=== PATIENT | female | born 1960 | race Caucasian/White ===

== ENCOUNTER 2024-09-11 13:42 | Inpatient (IN) | payer MEDICARE, OTHER, SELFPAY ==
[2024-09-11 07:20] VITALS: BP 121/87
--- NOTE | 2024-09-11 08:34 | ED.GENMED ---
History of Present Illness
General
Chief Complaint: Abdominal Symptoms
Time Seen by Provider: 09/11/24 08:09
History of Present Illness
History of Present Illness:
63-year-old female with history of breast cancer in remission (treatment in 2010) presents to the emergency department for evaluation of abdominal distention, weight loss, intolerance, and night sweats for the past 2 months. Saw her primary care
physician last week and was ordered for an outpatient oral and IV contrast CT scan however she is unable to tolerate significant amounts of oral hydration at this point. She reports abdominal discomfort but no overt pain. Denies dyspnea or chest
pain. No prior history of tobacco use. Denies any vaginal discharge or bleeding
Past History
Past History
ED Past Medical History: Cancer and Hyperthyroidism
ED Past Surgical History: Gynecological and Other
Patient has exhibited threatening behavior?: No
Social History
Tobacco: Non-smoker
Alcohol: None
Drug: None
Living: with family
Review of Systems
Review of Systems
Allergies reviewed?: Yes
All Other Systems: ROS reviewed and negative except as documented in HPI and ROS
Phy Exam
Physical Exam
Physical Exam:
GEN: Thin and cachectic, no immediate distress, generally pale
HEENT: Oral mucosa moist, no scleral icterus
Cardiac: Tachycardic, regular
Lung: No respiratory distress, no tachypnea, lungs CTAB
Abdomen: Severe distention/ascites, nontender
MSK: No gross deformity or injuries
Skin: Generally pale, no jaundice, no petechial lesions
Neuro: AO x3, moves all extremities freely
Psych: Calm, cooperative
Course
Orders/Labs/Results
Orders:
Orders
09/11/24 08:31
CT Abd/Pel (IV only)-DH only Urgent
Comment:
Reason For Exam: abd distention/bloating
09/11/24 08:33
Lactated Ringers [Lr] 500 ml IV BOLUS
09/11/24 08:36
Electrocardiogram (*1) Urgent
Reason for Study: Tachycardia
EKG- Treatment ONCE
09/11/24 09:08
Type+Screen Urgent
CA 125 Routine
Comment: ADD ON
CEA Routine
Comment: ADD ON
Complete Blood Count/With Diff Urgent
Comprehensive Metabolic Panel Urgent
Magnesium Urgent
09/11/24 12:48
Admit/Transfer Patient As Directed
Co-Sign Provider:
Level of Care: Inpatient admission
Assign to:: Telemetry
Physician / Group: pasricha/medicine
Diagnosis: decrease po intake, adnexal mass
Reason for Telemetry: Arrhythmia
Date to Stop Telemetry: 09/14/24
Time to Stop Telemetry: 11:00
Reason for Hospitalization: decrease po intake, adnexal mass
Expected length of stay greater than two midnights?: Yes
ELOS- Estimated Length of Stay in days: 3
I certify the patient meets the requirements for IP care: Yes
PRN Pain Medication Management As Directed
May give lesser potent ordered pain med per pt: Yes
preference::
Protocol:: Medication orders for pain may be administered in a
manner that supports deferring to patient preference
when the pt is:
- Requesting an ordered lesser potent pain medication.
Least to most potent pain medications are defined
as: acetaminophen < NSAID < tramadol < opioids
(morphine, oxycodone, hydromorphone).
- Requesting a lesser dose of the same medication IF
ORDERED.
- Requesting a less intrusive route of administration
if both routes are prescribed by the provider (PO <
IV).
09/11/24 12:51
Code Status As Directed
Resuscitation Status: Full Code
09/14/24 11:00
DC Protocol for Telemetry ONCE
Abnormal Lab Results
09/11/24
09:08
MCH 26.4 L pg
(27.0-31.0)
MCHC 31.7 L g/dL
(33.0-37.0)
RDW 17.4 H %
(11.5-14.5)
Plt Count 467 H 10^3/uL
(130-400)
Abs Immat Gran (auto) 0.1 H 10^3/uL
(0-0.05)
Absolute Neuts (auto) 8.7 H 10^3/uL
(1.4-6.5)
Absolute Lymphs (auto) 0.8 L 10^3/uL
(1.2-3.4)
Immature Gran % 0.6 H %
(0-0.5)
Neutrophils % 85.1 H %
(42.2-75.2)
Lymphocytes % 7.9 L %
(20.5-51.1)
Potassium 5.3 H mmol/L
(3.5-5.1)
Glucose 119 H mg/dl
(70-99)
AST 56 H U/L
(14-36)
Alkaline Phosphatase 181 H U/L
(38-126)
09/11/24 09:08
09/11/24 09:08
Vital Signs
Initial and Last Documented VS:
Initial Vital Signs
Temp Pulse BP Pulse Ox
97.7 F 136 121/87 98
09/11/24 07:20 09/11/24 07:20 09/11/24 07:20 09/11/24 07:20
Last Documented Vital Signs
Temp Pulse Resp BP Pulse Ox
97.7 F 114 20 110/79 97
09/11/24 07:20 09/11/24 12:00 09/11/24 12:00 09/11/24 12:00 09/11/24 12:00
MDM/Problems Addressed
MDM/Problems Addressed:
Patient with newly diagnosed ovarian masses significant peritoneal carcinomatosis as well as ascites, will require admission due to inability to tolerate p.o. fluids, [employer] On[facility] consulted for inpatient evaluation
*Pulse Oximetry
SaO2: 98
Patient hypoxic: no
*Critical Care Note
Total Time (30-74mins, 75-104mins- exclusive of procedures): Not Applicable
ED Attending Note
-
Portions of this chart may have been created with voice recognition software.� Occasional wrong word or��sound alike� substitutions may have occurred due to the inherent limitations of voice recognition software.
Discharge Plan
Departure
Patient Disposition: Admit
Date of Disposition: 09/11/24
Time of Disposition: 11:31
Admit to: Med/Surg
Presentation/result/management discussed w/ accepting MD/DO: Hospitalist
Discharge Problem:
Mass of ovary, Peritoneal carcinomatosis, Abdominal ascites
Interventions
Interventions:
*Risk Screen - Suicide Last Done: 09/11/24 07:23
*General Assessment Last Done: 09/11/24 14:00
*Neglect/Abuse Screening Last Done: 09/11/24 14:00
*ED- Fall Risk Assessment Last Done: 09/11/24 14:00
UU-Bzpbjf-Pmbirdldjj Assessment Last Done: 09/11/24 14:00
[2024-09-11] MEDS: LR 500 IV (09:12)
[2024-09-11 09:30] LABS: Hematocrit 41.3 % (37.0-47.0); Hemoglobin 13.1 g/dL (12.0-16.0); Mean Corp Hgb Conc. 31.7 g/dL (33.0-37.0); Mean Corpuscular Volume 83.1 fL (81.0-99.0); Nucleated Red Blood Cells % 0 %; Platelet Count 467 10^3/uL (130-400); Red Cell Dist. Width 17.4 % (11.5-14.5)
[2024-09-11 09:48] LABS: ALT (SGPT) 12 U/L (0-35); AST (SGOT) 56 U/L (14-36); Albumin 3.6 g/dl (3.5-5.0); Alkaline Phosphatase 181 U/L (38-126); Blood Urea Nitrogen 16 mg/dl (7-17); Calcium 8.9 mg/dl (8.4-10.2); Carbon Dioxide 23 mmol/L (22-30); Chloride 104 mmol/L (98-107); Glucose 119 mg/dl (70-99); Magnesium 2.1 mg/dl (1.6-2.3); Potassium 5.3 mmol/L (3.5-5.1); Sodium 138 mmol/L (135-145); Total Protein 6.7 g/dl (6.3-8.2); eGFR > 60.00
[2024-09-11 12:00] VITALS: BP 110/79
--- NOTE | 2024-09-11 12:25 | PHANOTE ---
09/11/2024, was prescribed Atorvastatin 20 mg to be taken daily for 90-day supply on 09/07/2024, but has not started taking it yet per pt.
--- NOTE | 2024-09-11 12:57 | HPS.HSE ---
Family Physician
-
Family Physician: JULEE John
Chief Complaint
-
Abdominal distention, weight loss, intolerance of night sweats for the past 2 months
History of Present Illness
Patient is a 63-year-old female with past medical history of breast cancer in remission with treatment in 2010 now presenting for apprimately 2 months of abdominal distention, weight loss, PO intolerance and night sweats. Patient was seen by
primary care physician due to the symptoms last week and had ordered CT imaging although unable to tolerate p.o. intake. Denies fever, chills, nausea, vomiting although does have abdominal discomfort due to distention. No chest pain. No vaginal
bleeding or discharge. Cannot tolerate PO even with appetite due to distension. Vitals remarkable for heart rate of 136, temperature is afebrile, with blood pressure 121/87, saturating 98% on room air. Imaging notable for large heterogeneous,
mixed cystic and solid lesions within the adnexa which extends to the mid abdomen. Also noted to have omental caking, likely representing metastatic disease, moderate ascites and moderate right pleural effusions. Also noted hypodensities within
the right hepatic lobe concerning for metastasis. Further has heterogeneous appearance of the lumbar spine and pelvis, may be secondary to osteopenia although osseous metastasis is now excluded. Mild bilateral hydronephrosis, likely secondary
large pelvic lesions. Labs notable for potassium of 5.3, AST 56, alk phos 181.
Medical History
Past Medical History
Past Medical History: Reports Hyperthyroidism and Other (Breast cancer in remission, treatment 2010)
Past Surgical History: Reports Gynocological
Social History
Tobacco: Non-smoker
Alcohol: None
Drug: None
Living: With Family
Family History
Family History: Not pertinent
Allergies / Home Medications
Allergies reflects when Allergies were last updated in [facility].
Home Medications with original date entered in [facility]
Allergy/Medication List:
Allergies
Allergy/AdvReac Type Severity Reaction Status Date / Time
Cephalosporins Allergy Unknown Verified 07/09/21 13:10
penicillin G Allergy Unknown Verified 07/09/21 13:10
Penicillins Allergy Unknown Verified 07/09/21 13:10
Home Medications
No Meds [No Current Medications] 09/11/24
Review of Systems
-
History Source: Patient
A 12 point ROS was completed and negative except as noted: Yes
Physical Exam
Vital Signs
Vital Signs
Temp Pulse BP Pulse Ox
97.7 F 136 121/87 98
09/11/24 07:20 09/11/24 07:20 09/11/24 07:20 09/11/24 08:35
Physical Exam
General: Cachectic and Other (Thin, no immediate distress)
HEENT: NormoCephalic and Anicteric
Respiratory: Clear
Cardiac: Tachycardia
GI: Non Tender and Distended
Musculoskeletal: No Clubbing
Skin: Warm
Neuro: Awake, Alert, Oriented and AO x 3
Hematologic/Lymphatic: No Lymphadenopathy
Laboratory Results
-
09/11/24 09:08
09/11/24 09:08
Laboratory Results
Total Bilirubin 0.7 mg/dl (0.2-1.3) 09/11/24 09:08
AST 56 U/L (14-36) H 09/11/24 09:08
ALT 12 U/L (0-35) 09/11/24 09:08
Alkaline Phosphatase 181 U/L (38-126) H 09/11/24 09:08
Data Reviewed
-
CT Scan: Report Reviewed by me
Lab Data: Labs Reviewed by me
Impression/Plan
-
IMPRESSION:
63-year-old female with past medical history of breast cancer in remission with treatment in 2010 now presenting for 2 months of abdominal distention, weight loss, intolerance and night sweats. Imaging concerning for adnexal mass with metastatic
disease
PLAN:
#Abdominal distention
� Moderate ascites on imaging
� Paracentesis ordered
� Follow-up cytology
� Supportive care, pain control, antiemetics with Tigan as QTc elevated
#Decreased p.o. intake
� Most likely secondary to abdominal distention as well as metastatic disease
� Attempt liquid diet if has any appetite
� Hopeful diet will improve after paracentesis
#Heterogeneous large mixed cystic and solid lesions within the adnexa extending into the mid abdomen
#Omental caking, peritoneal thickening, suspicious of metastatic disease
#Moderate ascites and moderate right pleural effusion
#Hypodensities in the right hepatic lobe
#Heterogeneous appearance of the lumbar spine
� See plan above
� Oncology consulted
� Otm Consultant/Onc consulted
#Transaminitis
� Secondary to above
� See plan above
#Mild bilateral hydronephrosis
� No SHIVANI
� Likely secondary to large pelvic lesions
� Monitor
#Small/moderate hiatal hernia containing ascites
#DVT prophylaxis
� HSQ
--- NOTE | 2024-09-11 14:23 | CON.ONC ---
Consultation
-
Date Consultation Requested: 09/11/24
Date Consultation Performed: 09/11/24
Requesting Provider: Dr Efrain Bryson
Performing Provider: Dr Lacy Ellington
Reason for Consultation: ovarian cancer
Impression
Impression
likely ovarian cancer, with carcinomatosis
h/o breast cancer, 2011, treated w/ chemo, anti-estrogen therapy
Plan
Plan
IR paracentesis for palliation and cytology
Will also ask them to obtain a tissue biopsy at the same time
CA-125, CEA, CA27-29 pending
po diet as tolerated, antiemetics if needed
Briefly discussed the likelihood that she'll need chemo first, then debulking surgery
Will need genetic testing
Dr. العراقي to see patient tomorrow
Patient History
History of Present Illness
This is a 63 yo F who noted increasing abdominal distention and discomfort over the past couple months. She recently csought evaluation with her PMD, whom she hadn't seen regularly, and CT was ordered, but she was unable to wait for outpatient w/u
due to increased symptoms (nausea, vomiting/regurgitation, distention), so she presented to the ER.
CT showed:
There are large heterogeneous, mixed cystic and solid lesions within the adnexa which extend into the mid abdomen and are highly concerning for ovarian malignancy. The larger lesion on the right measures up to 18.7 cm. There is associated omental
caking, peritoneal thickening and enhancement which likely represent metastatic disease. There are numerous small nodules within the mesentery suspicious for mesenteric implants. There is associated moderate ascites and a moderate right pleural
effusion.
Hypodensities within the right hepatic lobe measuring up to 5 mm, concerning for metastasis in the setting of malignancy.
There is heterogeneous appearance of the lumbar spine and pelvis may be secondary to osteopenia although underlying osseous metastasis cannot be excluded.
There is mild bilateral hydronephrosis, more pronounced on the left, likely secondary to the large pelvic lesions.
Medical hx is noted for breast cancer around 2011, treated with surgery, chemo (ddAC-T?), radiation, and anti-estrogen therapy (Dr. Velazquez and Dr. Reyna Rios at [facility]). She has not had genetic testing. Her father from stomach cancer. She's
overdue for mammogram. Her PMD had done her [employer] exams, but none recently.
Past-Medical/Surgical History
PMH/PSH - as above
Social History
Tobacco: Non-smoker
Alcohol: None
Drug: None
Living: With Family
Family History
Family History: Not pertinent
Patient Medication
�Medication �Instructions �Recorded �Confirmed �Last Taken �Type
No Meds [No Current Medications] 09/11/24 09/11/24 Unknown History
Physical Exam
-
General: Appears Chronically Ill; Negative Well Developed
HEENT: Negative Jaundice
Cardiology: Normal Sinus Rhythm
Pulmonary: Other (decreased BS in right lower hemithorax)
GI: Distended and Other (mass palpated in far RLQ)
Neurology: Non Focal, No Lateralizing Symptoms and No Word Finding Difficulty
Skin: Warm and Dry
Psych: Calm and Intact Judgement/Insight
Labs
Lab Results
WBC 10.3 10^3/uL (4.8-10.8) 09/11/24 09:08
RBC 4.97 10^6/uL (4.20-5.40) 09/11/24 09:08
Hgb 13.1 g/dL (12.0-16.0) 09/11/24 09:08
Hct 41.3 % (37.0-47.0) 09/11/24 09:08
MCV 83.1 fL (81.0-99.0) 09/11/24 09:08
MCH 26.4 pg (27.0-31.0) L 09/11/24 09:08
MCHC 31.7 g/dL (33.0-37.0) L 09/11/24 09:08
RDW 17.4 % (11.5-14.5) H 09/11/24 09:08
Plt Count 467 10^3/uL (130-400) H 09/11/24 09:08
MPV 9.1 fL (7.4-10.4) 09/11/24 09:08
Abs Immat Gran (auto) 0.1 10^3/uL (0-0.05) H 09/11/24 09:08
Absolute Neuts (auto) 8.7 10^3/uL (1.4-6.5) H 09/11/24 09:08
Absolute Lymphs (auto) 0.8 10^3/uL (1.2-3.4) L 09/11/24 09:08
Absolute Monos (auto) 0.6 10^3/uL (0.1-0.6) 09/11/24 09:08
Absolute Eos (auto) 0.0 10^3/uL (0-0.7) 09/11/24 09:08
Absolute Basos (auto) 0.1 10^3/uL (0-0.2) 09/11/24 09:08
Immature Gran % 0.6 % (0-0.5) H 09/11/24 09:08
Neutrophils % 85.1 % (42.2-75.2) H 09/11/24 09:08
Lymphocytes % 7.9 % (20.5-51.1) L 09/11/24 09:08
Monocytes % 5.9 % (1.7-9.3) 09/11/24 09:08
Eosinophils % 0.0 % (0-6) 09/11/24 09:08
Basophils % 0.5 % (0-2) 09/11/24 09:08
Creatinine 0.8 mg/dL (0.6-1.0) 09/11/24 09:08
Vital Signs
Vital Signs
Temp Pulse Resp BP Pulse Ox
97.7 F 114 20 110/79 97
09/11/24 07:20 09/11/24 12:00 09/11/24 12:00 09/11/24 12:00 09/11/24 12:00
[2024-09-11 14:51] LABS: CEA 45.6 ng/ml
[2024-09-11 15:00] VITALS: BP 127/83
[2024-09-11] MEDS: MORPHINE SULFATE 2 MG IV ×2 (15:22→19:57)
[2024-09-11] MEDS: D5/0.45%NACL 1000 IV (15:22)
[2024-09-11 15:57] VITALS: BMI 21.5
[2024-09-11] MEDS: TORADOL 10 MG IV (17:49)
[2024-09-11 19:42] VITALS: BP 121/80
[2024-09-11] MEDS: DILAUDID 0.25 MG IV (21:54)
[2024-09-11 23:56] VITALS: BP 126/85
[2024-09-12] VITALS (8 sets, daily range): BP systolic 104–149; BP diastolic 69–101; BMI 21.5
[2024-09-12] MEDS: MORPHINE SULFATE 2 MG IV ×2 (00:48→20:48)
[2024-09-12] MEDS: D5/0.45%NACL 1000 IV ×2 (04:21→21:31)
[2024-09-12] MEDS: DILAUDID 0.25 MG IV (04:21)
[2024-09-12 07:30] LABS: Hematocrit 34.1 % (37.0-47.0); Hemoglobin 10.9 g/dL (12.0-16.0); Mean Corp Hgb Conc. 32.0 g/dL (33.0-37.0); Mean Corpuscular Volume 82.8 fL (81.0-99.0); Platelet Count 424 10^3/uL (130-400); Red Cell Dist. Width 17.2 % (11.5-14.5)
[2024-09-12 07:48] LABS: ALT (SGPT) < 10 U/L (0-35); AST (SGOT) 45 U/L (14-36); Albumin 3.1 g/dl (3.5-5.0); Alkaline Phosphatase 148 U/L (38-126); Blood Urea Nitrogen 21 mg/dl (7-17); Calcium 8.6 mg/dl (8.4-10.2); Carbon Dioxide 26 mmol/L (22-30); Chloride 107 mmol/L (98-107); Estimated Creatinine Clearance 57 ml/min; Glucose 135 mg/dl (70-99); Magnesium 2.1 mg/dl (1.6-2.3); Potassium 4.5 mmol/L (3.5-5.1); Sodium 136 mmol/L (135-145); Total Protein 6.0 g/dl (6.3-8.2); eGFR > 60.00
--- NOTE | 2024-09-12 08:33 | W.CON.GYNONC ---
Consultation
-
Date/Time Consultation Requested: 09/12/2024
Date/Time Consultation Performed: 09/12/2024
Performing Provider: Mickey العراقي
Reason for Consultation: Pelvic mass, Ascites
Chief Complaint
-
abdominal fullness
History of Present Illness
63 yo menopausal white female who noted increasing abdominal distention and discomfort over the past couple months. She recently sought evaluation from PCP at [place], and CT was ordered. Due to increased symptoms (nausea,
vomiting/regurgitation, distention), so she presented to the ER. Patient has had abnormal weight loss of about 15 pounds over the last 6 months. Patient describes sensation of shortness of breath with activity, has no ability to eat. Gets full
very fast, describes discomfort due to abdominal distention
CT showed:
There are large heterogeneous, mixed cystic and solid lesions within the adnexa which extend into the mid abdomen and are highly concerning for ovarian malignancy. The larger lesion on the right measures up to 18.7 cm. There is associated omental
caking, peritoneal thickening and enhancement which likely represent metastatic disease. There are numerous small nodules within the mesentery suspicious for mesenteric implants. There is associated moderate ascites and a moderate right pleural
effusion. Hypodensities within the right hepatic lobe measuring up to 5 mm, concerning for metastasis in the setting of malignancy. There is heterogeneous appearance of the lumbar spine and pelvis may be secondary to osteopenia although underlying
osseous metastasis cannot be excluded.There is mild bilateral hydronephrosis, more pronounced on the left, likely secondary to the large pelvic lesions.
PMH:
Hypercholestrolemia
Breast cancer around 2011, treated with surgery, chemo (ddAC-T), radiation, and anti-estrogen therapy (Dr. Velazquez and Dr. Reyna Rios at [facility]). Patient has been getting MRI of the breast, has not had one for couple years
PSH:
Right kidney surgery for kidney stone at age 20
Left kidney surgery for abnormal ureter, ureteral reconstruction
C section
Past gynecologic history: term , 36 yrs ago, delivered by c section
Menopause at age 49
Denies previous Pap smears. Exams were done by PCP but has not had one for a few years
Family history: Father with stomach cancer
Patient has not undergone germline genetic testing
Social history: Patient is an artist graphic design, denies tobacco drug or marijuana use, has had occasional seldom alcohol
She is but has a ongoing relationship with ex-
Screening tests: Colonoscopy in 2016, EGD and colonoscopy in 2021
Mammogram none
Medical History
Allergies
Allergies reflect when allergies were last updated in [facility].
Cephalosporins Allergy (Verified 07/09/21 13:10)
Unknown
penicillin G Allergy (Verified 07/09/21 13:10)
Unknown
Penicillins Allergy (Verified 07/09/21 13:10)
Unknown
Physical Exam
Vital Signs / I&O
Vitals
Temp Pulse Resp BP Pulse Ox
98.0 F 109 17 112/76 98
09/12/24 07:00 09/12/24 07:00 09/12/24 07:00 09/12/24 07:00 09/12/24 07:00
I&O
09/10/24 09/11/24 09/12/24 09/13/24
06:59 06:59 06:59 06:59
Intake Total 900 / 900
Balance 900 / 900
Physical Exam
General: Other (Resting in bed, she appears to be chronically ill with temporal wasting and has apparent abnormal weight loss)
HEENT: Normocephalic
Respiratory: Non Labored Respirations and Other (There is no breath sounds in the lower half of right lung, at rest she does not have any labored respirations)
Cardiac: Tachycardia
GI: Distended and Other (There is firmness in the right lower abdomen, fluid wave present)
Musculoskeletal: No Clubbing, No Cyanosis and No Edema
Skin: Warm and Dry
Neuro: Awake, Alert and Oriented
Hematologic/Lymphatic: No Lymphadenopathy
Psych: Calm and Anxious
Results
-
09/12/24 06:03
09/12/24 06:03
Diagnostic Imaging Report
SignedOrder #:[id number]
Exams: CT Abd/Pel (IV only)-DH only
PROCEDURES: CT Abd/Pel (IV only)-DH only
CLINICAL INDICATION: abd distention/bloating
TECHNIQUE: Multiphasic CT of the abdomen and pelvis was performed from the lung bases to the pubic symphysis following the uneventful intravenous administration of 100 mL of Omnipaque 350. Scanning was performed during both the portal venous and
delayed phases of enhancement. Axial reconstructions and sagittal and coronal reformats provided. Automated dose reduction technique was utilized for this exam
COMPARISON: CT abdomen pelvis 05/24/2021.
FINDINGS:
Lower Chest: There is a moderate pleural effusion with associated right basilar atelectasis. Small/moderate hiatal hernia containing ascites.
Abdomen:
Liver: There are small hypodensities within the right hepatic lobe measuring up to 5 mm laterally (series 201 image 15).
Bile Ducts: Within normal limits.
Gallbladder: Nondistended.
Pancreas: There is a 3 mm hypodense focus within the tail (series 201 image 25).
Spleen: Within normal limits.
Adrenals: No discrete nodule.
Kidneys/Ureters: Mild hydronephrosis, more pronounced on the left.
Bowel: No obstruction or wall thickening. There is mass effect on the bowel secondary to the large lesions described below.
Peritoneum: There is moderate ascites with extensive peritoneal thickening and enhancement most pronounced in the right upper quadrant as well as omental soft tissue nodules measuring up to 3.5 x 2.2 cm in the left mid/lower abdomen (series 201
image 47). There are numerous small nodules within the mesentery suspicious for mesenteric implants.
Reproductive Organs: There are large, heterogeneous mixed cystic and solid lesions within the pelvis extending into the right abdomen which measures approximately 18.5 x 11.0 x 18.7 cm on the right (series 201 image 52 and series 203 image 38).
There appears to be a likely separate left adnexal lesion which measures approximately 7.6 x 4.9 x 6.1 cm (series 201 image 70 and series 203 image 49).
Bladder: Nondistended.
Vessels: There is no abdominal aortic aneurysm.
Retroaortic left renal vein.
Retroperitoneum: There is no definite lymphadenopathy. Abdominal Wall: Within normal limits.
Bones: No evidence acute fracture. There is heterogeneous appearance of the pelvis and spine which may be secondary to osteopenia although in the setting of malignancy osseous metastasis cannot be excluded.
IMPRESSION:
There are large heterogeneous, mixed cystic and solid lesions within the adnexa which extend into the mid abdomen and are highly concerning for ovarian malignancy. The larger lesion on the right measures up to 18.7 cm. There is associated omental
caking, peritoneal thickening and enhancement which likely represent metastatic disease. There are numerous small nodules within the mesentery suspicious for mesenteric implants. There is associated moderate ascites and a moderate right pleural
effusion.
Hypodensities within the right hepatic lobe measuring up to 5 mm, concerning for metastasis in the setting of malignancy.
There is heterogeneous appearance of the lumbar spine and pelvis may be secondary to osteopenia although underlying osseous metastasis cannot be excluded.
There is mild bilateral hydronephrosis, more pronounced on the left, likely secondary to the large pelvic lesions.
Small/moderate hiatal hernia containing ascites.
Recommend gynecologic oncology referral.
Electronically signed by Brant Schmitt MD, 09/11/2024 10:52 AM
[employer] Dose Report: Up-to-date CT equipment and radiation dose reduction techniques were employed. CTDIvol: 6.6 mGy. DLP: 682 mGy-cm.
Dictated By: Brant Schmitt MD
Dictated Date & Time: 09/11/24 1034
Impression / Plan
-
63-year-old woman presenting with pelvic mass abdominal ascites carcinomatosis and right pleural effusion. She has evidence of tachycardia, abnormal weight loss, and her labs are significant for anemia, thrombocytosis. Because of prior history of
breast cancer we need to consider this in the differential diagnosis. Her CEA is quite elevated at 46 which is unusual for gynecologic cancers, consider possibility of a primary GI cancer, it may be reasonable to ask GI for colonoscopy and
endoscopy although we will be difficult given current state. This patient is not a candidate for upfront surgery even if gynecologic cancer is confirmed on histology, I do recommend the following approach, with the understanding that most likely
the patient will need to undergo neoadjuvant chemotherapy followed by consideration of interval debulking surgery.
1. Pelvic mass: While this presentation is typical for gynecologic cancers further workup is required.
- Recommend pelvic ultrasound, as well as pelvic MRI
-IR to perform paracentesis
- CA125 pending
- IR biopsy of the omentum is recommended
2. Pleural effusion
- IR to perform right thoracentesis, therapeutic and diagnostic, sent for cytology
3. Tachycardia
- Patient is at high risk for pulmonary embolism. CT chest with PE protocol,
-Dopplers of the lower extremity
- Patient needs a baseline echocardiogram given prior history of Adriamycin chemotherapy for breast cancer
4. Anemia
- Will send labs for ferritin B12 folic acid but it may be due to anemia of chronic disease
5. History of complex urologic surgery
When surgical plan is made for this patient we need to involve urology and consider stent placement because of reconstruction as well as mobilization of ureter previously. Consider outpatient CT urogram
Mickey العراقي MD
Gynecologic Oncology
[facility]
--- NOTE | 2024-09-12 09:20 | W.PN.HOSP.TC ---
Today's Communication/Plan
-
see plan
Assessment / Plan
Assessment / Plan
63 F with past medical history of breast CA in remission with tx in 2010 now presenting for 2 months of abdominal distention, weight loss, intolerance and night sweats. Imaging concerning for adnexal mass with metastatic disease.
Gen: NAD, AAOx3, appears chronically ill.
Eyes: EOMI, PERRLA, no scleral icterus.
Neck: supple.
CV: RRR, +S1/S2, no m/r/g.
Resp: CTAB, no rales, wheezes, or rhonchi.
Abd: +BS, soft, NT, mild distention with ascites, palpable lower abdominal mass
Skin: No rashes.
Neuro: CN 2-12 intact, non-focal.
Psych: Normal mood and affect.
CT A/P: There are large heterogeneous, mixed cystic and solid lesions within the adnexa which extend into the mid abdomen and are highly concerning for ovarian malignancy. The larger lesion on the right measures up to 18.7 cm. There is associated
omental caking, peritoneal thickening and enhancement which likely represent metastatic disease. There are numerous small nodules within the mesentery suspicious for mesenteric implants. There is associated moderate ascites and a moderate right
pleural effusion. Hypodensities within the right hepatic lobe measuring up to 5 mm, concerning for metastasis in the setting of malignancy. There is heterogeneous appearance of the lumbar spine and pelvis may be secondary to osteopenia although
underlying osseous metastasis cannot be excluded. There is mild bilateral hydronephrosis, more pronounced on the left, likely secondary to the large pelvic lesions. Small/moderate hiatal hernia containing ascites.
Abdominal distention:
-CT A/P above with findings concerning for solid lesion (possibly ovarian malignancy) with evidence of likely metastatic disease (omental caking, peritoneal thickening, numerous small nodules in the mesentery)
-s/p Dx/Tx paracentesis for 1L, follow cytology
-ONC and [facility]scape [facility]-ONC following (discussed with consultants)
-pain control, antiemetics
-decreased PO intake likely due to abdominal pathology, liquid diet for now pending paracentesis (although pt states vomiting this AM and inability to 'keep anything down')
-cont IVFs
-transaminitis likely due to abdominal process
-mild bilateral hydronephrosis (without SHIVANI) likely due to large pelvic lesion
-CEA 45.6
-check CA-125, CA27-29
Anemia:
-likely anemia of chronic disease
-drop in Hb likely dilutional
Small/moderate hiatal hernia containing ascites
FULL/heparin
Total time spent on today's encounter was 50 minutes which included time spent in counseling the patient/family regarding diagnosis and treatment plan as listed above, goals of care, and symptom management. Case was discussed with nursing staff,
specialists, and care coordinators/case management. All labs and imaging personally reviewed by me. Remainder the time spent in detailed review of previous records, lab data, imaging, and other medical provider documentation.
Anticipated Discharge: 24 - 48 hours
Subjective/Interval History
-
Date of Service: September 12, 2024
No new complaints.
Objective Data
-
Labs:
Laboratory Results
09/12/24
06:03
WBC 10.1
Hgb 10.9 L
Hct 34.1 L
Plt Count 424 H
Sodium 136
Potassium 4.5
Chloride 107
Carbon Dioxide 26
BUN 21 H
Creatinine 0.8
Glucose 135 H
Calcium 8.6
Total Bilirubin 0.5
AST 45 H
ALT < 10
Alkaline Phosphatase 148 H
Vital Signs:
Vital Signs
Temp Pulse Resp BP Pulse Ox
98.0 F 109 17 112/76 98
09/12/24 07:00 09/12/24 07:00 09/12/24 07:00 09/12/24 07:00 09/12/24 07:00
I&O
09/11/24 09/12/24 09/13/24
06:59 06:59 06:59
Intake Total 900 / 900
Balance 900 / 900
[2024-09-12 09:33] LABS: Iron 25 ug/dl (37-170)
--- NOTE | 2024-09-12 11:49 | W.PN.UPDATE ---
Update Note
Progress Note Update
- Paracentesis performed this morning - 1L removed.
- Pt feeling better after para, non-toxic and non-labored breathing. She also has a moderate right effusion which we can re-evaluate tomorrow
- Request from oncology for omental biopsy. Will tentatively schedule for tomorrow; will need CT guidance and also pathology on hand.
- NPO past midnight please.
[2024-09-12 11:53] LABS: Ferritin 367.0 ng/ml (11.1-264.0)
[2024-09-12 12:24] LABS: Folate 2.1 ng/ml (2.76-20); Vitamin B12 273 pg/ml (239-931)
[2024-09-12 12:40] LABS: Body Fluid Second Tech EF
[2024-09-12] MEDS: DILAUDID 0.5 MG IV (22:34)
[2024-09-13] VITALS (16 sets, daily range): BP systolic 99–123; BP diastolic 59–84
--- NOTE | 2024-09-13 03:28 | PTCARENOTE ---
Oral care was not performed on patient because she stated that it was her preference to brush her teeth in the morning.
--- NOTE | 2024-09-13 07:21 | PTCARENOTE ---
The 480 ml consumed was in the form of ice chips.
--- NOTE | 2024-09-13 08:37 | W.PN.GYNONC ---
Today's Communication
-
IR for omental biopsy and thoracenthesis
Cardiac clearance
port placement tomorrow
Impression / Plan
-
63-year-old woman presenting with pelvic mass abdominal ascites carcinomatosis and right pleural effusion. She has evidence of tachycardia, abnormal weight loss, and her labs are significant for anemia, thrombocytosis. I spoke at length with
patient and her ex- yesterday evening about ongoing investigations as well as potential plans for Neoadjuvant chemo if diagnosis of ovarian or mullerian tract malignancy is confirmed. She is not a good candidate for upfront surgery due to low
albumin 3.1, large pleural effusion and significant weight loss.
1. Pelvic mass:
- US confirms complex masses in both adnexa, uterus is normal, ascites seen
- 1L malignant ascites removed, cytology pending
- CA125 pending
- IR biopsy of the omentum is scheduled (today)
- Consider port placement prior to discharge
2. Pleural effusion
- IR to perform right thoracentesis, therapeutic and diagnostic, send for cytology, discussed with atttending stitcher tape controlled machine (today)
3. Tachycardia
-CT chest shows large pleural effusion, no PE, US LE shows no DVT
- Patient needs a baseline echocardiogram given prior history of Adriamycin chemotherapy for breast cancer
-consider getting a cardiac clearance for potential surgery (interval debulking)
4. Anemia
- Both Folate and B12 are low, recommend supplementation, ferritin is ok, elevated probably reactive
5. History of complex urologic surgery
When Interval debulking surgical plan is made for this patient we need to involve urology and consider stent placement because of reconstruction as well as mobilization of ureter previously. Consider outpatient CT urogram
Mickey العراقي MD
Gynecologic Oncology
[facility]

Subjective / Interval History
-
HD3
Patient feels better, was able to eat yesterday evening
Objective Data
-
Lab Results:
09/12/24 06:03
09/12/24 06:03
iagnostic Imaging Report
SignedOrder #:[id number]
Exams: CT Chest PE Study
EXAMINATION: CT angiography of the chest, pulmonary embolism protocol
CPT: 87332
INDICATION: 63-year-old with tachycardia and pleural effusion
COMPARISON: Chest radiograph of June 23, 2021. CT of the abdomen and pelvis from September 11, 2024.
FINDINGS: Intravenous contrast-enhanced CT angiography of the chest is performed with protocol designed for evaluation for pulmonary embolism. Source axial images are reviewed as well as 3-D volume and multiplanar reconstructions. Automatic
exposure control radiation dose reduction technology was utilized.
Pulmonary arteries are well-opacified, and examination is negative for pulmonary embolism.
Moderate to large right pleural effusion is present. There is slight irregular thickening of the hemidiaphragm, and combined with findings on CT of the abdomen and pelvis raises the possibility of malignant pleural effusion, although still could be
a reactive pleural effusion. Mild dependent atelectasis in the posterior right lung.
There is a trace amount of left pleural fluid with minimal dependent atelectasis in the posterior left lower lung.
Mild peripheral increased interstitial markings in the anterolateral lingula, perhaps from radiation therapy with surgical clips seen within the left breast.
There is a small central hiatal hernia, with abdominal fluid extending superiorly through the hernia.
The thoracic aorta appears normal with no significant atherosclerotic disease and no evidence of aneurysm.
The right lobe of the thyroid is larger than the left, although without evidence of a dominant nodule.
No grossly enlarged mediastinal, hilar, or axillary lymph nodes are identified.
Large amount of ascites in the visualized upper abdomen with findings suggesting peritoneal carcinomatosis. Mild fatty infiltration the liver. Minimal levoconvex scoliosis centered in the lower thoracic spine. Vertebral body heights are maintained.
No CT evidence to suggest bony metastatic disease within the chest.
IMPRESSION: Examination is negative for pulmonary embolus.
Moderate to large right pleural effusion with mild adjacent compressive atelectasis.
Trace amount of left pleural fluid with minimal dependent atelectasis in the posterior left lung.
Small central hiatal hernia, with abdominal ascites extending superiorly through the hernia.
The right lobe of the thyroid is larger than the left. This has been previously evaluated on thyroid ultrasound of January 19, 2020.
Large amount of ascites in the visualized upper abdomen with findings suggesting peritoneal carcinomatosis. Mild fatty infiltration of the liver
Electronically signed by Kenney Ramírez MD, 09/12/2024 12:23 PM
[employer]imetric[employer] Dose Report: Up-to-date CT equipment and radiation dose reduction techniques were employed. CTDIvol: 2.4 - 7.3 mGy. DLP: 245 mGy-cm.
Dictated By: Kenney Ramírez MD.
Dictated Date & Time: 09/12/24 1213
Diagnostic Imaging Report
SignedOrder #:[id number]
Exams: US Periph Venous LOWER Ext [place]
EXAMINATION: Bilateral lower extremity duplex venous ultrasound
CPT: 89872
INDICATION: Lower extremity edema. 63-year-old with adnexal mass. Concern for DVT.
COMPARISON: No previous lower extremity venous ultrasound is available.
FINDINGS: Duplex venous ultrasound of both lower extremities is performed.
There is no evidence for deep venous thrombosis bilaterally. There is normal compressibility, color flow, and spectral Doppler flow of the deep venous system bilaterally from the common femoral vein through the posterior tibial vein. The proximal
greater saphenous veins are also patent bilaterally.
On the right, there is a Knight's cyst which measures 2.6 x 0.7 x 1.3 cm.
On the left, there is a Knight's cyst which measures 2.3 x 1.1 x 1.6 cm.
IMPRESSION: No evidence of deep venous thrombosis bilaterally.
Electronically signed by Kenney Ramírez MD, 09/12/2024 12:01 PM
Diagnostic Imaging Report
SignedOrder #:[id number]
Exams: US Pelvis Only (non-obstetric)
EXAMINATION: Ultrasound pelvis only
INDICATION: 63-year-old with pelvic mass. Suspicion for malignancy. Evaluation of uterus.
COMPARISON: CT of the abdomen and pelvis of September 11, 2024.
FINDINGS: Ultrasound of the pelvis is performed using transabdominal technique through a distended urinary bladder.
There are 2 large mixed solid and cystic masses identified within the pelvis by ultrasound, corresponding to large masses seen on recent CT scan. It is difficult to determine if these are separate masses or lobulations of a single large mass when
correlating with the CT scan.
By ultrasound, mass in the right mid to lower abdomen measures 19 cm x 11 cm x 18.7 cm. A mass in the left mid to lower abdomen measures 9.0 x 4.8 x 5.5 cm. These masses are highly suspicious for malignancy. There is also ascites seen within the
visualized abdomen and pelvis.
The uterus is visualized, and the masses do not appear to originate from the uterus. The uterus measures 5.4 x 2.4 x 3.5 cm. No gross abnormality of the endometrium.
IMPRESSION: Ultrasound, there appear to be 2 large mixed cystic and solid masses, corresponding to mass or masses seen on recent CT. These very likely represent ovarian/adnexal malignancy.
Normal appearance of the uterus. No abnormality of the endometrium.
Ovaries are not visualized separately.
Electronically signed by Kenney Ramírez MD, 09/12/2024 2:15 PM
Dictated By: Kenney Ramírez MD.
Dictated Date & Time: 09/12/24 1411
Physical Exam
Vital Signs / I&O
Vitals
Temp Pulse Resp BP Pulse Ox
98.4 F 102 14 110/77 95
09/13/24 07:41 09/13/24 07:41 09/13/24 07:41 09/13/24 07:41 09/13/24 07:41
I&O
09/11/24 09/12/24 09/13/24 09/14/24
06:59 06:59 06:59 06:59
Intake Total 900 / 900 1440 / 1440 480 / 480
Balance 900 / 900 1440 / 1440 480 / 480
Physical Exam
General: No Apparent Distress
Respiratory: Non Labored Respirations and Other (decreased BS right lower lung, )
Cardiac: S1/S2 and Tachycardia
GI: Distended and Other (palpable firmness RLQ)
Skin: Warm
Neuro: Awake, Alert and Oriented
Hematologic/Lymphatic: No Lymphadenopathy
Psych: Calm
Data Reviewed
-
Diagnostic Radiology: Image personally visualized and interpreted
CT Scan: Image personally visualized and interpreted
Ultrasound: Image personally visualized and interpreted
--- NOTE | 2024-09-13 09:59 | W.PN.HOSP.TC ---
Addendum entered and electronically signed by Octaviano Palacio MD 09/13/24 10:36:
Moderate protein calorie malnutrition
Original Note:
Today's Communication/Plan
-
See plan
Assessment / Plan
Assessment / Plan
63 F with past medical history of breast CA in remission with tx in 2010 now presenting for 2 months of abdominal distention, weight loss, intolerance and night sweats. Imaging concerning for adnexal mass with metastatic disease.
Gen: remians NAD, AAOx3, appears chronically ill.
Eyes: EOMI, PERRLA, no scleral icterus.
Neck: supple.
CV: RRR, +S1/S2, no m/r/g.
Resp: CTAB anteriorly, no rales, wheezes, or rhonchi.
Abd: +BS, soft, NT, moderate distention with ascites, palpable lower abdominal mass
Skin: No rashes.
Neuro: CN 2-12 intact, non-focal.
Psych: Normal mood and affect.
CT A/P: There are large heterogeneous, mixed cystic and solid lesions within the adnexa which extend into the mid abdomen and are highly concerning for ovarian malignancy. The larger lesion on the right measures up to 18.7 cm. There is associated
omental caking, peritoneal thickening and enhancement which likely represent metastatic disease. There are numerous small nodules within the mesentery suspicious for mesenteric implants. There is associated moderate ascites and a moderate right
pleural effusion. Hypodensities within the right hepatic lobe measuring up to 5 mm, concerning for metastasis in the setting of malignancy. There is heterogeneous appearance of the lumbar spine and pelvis may be secondary to osteopenia although
underlying osseous metastasis cannot be excluded. There is mild bilateral hydronephrosis, more pronounced on the left, likely secondary to the large pelvic lesions. Small/moderate hiatal hernia containing ascites.
Abdominal distention:
-CT A/P above with findings concerning for solid lesion (possibly ovarian malignancy) with evidence of likely metastatic disease (omental caking, peritoneal thickening, numerous small nodules in the mesentery)
-s/p Dx/Tx paracentesis for 1L 09/12/24, follow cytology
-ONC and [facility]ne[facility]-ONC following (discussed with Dr. العراقي over the phone)
-pain control, antiemetics
-regular diet as tolerated
-cont IVFs
-transaminitis likely due to abdominal process
-mild bilateral hydronephrosis (without SHIVANI) likely due to large pelvic lesions
-CEA 45.6
-check CA-125, CA27-29
-IR to Bx omentum today
R pleural effusion:
-for Dx/Tx thoracentesis today
Anemia:
-multifactorial and due to anemia of chronic disease and Fe deficiency anemia
-drop in Hb likely dilutional
-IV Fe
Other problems:
Small/moderate hiatal hernia containing ascites
Hyperkalemia, resolved
Folate deficiency: PO folate
FULL/heparin
Total time spent on today's encounter was 53 minutes which included time spent in counseling the patient/family regarding diagnosis and treatment plan as listed above, goals of care, and symptom management. Case was discussed with nursing staff,
specialists, and care coordinators/case management. All labs and imaging personally reviewed by me. Remainder the time spent in detailed review of previous records, lab data, imaging, and other medical provider documentation.
Anticipated Discharge: Within 24 hours
Subjective/Interval History
-
Date of Service: September 13, 2024
Patient complains of abdominal distention. No other new complaints.
Objective Data
-
Vital Signs:
Vital Signs
Temp Pulse Resp BP Pulse Ox
98.4 F 102 14 110/77 95
09/13/24 07:41 09/13/24 07:41 09/13/24 07:41 09/13/24 07:41 09/13/24 07:41
I&O
09/12/24 09/13/24 09/14/24
06:59 06:59 06:59
Intake Total 900 / 900 1440 / 1440 480 / 480
Balance 900 / 900 1440 / 1440 480 / 480
--- NOTE | 2024-09-13 10:08 | CON.CAR ---
Addendum entered and electronically signed by Jet Alanis MD 09/13/24 20:38:
I saw and examined the patient.
The SUPPLY COORDINATOR's note was reviewed and I agree with the note.
Comment:
63-year-old female with history of breast cancer (s/p chemo/XRT) and hyperlipidemia who presented to ER with abdominal distention found to have CT suspicious for ovarian malignancy. Cardiology is consulted for preoperative risk stratification prior
to surgical debulking (planned in at least 9 weeks after chemotherapy). She is currently very limited in terms of exertion due to her abdominal distention. Even eating causes dyspnea. She is unable to complete 4 METS of activity. She is a never
smoker and has no family history of early coronary artery disease.
Physical exam notable for cachexia, abdominal distention, regular rate and rhythm with no murmurs, rubs, gallops, clear lungs bilaterally, and no lower extremity edema
TTE 09/13/2024: LVEF 55-60%, no VHD
ECG 09/11/2024: Sinus tachycardia, HR 109 bpm, RBBB, nonspecific ST�T wave changes
Due to her limited exertional tolerance, I would recommend that patient have stress testing prior to her intra-abdominal surgery. PET stress test is the most appropriate given that she is unable to exercise and cannot lie prone for SPECT imaging.
This can be done outpatient. We will follow-up with her in the office after her stress test is complete for final preoperative risk assessment. We will sign off at this time. Please call with any additional questions or concerns.
Original Note:
Consultation
Consultation Request
Date/Time Consultation Requested: 09/13/2024 08:50
Date/Time Consultation Performed: 09/13/2024 10:00
Requesting Provider: Dr. العراقي
Performing Provider: JULEE Mayberry for Dr. Alanis
Reason for Consultation: Pre-op risk assessment
Medical History
-
Chief Complaint: Abdominal distention
History of Present Illness:
Antoinette Infante is a 63-year-old female with prior left-sided breast cancer with lymph node involvement (status post chemo/XRT with tamoxifen for 5 years), hypothyroidism, HLD, and prior brachial plexus injury presented to the emergency department with
a chief complaint of abdominal distention. She initially presented to her PCP with complaints of abdominal distention, weight loss, early satiety, and night sweats. An outpatient CAT scan was ordered but she was unable to tolerate oral contrast.
CT showed moderate ascites and large heterogeneous mixed cystic and solid lesions suspicious for ovarian malignancy. Yesterday, she had 1 L removed via paracentesis by IR. The plan is for a thoracentesis today along with a CT-guided omental
biopsy. Cardiology was consulted for risk assessment. She will be receiving chemotherapy and surgical debulking. She denies chest pain.
Past Medical History
Past Medical History: Cancer (Breast [left]), Hypercholesterolemia, Hypothyroidism, Psychiatric (Anxiety) and Other (Brachial plexus injury [2012])
Past Surgical History: and Orthopedic
Social History
Tobacco: Non-Smoker
Alcohol: None
Drug: None
Personal:
Living: Alone
Family History
Family History: Reviewed & Not Pertinent
Allergies / Home Medications
Allergy/AdvReac Type Severity Reaction Status Date / Time
Cephalosporins Allergy Unknown Verified 07/09/21 13:10
penicillin G Allergy Unknown Verified 07/09/21 13:10
Penicillins Allergy Unknown Verified 07/09/21 13:10
�Medication �Instructions �Recorded �Confirmed �Type
No Meds [No Current Medications] 09/11/24 09/11/24 History
Review of Systems
-
History Source: Patient
All other systems: Negative unless noted
Constitutional: Weight Loss, Fatigue and Night Sweats
EENT: No Symptoms
Respiratory: No Symptoms
Cardiac: No Symptoms
Abdomen/GI: Anorexia and Other (fullness)
: No Symptoms
Musculoskeletal: No Symptoms
Skin: No Symptoms
Neurological: No Symptoms
Endocrine: No Symptoms
Hematologic/Lymphatic: No Symptoms
Physical Exam
Vital Signs
Temp Pulse Resp BP Pulse Ox
98.4 F 102 14 110/77 95
09/13/24 07:41 09/13/24 07:41 09/13/24 07:41 09/13/24 07:41 09/13/24 07:41
Physical Exam
General: No Apparent Distress and Poor Appetite
HEENT: Normocephalic, Anicteric and Moist Mucous Membranes
Respiratory: Clear and Non Labored Respirations
Cardiac: S1/S2 and Regular Rhythm
Breast: Deferred by me
GI: Distended and Other (firm)
Rectal: Deferred by Provider
Genito-urinary: No Costovertebral Tender
Musculoskeletal: No Clubbing, No Cyanosis and No Edema
Skin: Warm and Dry
Neuro: AO x 3
Hematologic/Lymphatic: No Lymphadenopathy
Psych: Calm
Impression / Plan
-
I/P: 63F with prior left-sided breast cancer with lymph node involvement (status post chemo/XRT with tamoxifen for 5 years), hypothyroidism, and prior brachial plexus injury presented to the emergency department with a chief complaint of abdominal
distention. CT showed moderate ascites and large heterogeneous mixed cystic and solid lesions suspicious for ovarian malignancy.
Outpatient member certification manager: None, will be Dr. Alanis
Cardiac risk
- Denies anginal complaints
- HgbA1c 5.3% as an outpatient
- Echo with strain today
- No FH of CAD
Ascites
- S/p paracentesis 09/12/2024 for 1 L
- Abdomen is firm and distended
Pleural effusion, right
- Thoracentesis today by IR
Tachycardia
- No PE, large pleural effusion to be drained today
- Anemia of chronic disease, no acute blood loss
Pelvic mass, complex masses in both adnexa
- Gynecologic oncology ordered IR biopsy of omentum
- The plan is for port placement and chemotherapy prior to debulking
- Bilateral hydronephrosis without SHIVANI due to large pelvic lesions
Hypercholesterolemia
- LDL as an outpatient greater than 200, update fasting lipid panel in a.m.
- ASCVD risk score to be calculated tomorrow morning with cholesterol panel
Normal thyroid panel
- TSH 6.68 as an outpatient, reflex to T4 in a.m.
RBBB, chronicity unknown, dates back to 2021 EKG
Data Reviewed
-
EKG: Report Reviewed by me (Sinus tachycardia, RBBB, anterior ST abnormality, prolonged QT)
Radiology: Report Reviewed by me
CT Scan: Report Reviewed by me
Medical Tests (Nuc Med, Echo etc): Report Reviewed by me
Labs: Labs Reviewed by me
Old Records: Reviewed
[2024-09-13 10:40] LABS: Hematocrit 31.9 % (37.0-47.0); Hemoglobin 10.2 g/dL (12.0-16.0); Mean Corp Hgb Conc. 32.0 g/dL (33.0-37.0); Mean Corpuscular Volume 82.6 fL (81.0-99.0); Platelet Count 334 10^3/uL (130-400); Red Cell Dist. Width 17.1 % (11.5-14.5)
[2024-09-13] MEDS: VITAMIN B-12 1000 MCG PO (10:45)
[2024-09-13] MEDS: FOLVITE 1 MG PO (10:45)
[2024-09-13 10:57] LABS: ALT (SGPT) < 30 U/L (0-35); AST (SGOT) 37 U/L (14-36); Albumin 2.9 g/dl (3.5-5.0); Alkaline Phosphatase 118 U/L (38-126); Blood Urea Nitrogen 14 mg/dl (7-17); Calcium 8.3 mg/dl (8.4-10.2); Carbon Dioxide 26 mmol/L (22-30); Chloride 105 mmol/L (98-107); Estimated Creatinine Clearance 65 ml/min; Glucose 111 mg/dl (70-99); LDH 219 U/L (120-246); Potassium 3.7 mmol/L (3.5-5.1); Sodium 134 mmol/L (135-145); Total Iron Binding Capacity 169 ug/dl (265-497); Total Protein 5.6 g/dl (6.3-8.2); eGFR > 60.00
[2024-09-13] MEDS: D5/0.45%NACL IV (11:06)
--- NOTE | 2024-09-13 13:53 | W.PN.ONC2 ---
Today's Communication / Plan
-
omental bx
paracentesis
follow tumor markers
OP follow up will be arranged upon discharge
Impression
Impression
2 large mixed cystic and solid masses - likely ovarian cancer, with carcinomatosis. CEA 45.6
ascites s/p paracentesis 09/12 with 1050ml removed and repeated today
pleural effusion
weight loss, poor po intake
h/o breast cancer, 2011, treated w/ chemo, XRT, anti-estrogen therapy
folate deficiency, low normal B12
Plan
Plan
follow for cytology of ascites
plan for omental biopsy today
plan for thora today
CA-125, CA27-29 pending
agree with b12 and folate supplement today
pain management
bowel regimen
Pt ex-/friend at bedside provided updates and questions answered per pt request
Subjective/Objective
Subjective
abdominal discomfort from distention
unable to eat due to early fullness and nausea
Vital Signs:
Vital Signs
Temp Pulse Resp BP Pulse Ox
98.3 F 106 22 123/75 96
09/13/24 13:05 09/13/24 13:05 09/13/24 13:05 09/13/24 13:05 09/13/24 13:05
Lab Results:
Laboratory Data
WBC 5.3 10^3/uL (4.8-10.8) 09/13/24 10:10
Hgb 10.2 g/dL (12.0-16.0) L 09/13/24 10:10
Plt Count 334 10^3/uL (130-400) D 09/13/24 10:10
eGFR > 60.00 09/13/24 10:10
Physical Exam
HEENT: Moist Mucous Membranes; No Jaundice
Pulmonary: Clear
GI: Distended
Extremities: Pulses Present; No Edema
Neuro: Non Focal
[2024-09-13 15:09] LABS: Body Fluid Second Tech CMB
[2024-09-13 15:10] LABS: Body Fluid Second Tech CMB
--- NOTE | 2024-09-13 16:07 | CM ---
Alert awake oriented patient who lives alone in a 2 story home with 2 steps to enter and bed/bathroom can be set up at home. 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
given to dgt and SO.
No VN/SNF hx
Pharmacy [facility]
PCP Dr Lyudmila Greenfield
PLAN Home with VN
[2024-09-13] MEDS: D5/0.45%NACL 1000 IV (16:51)
[2024-09-13 20:37] LABS: CA 125 8830 U/mL (0-35)
[2024-09-13] MEDS: MORPHINE SULFATE 2 MG IV (22:25)
[2024-09-13 22:30] LABS: CA 27-29 1322.2 U/mL (<=39.0)
[2024-09-14] VITALS (7 sets, daily range): BP systolic 97–126; BP diastolic 64–81; BMI 20.4
[2024-09-14 05:50] LABS: Hematocrit 29.6 % (37.0-47.0); Hemoglobin 9.4 g/dL (12.0-16.0); Mean Corp Hgb Conc. 31.8 g/dL (33.0-37.0); Mean Corpuscular Volume 82.7 fL (81.0-99.0); Platelet Count 279 10^3/uL (130-400); Red Cell Dist. Width 16.8 % (11.5-14.5)
[2024-09-14 06:11] LABS: Blood Urea Nitrogen 11 mg/dl (7-17); Calcium 7.7 mg/dl (8.4-10.2); Carbon Dioxide 21 mmol/L (22-30); Chloride 106 mmol/L (98-107); Estimated Creatinine Clearance 76 ml/min; Glucose 91 mg/dl (70-99); HDL Cholesterol 31 mg/dl; LDL Cholesterol, Calculated 117 mg/dl; Potassium 4.1 mmol/L (3.5-5.1); Sodium 132 mmol/L (135-145); Very Low Density Lipoprotein 24 mg/dl (0-30); eGFR > 60.00
[2024-09-14] MEDS: D5/0.45%NACL 1000 IV (06:15)
[2024-09-14] MEDS: DILAUDID 0.5 MG IV (06:21)
[2024-09-14] MEDS: VITAMIN B-12 PO (07:53)
[2024-09-14] MEDS: FOLVITE PO (07:53)
--- NOTE | 2024-09-14 08:03 | CON.GI ---
Addendum entered and electronically signed by Allyson Albarado DO 09/14/24 11:02:
The patient was seen and examined by me independently in collaboration with the nurse practitioner.
Past medical history/social history/medications/allergies/family history reviewed.
Lab data and imaging data reviewed.
Antoinette Infante is a 63 y.o. female w/ pmhx breast cancer s/p surgery, chemo, radiation, anti-estrogen therapy admitted with complaints of worsening abdominal distension, weight loss and night sweats. 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
carcinomatosis. GI consulted for regurgitation of fluids, eructation and change of bowels. Patient admits to early satiety, immediately regurgitates liquids, denies globus or odynophagia. She does feel there is a correlation to timing of when she
noticed her abdominal distension and the regurgitation and eructation started.
A/P:
-suspect GI symptoms 2/2 mass effect of abdominal distension and diaphragmatic irritation
-barium esophagram today if she can tolerate liquid, if not, will proceed with EGD, which she is agreeable to
-trial of liquid carafate
-PPI
-ascitic fluid + SBP, abx held as likely 2/2 malignancy
-ultimately, if unable to get nutrition orally, not many options because she is not a PEG candidate
Original Note:
Consultation
-
Date/Time Consultation Requested: 09/13/24 1650
Date/Time Consultation Performed: 09/14/24 0830
Requesting Provider: Octaviano aPlacio DO
Performing Provider: JULEE Judge, Yeimi Albarado DO
Reason for Consultation: decreased PO intakes
Medical History
Chief Complaint / HPI
Chief Complaint: belching, fullness
History of Present Illness:
Pt is a 63yo with hx breast CA 2010 with prior surgery, chemo, radiation and anti estrogen with onset of abdominal distention, thyroid disease, wt loss, night sweats. Since admission she is noted with drop in hbg to 9.4, Na 132. She has completed
multiple diagnostic imaging since admission with concern for metastatic process with adnexal lesions, hepatic lesions, possible osseous lesions, mild b/l hydro omental caking, with nodules and mesenteric implants, with ascites and pleural effusion
and small to moderate HH. She has completed 2 para 09/13 with increased WBC's and 1 thora with omental bx completed. She has been seen by AUTO REPAIR TECHNICIAN oncology and asked to see for nutrition. In review with patient she admits to increased fullness,
belching with eating and decreased intakes. She did take slight more intake after pleural effusion tapped 09/13 but feels like fluid is just coming back today. She also admits to feeling of fullness with eating with regurgitation of mucous with
intakes. she admits to both diarrhea and constipation She denies dysphagia, or rectal bleeding.
Past Medical History
Past Medical History: Cancer (breast CA 2010 with prior surgery, chemo, radiation and anti estrogen), Hypothyroidism and Other (brachial plexus injury, compression/nerve surgery, wt loss)
Social History
Tobacco: Non-Smoker
Alcohol: Other (social in past )
Drug: Other (distant hx marijuana use )
Personal:
Living: Other (lives on Ex property )
Employment: Retired
Family History
Family History: Reviewed & Not Pertinent
Allergies / Home Medications
Allergy/AdvReac Type Severity Reaction Status Date / Time
Cephalosporins Allergy Unknown Verified 07/09/21 13:10
penicillin G Allergy Unknown Verified 07/09/21 13:10
Penicillins Allergy Unknown Verified 07/09/21 13:10
�Medication �Instructions �Recorded
No Meds [No Current Medications] 09/11/24
Review of Systems
-
History Source: Patient
Constitutional: Reports Other (loss of muscle mass but wt gain with fluid )
EENT: Reports No Symptoms
Respiratory: Reports Trouble Breathing
Cardiac: Reports No Symptoms
Abdomen/GI: Reports Abdominal Pain (with distention), Nausea, Diarrhea, Constipated and Anorexia
: Reports No Symptoms
Musculoskeletal: Reports No Symptoms
Skin: Reports No Symptoms
Neurological: Reports Other (anxiety with current issues )
Endocrine: Reports No Symptoms
Hematologic/Lymphatic: Reports No Symptoms
Vital Signs
Temp Pulse Resp BP Pulse Ox
97.9 F 98 17 103/68 96
09/14/24 07:20 09/14/24 07:20 09/14/24 07:20 09/14/24 07:20 09/14/24 07:20
Physical Exam
Exam
General: Other (thin appearing and plan with abd distention)
HEENT: Normocephalic and Anicteric
Respiratory: Clear
Cardiac: Regular Rhythm
GI: Soft, Tender (minimal ) and Distended
Musculoskeletal: No Clubbing and No Cyanosis
Skin: Warm and Dry
Neuro: Awake, Alert and AO x 3
Psych: Calm
Results
WBC 4.8 10^3/uL (4.8-10.8) 09/14/24 05:15
Hgb 9.4 g/dL (12.0-16.0) L 09/14/24 05:15
Hct 29.6 % (37.0-47.0) L 09/14/24 05:15
MCV 82.7 fL (81.0-99.0) 09/14/24 05:15
Plt Count 279 10^3/uL (130-400) 09/14/24 05:15
Absolute Neuts (auto) 8.7 10^3/uL (1.4-6.5) H 09/11/24 09:08
Sodium 132 mmol/L (135-145) L 09/14/24 05:15
Potassium 4.1 mmol/L (3.5-5.1) 09/14/24 05:15
Chloride 106 mmol/L (98-107) 09/14/24 05:15
Carbon Dioxide 21 mmol/L (22-30) L 09/14/24 05:15
BUN 11 mg/dl (7-17) 09/14/24 05:15
Creatinine 0.6 mg/dL (0.6-1.0) 09/14/24 05:15
Calcium 7.7 mg/dl (8.4-10.2) L 09/14/24 05:15
Total Bilirubin 0.3 mg/dl (0.2-1.3) 09/13/24 10:10
AST 37 U/L (14-36) H 09/13/24 10:10
ALT < 30 U/L (0-35) 09/13/24 10:10
Alkaline Phosphatase 118 U/L (38-126) 09/13/24 10:10
Diagnostic Image Results:
09/11/24 CT Abd/Pel (IV only)-[facility] only
There are large heterogeneous, mixed cystic and solid lesions within the adnexa which extend into the mid abdomen and are highly concerning for ovarian malignancy. The larger lesion on the right measures up to 18.7 cm. There is associated omental
caking, peritoneal thickening and enhancement which likely represent metastatic disease. There are numerous small nodules within the mesentery suspicious for mesenteric implants. There is associated moderate ascites and a moderate right pleural
effusion.
Hypodensities within the right hepatic lobe measuring up to 5 mm, concerning for metastasis in the setting of malignancy.
There is heterogeneous appearance of the lumbar spine and pelvis may be secondary to osteopenia although underlying osseous metastasis cannot be excluded.
There is mild bilateral hydronephrosis, more pronounced on the left, likely secondary to the large pelvic lesions.
Small/moderate hiatal hernia containing ascites.
Recommend gynecologic oncology referral.
para 09/12 1050ml , 09/13 900ml
thora 09/13 Successful ultrasound-guided thoracentesis, yielding 700 cc of clear yellow pleural fluid.
09/13 omental bx pending
09/12/24 US pelvis --
IMPRESSION: Ultrasound, there appear to be 2 large mixed cystic and solid masses, corresponding to mass or masses seen on recent CT. These very likely represent ovarian/adnexal malignancy.
Normal appearance of the uterus. No abnormality of the endometrium.
Ovaries are not visualized separately.
Prior GI Procedures:
EGD: [facility] 06/2021 - Esophageal mucosal changes suspicious for
eosinophilic esophagitis. Biopsied.
- Z-line irregular, at the gastroesophageal junction.
Biopsied.
- Erosive gastropathy with no bleeding and no stigmata
of recent bleeding. Biopsied.
- Normal examined duodenum. Biopsied.
bx neg
Colonoscopy: 06/2021 [facility]- - Diverticulosis in the sigmoid colon.
- The examined portion of the ileum was normal.
Biopsied.
- Biopsies were taken with a cold forceps from the
entire colon for evaluation of microscopic colitis.
bx neg IBD
Assessment / Plan
-
Pt is a 63yo with hx breast CA 2010 with prior surgery, chemo, radiation and anti estrogen with onset of abdominal distention, thyroid disease, wt loss, night sweats. Since admission she is noted with drop in hbg to 9.4, Na 132. She has completed
multiple diagnostic imaging since admission with concern for metastatic process with adnexal lesions, hepatic lesions, possible osseous lesions, mild b/l hydro omental caking, with nodules and mesenteric implants, with ascites and pleural effusion
and small to moderate HH. She has completed 2 para 09/13 with increased WBC's and 1 thora with omental bx completed. She has been seen by AUTO REPAIR TECHNICIAN oncology and asked to see for nutrition. In review with patient she admits to increased fullness,
belching with eating and decreased intakes. She did take slight more intake after pleural effusion tapped 09/13 but feels like fluid is just coming back today. She also admits to feeling of fullness with eating with regurgitation of mucous with
intakes. she admits to both diarrhea and constipation She denies dysphagia, or rectal bleeding.
-decreased oral intakes with bloating, belching
-2 large mixed cystic and solid masses - likely ovarian cancer, with carcinomatosis
-ascites s/p paracentesis 09/12 and 09/13 with increased WBC's
-pleural effusion s/p tap
weight loss, poor po intake
h/o breast cancer with prior treated chemo, XRT, anti-estrogen therapy
anemia
folate deficiency
hyponatremia
PLAN:etiology of decreased appetite with bloating and belching related to maligant process
slight improved symptoms after thoracentesis 09/13 but still symptoms today as feeling like fluid just returning
for attempt at esophagram today if pt able to tolerate
if unable to do consider EGD
awaiting biopsy
reviewed with patient best nutrition is oral-- she is not a candidate for peg with ascites
encourage to take ensure as may tolerate better than solid foods
reviewed with Dr. Ellington with increased WBC's in ascites fluid likely secondary to malignant process abx held for now
replete folate, trend hbg with anemia
add TSH with hx hypothyroidism in past
support given
-
-
Thank you for consultation and allowing me to participate in the patient's care. Please call the manager infusion GI physician during the after hours with any questions or concerns.
--- NOTE | 2024-09-14 10:11 | W.PN.GYNONC ---
Today's Communication
-
GI imaging and progress GI consultation requested
Cytology pending from ascites as well as pleural effusion
Impression / Plan
-
63-year-old woman presenting with pelvic mass abdominal ascites carcinomatosis and right pleural effusion. She has evidence of tachycardia, abnormal weight loss, and her labs are significant for anemia, thrombocytosis. I spoke at length with
patient and her ex- yesterday evening about ongoing investigations as well as potential plans for Neoadjuvant chemo if diagnosis of ovarian or mullerian tract malignancy is confirmed. She is not a good candidate for upfront surgery due to low
albumin 3.1, large pleural effusion and significant weight loss.
1. Pelvic mass:
- US confirms complex masses in both adnexa, uterus is normal, ascites seen
- 1L malignant ascites removed, cytology pending, pathology is contacted hoping to have results today
- CA125 pending
- IR biopsy of the omentum was completed yesterday
- Port placement is deferred to outpatient tentatively scheduled for this week
2. Pleural effusion
- IR was able to perform right sided thoracentesis, 700 cc was drained. Patient does feel much improved with less sensation of dyspnea
3. Tachycardia
-CT chest shows large pleural effusion, no PE, US LE shows no DVT
- Echocardiogram is completed, ejection fraction is preserved and there is no significant wall motion abnormalities
- Due to presence of an abnormal ECG cardiology consultation was obtained for new right bundle branch block, they recommend outpatient PET imaging as the best way to substitute for a stress test.
4. Anemia
- Both Folate and B12 are low, supplementation have been added
5. History of complex urologic surgery
When Interval debulking surgical plan is made for this patient we need to involve urology and consider stent placement because of reconstruction as well as mobilization of ureter previously. Consider outpatient CT urogram
6. While hospitalized it is pretty obvious that the patient's oral intake is rather limited and minimal. She reports that she gets full very fast. It is unclear as to whether she has any partial bowel obstruction or swallowing difficulties. I
discussed this with the hospitalist and decision has been made to perform a small bowel follow-through. Formal GI consultation is also placed. My suspicion is that she has significant GI involvement with malignancy contributing to poor peristalsis.
Mickey العراقي MD
Gynecologic Oncology
[facility]

Subjective / Interval History
-
Patient reports poor sleep overnight, she was able to tolerate some solid food for dinner including mac & cheese, she is n.p.o. this morning for a GI study. She did not have a bowel movement but does report flatus. She continues to feel discomfort
in the abdomen secondary to mass and malignancy.
Objective Data
-
Lab Results:
09/14/24 05:15
09/14/24 05:15
Physical Exam
Vital Signs / I&O
Vitals
Temp Pulse Resp BP Pulse Ox
97.9 F 98 17 103/68 96
09/14/24 07:20 09/14/24 07:20 09/14/24 07:20 09/14/24 07:20 09/14/24 09:31
I&O
09/12/24 09/13/24 09/14/24 09/15/24
06:59 06:59 06:59 06:59
Intake Total 900 / 900 1440 / 1440 480 / 480
Balance 900 / 900 1440 / 1440 480 / 480
Physical Exam
General: No Apparent Distress
HEENT: Other (Cachectic appearance)
Respiratory: Non Labored Respirations
Cardiac: Regular Rhythm and Tachycardia
GI: Distended and Other (Palpable solid mass right lower quadrant, some fluid wave is present)
Musculoskeletal: Edema (Right lower extremity with generalized edema more than left lower extremity, there is no calf pain)
Skin: Warm
Neuro: Awake, Alert and Oriented
Psych: Anxious
--- NOTE | 2024-09-14 11:33 | W.PN.HOSP.TC ---
Today's Communication/Plan
-
see plan
Assessment / Plan
Assessment / Plan
63 F with past medical history of breast CA in remission with tx in 2010 now presenting for 2 months of abdominal distention, weight loss, intolerance and night sweats. Imaging concerning for adnexal mass with metastatic disease.
Gen: continues to remain NAD, AAOx3, appears chronically ill.
Eyes: EOMI, PERRLA, no scleral icterus.
Neck: supple.
CV: RRR, +S1/S2, no m/r/g.
Resp: CTAB anteriorly, no rales, wheezes, or rhonchi.
Abd: +BS, soft, NT, moderate distention with ascites, palpable lower abdominal mass, R>L abdominal TTP
Skin: No rashes. 2+ RLE edema
Neuro: CN 2-12 intact, non-focal.
Psych: Normal mood and affect.
CT A/P: There are large heterogeneous, mixed cystic and solid lesions within the adnexa which extend into the mid abdomen and are highly concerning for ovarian malignancy. The larger lesion on the right measures up to 18.7 cm. There is associated
omental caking, peritoneal thickening and enhancement which likely represent metastatic disease. There are numerous small nodules within the mesentery suspicious for mesenteric implants. There is associated moderate ascites and a moderate right
pleural effusion. Hypodensities within the right hepatic lobe measuring up to 5 mm, concerning for metastasis in the setting of malignancy. There is heterogeneous appearance of the lumbar spine and pelvis may be secondary to osteopenia although
underlying osseous metastasis cannot be excluded. There is mild bilateral hydronephrosis, more pronounced on the left, likely secondary to the large pelvic lesions. Small/moderate hiatal hernia containing ascites.
Abdominal distention:
-CT A/P above with findings concerning for solid lesion (possibly ovarian malignancy) with evidence of likely metastatic disease (omental caking, peritoneal thickening, numerous small nodules in the mesentery)
-s/p Dx/Tx paracentesis for 1L 09/12/24, follow cytology
-ONC and [facility] following (discussed with Dr. العراقي over the phone)
-pain control, antiemetics
-regular diet as tolerated
-cont IVFs (decrease rate to 50cc/hr)
-transaminitis likely due to abdominal process
-mild bilateral hydronephrosis (without SHIVANI) likely due to large pelvic lesions
-CEA 45.6
-check CA-125, CA27-29
-s/p Bx of omentum mass 09/13/24, follow path
-with difficulty eating (due to nausea) esophagram is pending. I suspect her nausea and anorexia is related to her (likely) underlying malignancy, specifically mass effects.
-if pt cannot tolerate esophagram then will proceed to EGD
-note, pt is not a PEG candidate
-regarding pain control, patient reports that IV narcotics are not helping with her pain. After lengthy discussion the patient will try oral analgesics. Will order OxyContin 10 mg twice daily.
R pleural effusion:
-s/p R thoracentesis 09/13/24 for 700c clear yellow fluid
-follow cytology
RLE edema:
-check RLE U/S
Anemia:
-multifactorial and due to anemia of chronic disease and Fe deficiency anemia
-drop in Hb likely dilutional
-ferritin adequate, no IV Fe as per Heme
Other problems:
Small/moderate hiatal hernia containing ascites
Hyperkalemia, resolved
Folate deficiency: PO folate
Hyponatremia, mild, likely SIADH due to malignancy
FULL/heparin
Interdisciplinary discussion initiated with GI, Onc, and [facility] via [employer] as follows:
Team:
Situation is 'challenging.' I just saw the pt. She has some food yesterday. Clearly there is no esophageal or gastric mechanical obstruction. Agree that her anorexia and nausea is related to her abd masses/malignancy.
Pain control: After a long discussion pt will try oral narcs. She was very indecisive but I sort of made the decision for her....
RLE swollen, checking U/S for DVT.
Look, I'm very direct. Shouldn't we be having conversations about goals of care all things considered? He clinical status is poor, she has a SEVERE burden of pathology, and, frankly, is indecisive about even the smallest decisions. I don't ever see
her eating enough to have an albumin that will allow debulking. I'm just wondering if we are doing what is best for this particular patient.
Total time spent on today's encounter was 60 minutes which included time spent in counseling the patient/family regarding diagnosis and treatment plan as listed above, goals of care, and symptom management. Case was discussed with nursing staff,
specialists, and care coordinators/case management. All labs and imaging personally reviewed by me. Remainder the time spent in detailed review of previous records, lab data, imaging, and other medical provider documentation.
Anticipated Discharge: 24 - 48 hours
Subjective/Interval History
-
Date of Service: September 14, 2024
Patient complains of severe right-sided abdominal pain.
Objective Data
-
Labs:
Laboratory Results
09/14/24
05:15
WBC 4.8
Hgb 9.4 L
Hct 29.6 L
Plt Count 279
Sodium 132 L
Potassium 4.1
Chloride 106
Carbon Dioxide 21 L
BUN 11
Creatinine 0.6
Glucose 91
Calcium 7.7 L
Vital Signs:
Vital Signs
Temp Pulse Resp BP Pulse Ox
97.6 F 112 16 115/79 95
09/14/24 11:13 09/14/24 11:13 09/14/24 11:13 09/14/24 11:13 09/14/24 11:13
I&O
09/13/24 09/14/24 09/15/24
06:59 06:59 06:59
Intake Total 1440 / 1440 480 / 480
Balance 1440 / 1440 480 / 480
--- NOTE | 2024-09-14 12:27 | VNURNOTE ---
Home Health Liaison met with patient at bedside to discuss [facility] nurse/therapy, visits, schedule and homebound status. Patient is agreeable and understands that visits at home will be 2-3 x per week to assess and teach medical management.
Patient is aware that [facility] will contact them for start of care in 1-2 days after discharge from .
[facility] referral completed in [facility].
[2024-09-14] MEDS: OXYCONTIN (CONTROLLED RELEASE) 10 MG PO ×2 (12:51→20:04)
[2024-09-14] MEDS: LOVENOX 50 MG SC (15:13)
--- NOTE | 2024-09-14 15:54 | W.PN.UPDATE ---
Update Note
Progress Note Update
Reviewed UGI-- evidence of severe reflux and likely esophagitis. After discussing with apparel pattern maker onc, onc and hospitalist, due to complexity of her case and focus of her treatment, will hold off on additional GI workup or EGD at this time.
Recommend giving PPI PO BID and liquids carafate QID w/ meals.
Needs bowel regimen.
GI will sign off, please call with quesitons.
[2024-09-14] MEDS: CARAFATE SUSPENSION 1 GM PO ×2 (16:31→21:14)
[2024-09-14] MEDS: PROTONIX 40 MG PO (20:04)
[2024-09-14] MEDS: SENOKOT-S 1 TABLET PO (20:05)
[2024-09-15] VITALS (7 sets, daily range): BP systolic 94–119; BP diastolic 52–79; PULSE 107–114; O2SAT 96–97; BMI 20.7
[2024-09-15] MEDS: LOVENOX 50 MG SC (01:26)
[2024-09-15] MEDS: D5/0.45%NACL 1000 IV (01:26)
[2024-09-15] MEDS: ATIVAN 0.5 MG PO (01:57)
[2024-09-15 05:43] LABS: Hematocrit 31.5 % (37.0-47.0); Hemoglobin 10.3 g/dL (12.0-16.0); Mean Corp Hgb Conc. 32.7 g/dL (33.0-37.0); Mean Corpuscular Volume 81.6 fL (81.0-99.0); Platelet Count 298 10^3/uL (130-400); Red Cell Dist. Width 16.7 % (11.5-14.5)
[2024-09-15 06:09] LABS: Blood Urea Nitrogen 15 mg/dl (7-17); Calcium 8.2 mg/dl (8.4-10.2); Carbon Dioxide 21 mmol/L (22-30); Chloride 106 mmol/L (98-107); Estimated Creatinine Clearance 65 ml/min; Glucose 104 mg/dl (70-99); Potassium 4.2 mmol/L (3.5-5.1); Sodium 131 mmol/L (135-145); eGFR > 60.00
[2024-09-15] MEDS: OXYCONTIN (CONTROLLED RELEASE) 10 MG PO (08:00)
[2024-09-15] MEDS: CARAFATE SUSPENSION 1 GM PO ×2 (08:01→11:36)
[2024-09-15] MEDS: VITAMIN B-12 1000 MCG PO (08:01)
[2024-09-15] MEDS: FOLVITE 1 MG PO (08:01)
[2024-09-15] MEDS: SENOKOT-S 1 TABLET PO (08:01)
[2024-09-15] MEDS: MIRALAX 17 GRAMS PO (08:01)
[2024-09-15] MEDS: PROTONIX 40 MG PO (08:01)
--- NOTE | 2024-09-15 08:22 | W.PN.HOSP.TC ---
Addendum entered and electronically signed by Octaviano Palacio MD 09/15/24 10:41:
Plan is for d/c home on [facility] with PORT placement tomorrow. I have confirmed with interventional radiology the patient can be on therapeutic anticoagulation for port placement.
Total time spent on d/c = 60 min. This included today's physical exam, progress note, review of laboratory and diagnostic data, preparation of discharge documents and prescriptions, and discussions about the pt's hospital course and discharge plan
with the patient and other medical logistics specialist involved in the patient's care.
Original Note:
Today's Communication/Plan
-
see plan
Assessment / Plan
Assessment / Plan
63 F with past medical history of breast CA in remission with tx in 2010 now presenting for 2 months of abdominal distention, weight loss, intolerance and night sweats. Imaging concerning for adnexal mass with metastatic disease.
Gen: NAD, AAOx3, appears chronically ill.
Eyes: EOMI, PERRLA, no scleral icterus.
Neck: supple.
CV: remains RRR, +S1/S2, no m/r/g.
Resp: remains CTAB anteriorly, no rales, wheezes, or rhonchi.
Abd: remains +BS, soft, NT, moderate distention with ascites, palpable lower abdominal mass, R>L abdominal TTP
Skin: No rashes. 2+ RLE edema
Neuro: CN 2-12 intact, non-focal.
Psych: Normal mood and affect.
CT A/P: There are large heterogeneous, mixed cystic and solid lesions within the adnexa which extend into the mid abdomen and are highly concerning for ovarian malignancy. The larger lesion on the right measures up to 18.7 cm. There is associated
omental caking, peritoneal thickening and enhancement which likely represent metastatic disease. There are numerous small nodules within the mesentery suspicious for mesenteric implants. There is associated moderate ascites and a moderate right
pleural effusion. Hypodensities within the right hepatic lobe measuring up to 5 mm, concerning for metastasis in the setting of malignancy. There is heterogeneous appearance of the lumbar spine and pelvis may be secondary to osteopenia although
underlying osseous metastasis cannot be excluded. There is mild bilateral hydronephrosis, more pronounced on the left, likely secondary to the large pelvic lesions. Small/moderate hiatal hernia containing ascites.
Esophagram 09/14/24: Limited/modified examination, as described. Small to moderate hiatal hernia. Severe gastroesophageal reflux without stricture or obstruction. Findings suggest possibility of mild esophagitis at the gastroesophageal junction.
Metastatic high-grade serous carcinoma:
-presented with abdominal distention:
-CT A/P above with findings concerning for solid lesion (possibly ovarian malignancy) with evidence of likely metastatic disease (omental caking, peritoneal thickening, numerous small nodules in the mesentery)
-s/p Dx/Tx paracentesis for 1L 09/12/24, follow cytology
-[facility] and [employer] following (discussed with Dr. العراقي over the phone)
-pain control, antiemetics
-regular diet as tolerated
-cont IVFs (decrease rate to 50cc/hr)
-transaminitis likely due to abdominal process
-mild bilateral hydronephrosis (without SHIVANI) likely due to large pelvic lesions
-CEA 45.6
-CA-125, CA27-29 pending
-s/p Bx of omentum mass 09/13/24 with path metastatic high-grade serous carcinoma
-with difficulty eating (due to nausea) esophagram completed and without obstruction. I suspect her nausea and anorexia is related to her (likely) underlying malignancy, specifically mass effects, as well as GERD and esophagitis.
-cont PPI
-note, pt is not a PEG candidate as per GI
-regarding pain control, patient reported that IV narcotics were not helping with her pain. After lengthy discussion the patient OxyContin 10 mg twice daily was started .
-cont ativan PNR for anxiety
R pleural effusion:
-s/p R thoracentesis 09/13/24 for 700c clear yellow fluid
-follow cytology
RLE DVT:
-currently on Lovenox
Anemia:
-multifactorial and due to anemia of chronic disease and Fe deficiency anemia
-drop in Hb likely dilutional
-ferritin adequate, no IV Fe as per Heme
Other problems:
Small/moderate hiatal hernia containing ascites
Hyperkalemia, resolved
Folate deficiency: PO folate
Hyponatremia, mild, likely SIADH due to malignancy
FULL/Lovenox
Total time spent on today's encounter was 50 minutes which included time spent in counseling the patient/family regarding diagnosis and treatment plan as listed above, goals of care, and symptom management. Case was discussed with nursing staff,
specialists, and care coordinators/case management. All labs and imaging personally reviewed by me. Remainder the time spent in detailed review of previous records, lab data, imaging, and other medical provider documentation.
Anticipated Discharge: Within 24 hours
Subjective/Interval History
-
Date of Service: September 15, 2024
Pt is tolerating food this AM. States abdominal pain has improved with Oxycontin. States anxiety overnight for which Ativan helped.
Objective Data
-
Labs:
Laboratory Results
09/15/24
05:08
WBC 7.3
Hgb 10.3 L
Hct 31.5 L
Plt Count 298
Sodium 131 L
Potassium 4.2
Chloride 106
Carbon Dioxide 21 L
BUN 15
Creatinine 0.7
Glucose 104 H
Calcium 8.2 L
Vital Signs:
Vital Signs
Temp Pulse Resp BP Pulse Ox
98.3 F 115 18 113/75 95
09/15/24 07:32 09/15/24 07:32 09/15/24 07:32 09/15/24 07:32 09/15/24 07:32
I&O
09/14/24 09/15/24 09/16/24
06:59 06:59 06:59
Intake Total 480 / 480 190 / 190
Balance 480 / 480 190 / 190
--- NOTE | 2024-09-15 12:23 | CM ---
MD entered order for discharge.
[facility] called they did not have started pack for Eliquis . [facility] requested MD write for Eliquis and they would filled appropriate quality.
Eliquis coupon to be given
Spoke with ex [employer] he will drive her home.
VN is set up by liaison .
IMM reviewed signed on chart.
PLAN Home with VN
--- NOTE | 2024-09-15 14:34 | W.DCSUMMARY ---
Discharge Summary
Discharge Data
Date of Admission: 09/11/24
Date of Discharge: 09/15/24
-
Pending Results: Yes
Additional Pending Results:
Right pleural fluid cytology
Hospital Course
Primary diagnoses:
Metastatic high-grade serous carcinoma
Esophagitis
Gastroesophageal reflux disease
Malignant ascites
Right pleural effusion (presumed malignant)
Right lower extremity deep vein thrombosis
Secondary diagnoses:
Anemia of chronic disease
Transaminitis likely due to
Small/moderate hiatal hernia containing ascites
Hyperkalemia
Folate deficiency
Hyponatremia, mild, likely SIADH due to malignancy
Consultants:
Gynecology�oncology
Interventional radiology
Cardiology
Gastroenterology
Imaging:
CT A/P: There are large heterogeneous, mixed cystic and solid lesions within the adnexa which extend into the mid abdomen and are highly concerning for ovarian malignancy. The larger lesion on the right measures up to 18.7 cm. There is associated
omental caking, peritoneal thickening and enhancement which likely represent metastatic disease. There are numerous small nodules within the mesentery suspicious for mesenteric implants. There is associated moderate ascites and a moderate right
pleural effusion. Hypodensities within the right hepatic lobe measuring up to 5 mm, concerning for metastasis in the setting of malignancy. There is heterogeneous appearance of the lumbar spine and pelvis may be secondary to osteopenia although
underlying osseous metastasis cannot be excluded. There is mild bilateral hydronephrosis, more pronounced on the left, likely secondary to the large pelvic lesions. Small/moderate hiatal hernia containing ascites.
RLE U/S: Extensive deep venous thrombosis of the right lower extremity.
Esophagram 09/14/24: Limited/modified examination, as described. Small to moderate hiatal hernia. Severe gastroesophageal reflux without stricture or obstruction. Findings suggest possibility of mild esophagitis at the gastroesophageal junction.
63-year-old female presented with chief complaints of abdominal distention, weight loss, and night sweats over the last 2 months as outlined in the H&P done on admission. Hospital course by problem list:
Metastatic high-grade serous carcinoma: CT A/P above with findings concerning for solid lesion (possibly ovarian malignancy) with evidence of likely metastatic disease (omental caking, peritoneal thickening, numerous small nodules in the mesentery).
The patient underwent Dx/Tx paracentesis for 1L 09/12/24 followed by Bx of omentum mass 09/13/24 with path metastatic high-grade serous carcinoma. CEA 45.6, CA-125 8830, CA27-29 1322. The patient's transaminitis and mild bilateral hydronephrosis were
likely due to metastatic high-grade serous carcinoma. Patient was supported with IV fluids as she was having nausea and difficulty eating. She had an esophagram completed which was without obstruction but did show GERD and esophagitis. I suspect
her nausea and anorexia were related to her underlying malignancy, specifically mass effects, as well as GERD and esophagitis. She was placed on PPI twice daily. Of note, as per GI, the patient was not a PEG candidate. Patient was placed on
OxyContin for pain control at the time of discharge was given a short supply of OxyContin and breakthrough oxycodone. She was also given a short supply of Ativan for anxiety.
R pleural effusion: s/p R thoracentesis 09/13/24 for 700c clear yellow fluid. Cytology was pending at the time of discharge.
RLE DVT: The patient was discharged on Eliquis.
Discharge Plan
-
Patient Disposition: Home with Home Care
Discharge Diagnosis/Procedures: Metastatic high-grade serous carcinoma, esophagitis, gastroesophageal reflux disease, malignant ascites, right pleural effusion (presumed malignant), right lower extremity deep vein thrombosis
Condition: Fair
Diet: Regular
Activity: As tolerated
Driving Restrictions: Not until seen by your Dr
Blood Work: CMP and CBC in 1 week, prescription from PCP
Referrals:
Lyudmila Greenfield CRNP [Family Provider, Internal Medicine] - in less than 1 week
Tavares Brown MD [Active, Cardiology] - 10/15/24 1:00 pm
Referral Note: [facility]
Prescriptions:
New
sucralfate 100 mg/mL Suspension
1 g PO ACHS Qty: 1000 0RF
lorazepam 0.5 mg Tablet
0.5 mg PO Q4HPRN PRN (Reason: anxiety) Qty: 7 0RF
polyethylene glycol 3350 17 gram Powder In Packet
17 g PO DAILY Qty: 0 0RF
folic acid 1 mg Tablet
1 mg PO DAILY Qty: 0 0RF
oxycodone [OxyContin] 10 mg Tablet,Oral Only,Ext.Rel.12 Hr
10 mg PO Q12 Qty: 8 0RF
sennosides-docusate sodium 8.6-50 mg Tablet
1 tab PO BID Qty: 0 0RF
cyanocobalamin (vitamin B-12) [Vitamin B-12] 1,000 mcg Tablet
1,000 mcg PO DAILY Qty: 0 0RF
pantoprazole 40 mg Tablet,Delayed Release (Dr/Ec)
40 mg PO BID Qty: 60 0RF
ondansetron HCl 4 mg tablet
4 mg PO Q6H PRN (Reason: nausea and vomiting) Qty: 30 0RF
oxycodone 5 mg capsule
5 mg PO Q6H PRN (Reason: Pain) Qty: 7 0RF
Eliquis 5 mg tablet
5 mg PO BID Qty: 74 0RF
Rx Instructions:
10mg BID x 7 days then 5mg BID thereafter
Discharge Orders:
Discharge Patient (As Directed); Ordered 09/15/24
Ordered By: Octaviano Palacio
Discharge Date and Time
Discharge Date/Time: 09/15/24 14:17
Print Language: [place]ESE
== END 2024-09-15 14:17 | disposition home health service (06) | DRG 755 ==
LOC: 3 WEST ACU 13:42
PROVIDERS: Nurse Practitioner Gerontology; Physician Assistant; Radiology Diagnostic Radiology; Radiology Vascular & Interventional Radiology; ADMITTING PHYSICIAN Internal Medicine; ATTENDING PHYSICIAN Internal Medicine; CONSULT PHYSICIAN Internal Medicine; CONSULT PHYSICIAN Internal Medicine Hematology & Oncology; CONSULT PHYSICIAN Obstetrics & Gynecology Gynecologic Oncology; CONSULT PHYSICIAN Student in an Organized Health Care Education/Training Program; EMERGENCY PHYSICIAN Student in an Organized Health Care Education/Training Program; FAMILY PHYSICIAN Nurse Practitioner Family
PROC: 0W9G3ZZ Drainage of Peritoneal Cavity, Percutaneous Approach (ICD-10-PCS; 2024-09-12)
PROC: 0DBU3ZX Excision of Omentum, Percutaneous Approach, Diagnostic (ICD-10-PCS; 2024-09-13)
PROC: 0W9G3ZX Drainage of Peritoneal Cavity, Percutaneous Approach, Diagnostic (ICD-10-PCS; 2024-09-13)
PROC: 0W9930Z Drainage of Right Pleural Cavity with Drainage Device, Percutaneous Approach (ICD-10-PCS; 2024-09-13)
DX: C56.9 Malignant neoplasm of unspecified ovary (principal); C78.6 Secondary malignant neoplasm of retroperitoneum and peritoneum; R18.0 Malignant ascites; J91.0 Malignant pleural effusion; N13.30 Unspecified hydronephrosis; J98.11 Atelectasis; E44.0 Moderate protein-calorie malnutrition; E22.2 Syndrome of inappropriate secretion of antidiuretic hormone; I82.411 Acute embolism and thrombosis of right femoral vein; I82.431 Acute embolism and thrombosis of right popliteal vein; I82.451 Acute embolism and thrombosis of right peroneal vein; I82.441 Acute embolism and thrombosis of right tibial vein; I82.491 Acute embolism and thrombosis of other specified deep vein of right lower extremity; D63.8 Anemia in other chronic diseases classified elsewhere; E78.00 Pure hypercholesterolemia, unspecified; I45.10 Unspecified right bundle-branch block; D75.839 Thrombocytosis, unspecified; K76.0 Fatty (change of) liver, not elsewhere classified; R63.4 Abnormal weight loss; E03.9 Hypothyroidism, unspecified; M71.22 Synovial cyst of popliteal space [Baker], left knee; M71.21 Synovial cyst of popliteal space [Baker], right knee; E87.5 Hyperkalemia; E53.8 Deficiency of other specified B group vitamins; K21.00 Gastro-esophageal reflux disease with esophagitis, without bleeding; K44.9 Diaphragmatic hernia without obstruction or gangrene; F41.9 Anxiety disorder, unspecified; Z60.2 Problems related to living alone; Z85.3 Personal history of malignant neoplasm of breast; Z88.0 Allergy status to penicillin; Z88.1 Allergy status to other antibiotic agents; Z92.21 Personal history of antineoplastic chemotherapy; Z79.890 Hormone replacement therapy; Z80.0 Family history of malignant neoplasm of digestive organs; Z92.3 Personal history of irradiation; Z87.442 Personal history of urinary calculi; Z68.20 Body mass index [BMI] 20.0-20.9, adult
CPT/HCPCS: 32555; 49083; 49180; 71045; 71275; 74177; 74221; 76856; 76942; 80048; 80053; 80061; 82042; 82150; 82378; 82607; 82728; 82746; 82945; 83540; 83550; 83615; 83735; 83986; 84157; 84439; 84443; 85025; 85027; 86300; 86304; 86850; 86900; 86901; 87015; 87070; 87102; 87116; 87205; 87206; 88112; 88305; 88333; 88341; 88342; 88360; 89051; 93005; 93306; 93970; 93971; 96360; 97162; 97166; 99152; 99153; 99285; J2916; Q9967

== ENCOUNTER → 2024-09-16 08:13 | Outpatient (REF) | payer MEDICARE, OTHER, SELFPAY ==
[2024-09-16 09:05] VITALS: BP 104/80; BP_SYST 110
[2024-09-16] MEDS: VANCOCIN 200 IV (09:26)
[2024-09-16 10:25] VITALS: BP 99/64; BP_SYST 103
[2024-09-16 10:30] VITALS: BP 99/64
[2024-09-16 11:02] VITALS: BP 103/67
== END ==
LOC: RADI 08:13
PROVIDERS: ATTENDING PHYSICIAN Obstetrics & Gynecology Gynecologic Oncology; FAMILY PHYSICIAN Nurse Practitioner Family
DX: C56.9 Malignant neoplasm of unspecified ovary (principal)
CPT/HCPCS: 36561; 76937; 77001; 99152; 99153; C1788

== ENCOUNTER → 2024-09-17 08:08 | Outpatient (REF) | payer MEDICARE, OTHER, SELFPAY ==
[2024-09-17 08:20] VITALS: BP 101/56; BP_SYST 106
[2024-09-17 09:00] VITALS: BP 90/57; BP_SYST 102
[2024-09-17 09:35] VITALS: BP 94/60; BP_SYST 104
[2024-09-17 09:47] VITALS: BP 94/60
[2024-09-17 11:14] LABS: Body Fluid Second Tech EM
--- NOTE | 2024-09-17 13:15 | PTCARENOTE ---
Patient on arrival requested site check of Port site. Placed yesterday, dressing dry and intact. Sts it is 'sore'. Dressing removed. Port site dry with minimal bruising, no s/s of infection. Patient reassured and new dressing applied to site.
== END ==
LOC: RADI 08:08
PROVIDERS: ATTENDING PHYSICIAN Internal Medicine Hematology & Oncology; FAMILY PHYSICIAN Nurse Practitioner Family
DX: C56.9 Malignant neoplasm of unspecified ovary (principal); R18.0 Malignant ascites
CPT/HCPCS: 49083; 89051

== ENCOUNTER 2024-09-20 10:22 | Outpatient (RCR) | payer MEDICARE, OTHER, SELFPAY ==
[2024-09-20 10:45] LABS: Hematocrit 33.7 % (37.0-47.0); Hemoglobin 10.6 g/dL (12.0-16.0); Mean Corp Hgb Conc. 31.5 g/dL (33.0-37.0); Mean Corpuscular Volume 83.6 fL (81.0-99.0); Platelet Count 460 10^3/uL (130-400); Red Cell Dist. Width 16.9 % (11.5-14.5)
[2024-09-20 12:01] LABS: ALT (SGPT) 11 U/L (0-35); AST (SGOT) 41 U/L (14-36); Albumin 2.7 g/dl (3.5-5.0); Alkaline Phosphatase 163 U/L (38-126); Blood Urea Nitrogen 19 mg/dl (7-17); Calcium 7.8 mg/dl (8.4-10.2); Carbon Dioxide 24 mmol/L (22-30); Chloride 106 mmol/L (98-107); Glucose 109 mg/dl (70-99); Potassium 4.4 mmol/L (3.5-5.1); Sodium 134 mmol/L (135-145); Total Protein 5.5 g/dl (6.3-8.2); eGFR > 60.00
[2024-09-21 14:38] LABS: CA 125 6600 U/mL (0-35)
== END 2024-10-07 23:59 | disposition home or self-care (01) ==
LOC: OID 10:22
PROVIDERS: ATTENDING PHYSICIAN Obstetrics & Gynecology Gynecologic Oncology
DX: C80.0 Disseminated malignant neoplasm, unspecified (principal); C56.9 Malignant neoplasm of unspecified ovary; C56.1 Malignant neoplasm of right ovary
CPT/HCPCS: 80053; 82570; 84156; 85025; 86304

== ENCOUNTER → 2024-09-22 13:37 | Outpatient (REF) | payer MEDICARE, OTHER, SELFPAY ==
[2024-09-22 14:10] VITALS: BP 105/76; BP_SYST 121
[2024-09-22 14:50] VITALS: BP 96/60; BP_SYST 112
[2024-09-22 15:04] LABS: Body Fluid Second Tech EF
== END ==
LOC: RADI 13:37
PROVIDERS: ATTENDING PHYSICIAN Internal Medicine Hematology & Oncology; FAMILY PHYSICIAN Nurse Practitioner Family
DX: C80.1 Malignant (primary) neoplasm, unspecified (principal); R18.0 Malignant ascites
CPT/HCPCS: 49083; 89051

== ENCOUNTER 2024-09-23 10:30 | Emergency (ER) | payer MEDICARE, OTHER, SELFPAY ==
[2024-09-23] VITALS (9 sets, daily range): BP systolic 106–124; BP diastolic 65–83; BMI 23.4
[2024-09-23 11:30] LABS: ALT (SGPT) 12 U/L (0-35); AST (SGOT) 54 U/L (14-36); Albumin 2.6 g/dl (3.5-5.0); Alkaline Phosphatase 175 U/L (38-126); Blood Urea Nitrogen 17 mg/dl (7-17); Calcium 7.6 mg/dl (8.4-10.2); Carbon Dioxide 22 mmol/L (22-30); Chloride 107 mmol/L (98-107); Estimated Creatinine Clearance 76 ml/min; Glucose 141 mg/dl (70-99); Potassium 4.1 mmol/L (3.5-5.1); Sodium 133 mmol/L (135-145); Total Protein 5.4 g/dl (6.3-8.2); eGFR > 60.00
[2024-09-23 11:33] LABS: Hematocrit 32.5 % (37.0-47.0); Hemoglobin 10.4 g/dL (12.0-16.0); Mean Corp Hgb Conc. 32.0 g/dL (33.0-37.0); Mean Corpuscular Volume 83.8 fL (81.0-99.0); Nucleated Red Blood Cells % 0 %; Platelet Count 455 10^3/uL (130-400); Red Cell Dist. Width 17.7 % (11.5-14.5)
[2024-09-23 11:39] LABS: INR 1.26; PT 16.3 Sec (11.4-14.6)
[2024-09-23 11:41] LABS: Urine Character Clear (Clear)
--- NOTE | 2024-09-23 12:09 | ED.GENMED ---
History of Present Illness
General
Chief Complaint: Blood Pressure Problem
Time Seen by Provider: 09/23/24 12:09
History of Present Illness
History of Present Illness:
TIME OF INITIAL EVALUATION
-
REVIEW OF OLD RECORDS
- I reviewed the note from Dr. Baca indicating the patient has a history of ovarian cancer and was to start chemo today but had systolics in the 80s and after fluids her systolic was in the 70s. She has abdominal distention and decreased urine
output and dark urine�there were concern for sepsis.
Note:
CHIEF COMPLAINT(S)
Shortness of breath, pleural effusion, recent diagnosis of blood clot in the leg leading to leg swelling.
HISTORY OF PRESENT ILLNESS
The patient is a 63-year-old female who presented with the primary complaints of shortness of breath and leg swelling. She was recently diagnosed with a pleural effusion and has undergone fluid drainage, with 700 mL being withdrawn from her belly
recently. The effusion was identified a couple of days ago, and her ability to breathe has slightly improved since the procedure, although she still experiences significant shortness of breath. Additionally, the patient reports having been diagnosed
with a blood clot in the leg the day before her discharge, and she is currently on apixaban (Eliquis) for management. Since the diagnosis, her leg has become noticeably swollen, now tripled in size compared to her other leg. The initial swelling had
once decreased slightly but has worsened to a new peak size.
Fluid resuscitation was performed previously, but questions arise regarding the accuracy of blood pressure readings as an initial drop in blood pressure was noted despite fluid administration. This led to considering issues with the cuff fit or
positioning. Diagnostic tests to rule out sepsis, including lactic acid levels and white blood cell count, appear unremarkable, and urine culture results are pending. Blood cultures have been drawn but have not resulted yet.
EXTERNAL RECORDS REVIEWED
The patient showed ultrasound findings confirming pleural effusion, and a previous ER discharge note that documented the diagnosis of a blood clot, for which the patient is now on apixaban.
CHRONIC MEDICAL CONDITIONS SIGNIFICANTLY AFFECTING CARE
Recent pleural effusion, blood clot in the leg.
PHYSICAL EXAM
General: Alert, cooperative, and in no acute distress.
Skin: Warm, dry.
Head: Normocephalic, atraumatic.
Neck: Supple, trachea midline.
Eye, Ears, Nose, and Throat: Oral mucosa moist.
Cardiovascular: Normal peripheral perfusion, and no edema noted outside of the described leg swelling.
Respiratory: Respirations are non-labored, though the patient does report shortness of breath associated with pleural effusion, she has slightly decreased breath sounds equally.
Gastrointestinal: Abdomen nondistended.
Back: Normal range of motion, Normal alignment.
Musculoskeletal: Right lower extremity is approximately 50% larger than the left consistent with known DVT
Neurological: Alert and oriented to person, place, time, and situation. No focal neurological deficit observed.
Psychiatric: Cooperative, appropriate mood & affect.
PROBLEM LIST
Acute
- Resolving low blood pressure; possibly could be related to loose cuff earlier as she has normotensive here
- Shortness of breath associated with pleural effusion
- Blood clot in the leg with significant swelling
PLAN
- Continue monitoring fluid resuscitation and ensure proper fit of blood pressure cuff for accurate readings.
- Follow up on pending urine and blood culture results.
- Consider additional imaging or intervention if leg swelling continues to worsen despite anticoagulation with apixaban.
- Consult with Dr. Montoya regarding current management and ongoing monitoring, particularly concerning recent pleural effusion interventions and anticoagulant therapy.
DIFFERENTIAL DIAGNOSIS
The Differential Diagnosis includes, in no particular order and is not limited to:
1. Deep vein thrombosis
2. Pulmonary embolism
3. Congestive heart failure
4. Sepsis
5. Chronic obstructive pulmonary disease exacerbation
6. Pneumonia
7. Acute respiratory distress syndrome
8. Malignancy-related pleural effusion
9. Liver cirrhosis with ascites
10. Peripheral vascular disease
These considerations will guide further testing and management strategies based on evolving clinical findings and laboratory results.
RADIOLOGY
- Chest x-ray shows tiny pleural effusions, ultrasound also obtained
EKG
- Sinus 109, right bundle branch block with associated ST abnormality
LABS
- White count is 9.7, hemoglobin 10.4, 82% lymphocytes, sodium 133, lactic 1.8, urinalysis shows 3+ leukocyte esterase
UPDATE
-SUMMARY OF ENCOUNTER
The patient, a 63-year-old female, presented to the emergency department with shortness of breath and concerns about low blood pressure, which were not confirmed upon evaluation and may have been due to a cuff issue. The patient also reported not
urinating adequately, leading to concerns of a possible kidney blockage. An ultrasound of the kidneys was scheduled to investigate further. Shortness of breath is associated with a previously diagnosed pleural effusion, which was described as
relatively minor on imaging. The patient has been on anticoagulation medication for a blood clot but is still experiencing significant leg swelling. Per consultation with Dr. Montoya, the patient is to start treatment tomorrow and possibly receive
an ultrasound today to check for kidney blockage. Chemotherapy was also discussed as a treatment to begin today.
ASSESSMENT
The patient has a history of pleural effusion and a blood clot in the leg, leading to significant swelling and current symptoms of inadequate urination, which prompts investigation for potential kidney blockage.
MANAGEMENT OF THE PATIENTS CARE WAS DISCUSSED WITH
Dr. Montoya discussed current management, including the potential for starting treatment the following day. There was also a discussion about the possibility of additional procedures, such as a filter, though no specific decision was reached.
PLAN
- Proceed with an ultrasound to investigate potential kidney blockage.
- Begin chemotherapy treatment as discussed.
- Continue anticoagulation therapy as planned.
- Monitor the patients response to treatment and follow up with Dr. Montoya regarding further management.
ADDITIONAL TESTING AND IMAGING CONSIDERED
Ultrasound of the abdomen and kidneys was considered to assess for potential kidney blockage due to minimal urine output and presumed ascites pressure.
PATIENT EDUCATION AND COUNSELING
The patient was informed about the importance of monitoring urine output and the potential need for further interventions based on ultrasound findings. Continuing the current medication regimen for anticoagulation was emphasized.
FOLLOW-UP INSTRUCTIONS
The patient is to follow up with her primary care provider or specialist regarding the results of the ultrasound and further management, as well as to ensure the chemotherapy and other treatments are commenced as scheduled.
MEDICAL DECISION MAKING
- Number and Complexity of Problems Addressed: Chronic conditions affecting care include pleural effusion and blood clot in the leg. Differential diagnosis considerations include deep vein thrombosis, pulmonary embolism, congestive heart failure,
sepsis, chronic obstructive pulmonary disease exacerbation, pneumonia, acute respiratory distress syndrome, malignancy-related pleural effusion, liver cirrhosis with ascites, and peripheral vascular disease.
- Data:
Category 1
Non-emergency department records reviewed. External record reviewed: Ultrasound findings confirming pleural effusion and previous ER discharge note documenting the diagnosis of a blood clot.
Category 3
Discussion of management with Dr. Montoya regarding ongoing monitoring and potential interventions.
-Risk: Prescription medication was managed with continued anticoagulation therapy and initiation of chemotherapy. Consideration of Admission/Observation: Escalation of care including admission/observation was considered given the complexity and risk
of the patients presenting complaint, exam findings, and/or their underlying comorbidities. However, ultimately, I feel the patient is safe for outpatient management with close follow-up. Reasoning: Work-up reassuring, does not reveal any acute
life/organ-threatening processes, patients symptoms well controlled upon reevaluation, reexamination is reassuring, vitals are stable, patient agreeable with discharge, reliable for follow-up.
DIAGNOSIS
- Ovarian cancer
Hydronephrosis which is mild is noted on ultrasound imaging. Ultrasound of the right lower extremity again shows DVT but according to radiologist looks improved. She is to continue Eliquis. Prior to discharge she had some concerns for dehydration
therefore will give a liter of fluid prior to discharge.
Past History
Past History
ED Past Medical History: Cancer and Hyperthyroidism
ED Past Surgical History: Gynecological and Other
Patient has exhibited threatening behavior?: No
Social History
Tobacco: Non-smoker
Alcohol: None
Drug: None
Living: with family
Phy Exam
Physical Exam
Physical Exam:
See HPI
Sepsis
Sepsis Screening
Sepsis Assessment: Sepsis Ruled Out
Sepsis Screen
Sepsis Screen: Sepsis Ruled Out
Date: 09/23/24
Time: 17:04
Course
Orders/Labs/Results
Orders:
Orders
09/23/24 10:53
Electrocardiogram (*1) Urgent
Reason for Study: Other
Other Reason for Exam: Possible Sepsis
09/23/24 10:54
EKG- Treatment ONCE
09/23/24 10:57
Complete Blood Count/With Diff Urgent
Comprehensive Metabolic Panel Urgent
Lactic Acid Urgent
Prothrombin Time Urgent
Urinalysis Reflex To Culture Urgent
Date Specimen was Collected: 09/23/24
Time Specimen was Collected: 10:54
Urine Microscopic Reflex Cult Urgent
Blood Culture Urgent
[place] Source: Blood/Venous
Specimen Description:
Date Specimen was Collected: 09/23/24
Time Specimen was Collected: 10:54
Urine Culture Urgent
[facility] Source: U
Specimen Description:
Date Specimen was Collected: 09/23/24
Time Specimen was Collected: 10:54
09/23/24 12:32
CR Chest - 2 Views Urgent
Comment:
Reason For Exam: sob prior effusions
09/23/24 12:40
Ondansetron Injectable [Zofran] 4 mg IV NOW STA
09/23/24 13:51
US Abdomen Complete/Upper Urgent
Comment:
Reason For Exam: eval ascites and for hydronephrosis
09/23/24 13:54
US Periph Venous LOWER Ext RT Urgent
Comment:
Reason For Exam: worsening RLE swelling despite Eliquis for DVT
Abnormal Lab Results
09/23/24
10:57
RBC 3.88 L 10^6/uL
(4.20-5.40)
Hgb 10.4 L g/dL
(12.0-16.0)
Hct 32.5 L %
(37.0-47.0)
MCH 26.8 L pg
(27.0-31.0)
MCHC 32.0 L g/dL
(33.0-37.0)
RDW 17.7 H %
(11.5-14.5)
Plt Count 455 H 10^3/uL
(130-400)
Abs Immat Gran (auto) 0.2 H 10^3/uL
(0-0.05)
Absolute Neuts (auto) 8.0 H 10^3/uL
(1.4-6.5)
Absolute Lymphs (auto) 1.1 L 10^3/uL
(1.2-3.4)
Immature Gran % 1.9 H %
(0-0.5)
Neutrophils % 82.2 H %
(42.2-75.2)
Lymphocytes % 11.4 L %
(20.5-51.1)
PT 16.3 H Sec
(11.4-14.6)
Sodium 133 L mmol/L
(135-145)
Glucose 141 H mg/dl
(70-99)
Calcium 7.6 L mg/dl
(8.4-10.2)
AST 54 H U/L
(14-36)
Alkaline Phosphatase 175 H U/L
(38-126)
Total Protein 5.4 L g/dl
(6.3-8.2)
Albumin 2.6 L g/dl
(3.5-5.0)
Ur Occult Blood Reflex 2+ A
(Negative)
Leukocyte Esterase Rfl 3+ A
(Negative)
Urine RBC 3-6 A /HPF
(0-2)
Urine WBC (Reflex) 11-15 A /HPF
(0-5)
Urine Bacteria (Reflex) Moderate A
(Negative)
Urine Albumin (Reflex) 2+ A
(Neg - Trace)
09/23/24 10:57
09/23/24 10:57
Vital Signs
Initial and Last Documented VS:
Initial Vital Signs
Temp Pulse Resp BP Pulse Ox
36.7 C 112 16 106/65 98
09/23/24 10:47 09/23/24 10:47 09/23/24 10:47 09/23/24 10:47 09/23/24 10:47
Last Documented Vital Signs
Temp Pulse Resp BP Pulse Ox
36.7 C 112 20 115/82 97
09/23/24 10:47 09/23/24 13:30 09/23/24 13:30 09/23/24 13:27 09/23/24 13:30
*Pulse Oximetry
SaO2: 100
Oxygen Mode of Delivery: Room air
Patient hypoxic: no
*Critical Care Note
Total Time (30-74mins, 75-104mins- exclusive of procedures): Not Applicable
ED Attending Note
-
Portions of this chart may have been created with voice recognition software.� Occasional wrong word or��sound alike� substitutions may have occurred due to the inherent limitations of voice recognition software.
Discharge Plan
Departure
Patient Disposition: Home (Routine Discharge)
Date of Disposition: 09/23/24
Time of Disposition: 16:56
Patient with high blood pressure during this ER visit?: Yes
Discharge Problem:
Acute dehydration
Prescriptions:
No Action
sucralfate 100 mg/mL Suspension
1 g PO ACHS Qty: 1000 0RF
Patient Comments:
Pharmacy has not filled
lorazepam 0.5 mg Tablet
0.5 mg PO Q4HPRN PRN (Reason: anxiety) Qty: 7 0RF
polyethylene glycol 3350 17 gram Powder In Packet
17 g PO DAILY Qty: 0 0RF
folic acid 1 mg Tablet
1 mg PO DAILY Qty: 0 0RF
oxycodone [OxyContin] 10 mg Tablet,Oral Only,Ext.Rel.12 Hr
10 mg PO Q12 Qty: 8 0RF
sennosides-docusate sodium 8.6-50 mg Tablet
1 tab PO BID Qty: 0 0RF
cyanocobalamin (vitamin B-12) [Vitamin B-12] 1,000 mcg Tablet
1,000 mcg PO DAILY Qty: 0 0RF
pantoprazole 40 mg Tablet,Delayed Release (Dr/Ec)
40 mg PO BID Qty: 60 0RF
ondansetron HCl 4 mg tablet
4 mg PO Q6H PRN (Reason: nausea and vomiting) Qty: 30 0RF
oxycodone 5 mg capsule
5 mg PO Q6H PRN (Reason: Pain) Qty: 7 0RF
Eliquis 5 mg tablet
5 mg PO BID Qty: 74 0RF
Rx Instructions:
10mg BID x 7 days then 5mg BID thereafter
Referrals:
Altagracia Pierre MD [Active, Hematology / Oncology]
Lyudmila Greenfield CRNP [Family Provider, Internal Medicine]
Activity Restrictions/Additional Instructions:
The ultrasound shows mild hydronephrosis. Ascites is again is noted. DVT is noted but looks a little bit better than prior. Continue the Eliquis. We gave you a liter of fluid while in the Emergency Department however your blood pressure has
remained normal here. Follow-up with Dr. Baca.
Interventions
Interventions:
*Risk Screen - Suicide Last Done: 09/23/24 10:47
*General Assessment Last Done: 09/23/24 11:24
*Neglect/Abuse Screening Last Done: 09/23/24 10:47
*ED- Fall Risk Assessment Last Done: 09/23/24 11:24
*ED COVID-19 Vaccine History Last Done: 09/23/24 11:24
ED- Cardiac Assessment Last Done: 09/23/24 11:24
ED- Neurological Assessment Last Done: 09/23/24 11:24
ED- Pulmonary Assessment Last Done: 09/23/24 11:24
Discharge Date and Time
Print Language: GABONESE
[2024-09-23 12:25] LABS: Urine Squamous Cell 16-20 /LPF (Few)
[2024-09-23] MEDS: ZOFRAN 4 MG IV (12:42)
[2024-09-23] MEDS: NSS 1000 IV (17:08)
== END 2024-09-23 19:46 | disposition home or self-care (01) ==
LOC: EMR 10:30
PROVIDERS: Emergency Medicine; EMERGENCY PHYSICIAN Emergency Medicine; FAMILY PHYSICIAN Nurse Practitioner Family
DX: E86.0 Dehydration (principal); J90 Pleural effusion, not elsewhere classified; C56.9 Malignant neoplasm of unspecified ovary; I82.411 Acute embolism and thrombosis of right femoral vein; N13.30 Unspecified hydronephrosis; Z79.01 Long term (current) use of anticoagulants
CPT/HCPCS: 99284; 96374; 96361; 71046; 76700; 80053; 81003; 81015; 83605; 85025; 85610; 87040; 87086; 93005; 93971

== ENCOUNTER → 2024-09-30 12:24 | Outpatient (REF) | payer MEDICARE, OTHER, SELFPAY ==
[2024-09-30 12:43] VITALS: BP 118/81; BP_SYST 133
[2024-09-30 13:59] VITALS: BP 117/78
[2024-09-30 14:33] LABS: Body Fluid Second Tech AMA
== END ==
LOC: RADI 12:24
PROVIDERS: ATTENDING PHYSICIAN Internal Medicine Hematology & Oncology; FAMILY PHYSICIAN Nurse Practitioner Family
DX: R18.8 Other ascites (principal)
CPT/HCPCS: 49083; 89051

== ENCOUNTER → 2024-10-04 13:07 | Outpatient (REF) | payer MEDICARE, OTHER, SELFPAY ==
[2024-10-04 13:19] VITALS: BP 115/71; BP_SYST 120
[2024-10-04 14:09] VITALS: BP 109/76
[2024-10-04 15:24] LABS: Body Fluid Second Tech EM
== END ==
LOC: RADI 13:07
PROVIDERS: ATTENDING PHYSICIAN Internal Medicine Hematology & Oncology
DX: C80.1 Malignant (primary) neoplasm, unspecified (principal); R18.0 Malignant ascites
CPT/HCPCS: 49083; 89051

== ENCOUNTER 2024-10-05 18:30 | Inpatient (IN) | payer MEDICARE, OTHER, SELFPAY ==
[2024-10-05] VITALS (9 sets, daily range): BP systolic 99–126; BP diastolic 53–79; BMI 20.1
[2024-10-05 14:16] LABS: Hematocrit 33.8 % (37.0-47.0); Hemoglobin 10.5 g/dL (12.0-16.0); Mean Corp Hgb Conc. 31.1 g/dL (33.0-37.0); Mean Corpuscular Volume 83.9 fL (81.0-99.0); Platelet Count 107 10^3/uL (130-400); Red Cell Dist. Width 18.9 % (11.5-14.5)
[2024-10-05 14:21] LABS: INR 1.02; PT 13.9 Sec (11.4-14.6)
[2024-10-05 14:38] LABS: Absolute Neutrophils -Man Diff 18.0 10^3/uL (1.4-6.5); Platelets Checked Yes
[2024-10-05 14:39] LABS: ALT (SGPT) 12 U/L (0-35); AST (SGOT) 40 U/L (14-36); Albumin 3.1 g/dl (3.5-5.0); Alkaline Phosphatase 198 U/L (38-126); Anisocytosis 1+; Blood Urea Nitrogen 12 mg/dl (7-17); Calcium 8.2 mg/dl (8.4-10.2); Carbon Dioxide 24 mmol/L (22-30); Chloride 104 mmol/L (98-107); Glucose 77 mg/dl (70-99); Hypochromasia 1+; Normal RBC Morphology No; Polychromasia 1+; Potassium 4.1 mmol/L (3.5-5.1); Sodium 136 mmol/L (135-145); Total Cells Counted 100; Total Protein 5.6 g/dl (6.3-8.2); eGFR > 60.00
[2024-10-05 14:40] LABS: Troponin I < 0.012 ng/ml
--- NOTE | 2024-10-05 14:52 | ED.GENMED ---
History of Present Illness
<Brant Crowley PA-C - Last Filed: 10/05/24 19:14>
General
Chief Complaint: Cardiac Symptoms
Time Seen by Provider: 10/05/24 14:35
History of Present Illness
History of Present Illness:
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 She went for a outpatient stress test and her heart rate
was noted to be in the 130s thus this was discontinued and she was sent to the ED. She underwent a paracentesis yesterday and fluid was negative for infectious etiology. She denies any coughing but does have shortness of breath recently. Has been
intermittently compliant with her Eliquis due to pill intolerance.
Past History
<Brant Crowley PA-C - Last Filed: 10/05/24 19:14>
Past History
ED Past Medical History: Cancer and Hyperthyroidism
ED Past Surgical History: Gynecological and Other
Patient has exhibited threatening behavior?: No
Social History
Tobacco: Non-smoker
Alcohol: None
Drug: None
Living: with family
Review of Systems
<Brant Crowley PA-C - Last Filed: 10/05/24 19:14>
Review of Systems
Allergies reviewed?: Yes
All Other Systems: ROS reviewed and negative except as documented in HPI and ROS
Phy Exam
<Brant Crowley PA-C - Last Filed: 10/05/24 19:14>
Physical Exam
Physical Exam:
GEN: Thin and frail, no immediate distress
HEENT: Oral mucosa moist, no scleral icterus
Cardiac: Tachycardic, regular
Lung: Mildly tachypneic but no respiratory distress, grossly diminished bibasilar breath sounds
Abdomen: Protuberant with palpable mass in the right lower quadrant, nontender
MSK: Significant right lower extremity edema, no left lower extremity edema
Skin: Generally pale, no jaundice
Neuro: AO x3, moves all extremities freely
Psych: Calm, cooperative
Course
<Brant Crowley PA-C - Last Filed: 10/05/24 19:14>
Orders/Labs/Results
Orders:
Orders
10/05/24 13:02
Electrocardiogram (*1) Urgent
Reason for Study: Tachycardia
EKG- Treatment ONCE
10/05/24 14:00
Complete Blood Count/With Diff Urgent
Comprehensive Metabolic Panel Urgent
Manual Differential Urgent
Monotest Urgent
Comment: ADD ON
Prothrombin Time Urgent
Troponin I Urgent
10/05/24 14:50
CT Chest PE Study Urgent
Comment:
Reason For Exam: tachycardia/SOB, RLE edema
10/05/24 15:30
Lactic Acid Urgent
Urinalysis Reflex To Culture Urgent
Date Specimen was Collected: 10/05/24
Time Specimen was Collected: 15:28
Urine Microscopic Reflex Cult Urgent
Blood Culture Q30M
[facility] Source: Blood/Venous
Specimen Description:
Blood Culture Q30M
[facility] Source: Blood/Venous
Specimen Description:
Urine Culture Urgent
[facility] Source: U
Specimen Description:
Date Specimen was Collected: 10/05/24
Time Specimen was Collected: 15:28
10/05/24 16:16
Lactated Ringers [Lr] 1,000 ml IV BOLUS
10/05/24 16:17
Aztreonam [Azactam] 2,000 mg IV NOW STA
10/05/24 16:40
Sterile Water [Sterile Water For Injection] 10 ml .ROUTE .STK-MED ONE
10/05/24 16:46
Cefepime HCl [Maxipime] 2,000 mg IV NOW STA
10/05/24 16:48
Sterile Water [Sterile Water For Injection] 10 ml .ROUTE .STK-MED ONE
10/05/24 17:43
Blood Culture Urgent
[facility] Source: Blood/Venous
Specimen Description:
Comment: Please draw from port
10/05/24 18:13
Admit/Transfer Patient As Directed
Co-Sign Provider:
Level of Care: Inpatient admission
Assign to:: Telemetry
Physician / Group: Gina
Diagnosis: SIRS
Reason for Telemetry: Arrhythmia
Date to Stop Telemetry: 10/08/24
Time to Stop Telemetry: 11:00
Reason for Hospitalization: IVF, IV abx
Expected length of stay greater than two midnights?: Yes
ELOS- Estimated Length of Stay in days: 3
I certify the patient meets the requirements for IP care: Yes
PRN Pain Medication Management As Directed
May give lesser potent ordered pain med per pt: Yes
preference::
Protocol:: Medication orders for pain may be administered in a
manner that supports deferring to patient preference
when the pt is:
- Requesting an ordered lesser potent pain medication.
Least to most potent pain medications are defined
as: acetaminophen < NSAID < tramadol < opioids
(morphine, oxycodone, hydromorphone).
- Requesting a lesser dose of the same medication IF
ORDERED.
- Requesting a less intrusive route of administration
if both routes are prescribed by the provider (PO <
IV).
10/05/24 18:19
Code Status As Directed
Resuscitation Status: Full Code
10/05/24 18:29
Add On- LAB Urgent
Tests Added?: monospot
COVID-19 Antigen Urgent
Source: Nasal Swab
Rapid Strep Group A Urgent
[facility] Source: Throat/Pharynx
Specimen Description:
Throat Culture, Comprehensive Urgent
[facility] Source: Throat/Pharynx
Specimen Description:
10/05/24 19:30
Lactic Acid Q4H
Comment: repeat q4 hours x 4 or until less than 2 mmol/L
10/05/24 23:30
Lactic Acid Q4H
Comment: repeat q4 hours x 4 or until less than 2 mmol/L
10/06/24 03:30
Lactic Acid Q4H
Comment: repeat q4 hours x 4 or until less than 2 mmol/L
10/08/24 11:00
DC Protocol for Telemetry ONCE
Abnormal Lab Results
10/05/24 10/05/24
14:00 15:30
WBC 21.5 H 10^3/uL
(4.8-10.8)
RBC 4.03 L 10^6/uL
(4.20-5.40)
Hgb 10.5 L g/dL
(12.0-16.0)
Hct 33.8 L %
(37.0-47.0)
MCH 26.1 L pg
(27.0-31.0)
MCHC 31.1 L g/dL
(33.0-37.0)
RDW 18.9 H %
(11.5-14.5)
Plt Count 107 L 10^3/uL
(130-400)
Abs Neuts (Manual) 18.0 H 10^3/uL
(1.4-6.5)
Band Neutrophils 29 H %
(0-3)
Lymphocytes (Manual) 6 L %
(20-51)
Lactic Acid 4.6 H* mmol/L
(0.7-2.0)
Calcium 8.2 L mg/dl
(8.4-10.2)
AST 40 H U/L
(14-36)
Alkaline Phosphatase 198 H U/L
(38-126)
Total Protein 5.6 L g/dl
(6.3-8.2)
Albumin 3.1 L g/dl
(3.5-5.0)
Urine Ketones 3+ A
(Negative)
Ur Occult Blood Reflex 1+ A
(Negative)
Leukocyte Esterase Rfl 1+ A
(Negative)
Urine Albumin (Reflex) 2+ A
(Neg - Trace)
10/05/24 14:00
10/05/24 14:00
Vital Signs
Initial and Last Documented VS:
Initial Vital Signs
Temp Pulse Resp BP Pulse Ox
97.8 F 137 18 109/72 97
10/05/24 13:14 10/05/24 13:14 10/05/24 13:14 10/05/24 13:14 10/05/24 13:14
Last Documented Vital Signs
Temp Pulse Resp BP Pulse Ox
97.8 F 123 18 126/78 98
10/05/24 13:14 10/05/24 17:15 10/05/24 17:15 10/05/24 16:43 10/05/24 17:15
<Sabi Giron MD - Last Filed: 10/05/24 16:29>
Orders/Labs/Results
Orders:
Orders
10/05/24 13:02
Electrocardiogram (*1) Urgent
Reason for Study: Tachycardia
EKG- Treatment ONCE
10/05/24 14:00
Complete Blood Count/With Diff Urgent
Comprehensive Metabolic Panel Urgent
Manual Differential Urgent
Monotest Urgent
Comment: ADD ON
Prothrombin Time Urgent
Troponin I Urgent
10/05/24 14:50
CT Chest PE Study Urgent
Comment:
Reason For Exam: tachycardia/SOB, RLE edema
10/05/24 15:30
Lactic Acid Urgent
Urinalysis Reflex To Culture Urgent
Date Specimen was Collected: 10/05/24
Time Specimen was Collected: 15:28
Urine Microscopic Reflex Cult Urgent
Blood Culture Q30M
[facility] Source: Blood/Venous
Specimen Description:
Blood Culture Q30M
[facility] Source: Blood/Venous
Specimen Description:
Urine Culture Urgent
[facility] Source: U
Specimen Description:
Date Specimen was Collected: 10/05/24
Time Specimen was Collected: 15:28
10/05/24 16:16
Lactated Ringers [Lr] 1,000 ml IV BOLUS
10/05/24 16:17
Aztreonam [Azactam] 2,000 mg IV NOW STA
10/05/24 16:40
Sterile Water [Sterile Water For Injection] 10 ml .ROUTE .STK-MED ONE
10/05/24 16:46
Cefepime HCl [Maxipime] 2,000 mg IV NOW STA
10/05/24 16:48
Sterile Water [Sterile Water For Injection] 10 ml .ROUTE .STK-MED ONE
10/05/24 17:43
Blood Culture Urgent
[facility] Source: Blood/Venous
Specimen Description:
Comment: Please draw from port
10/05/24 18:13
Admit/Transfer Patient As Directed
Co-Sign Provider:
Level of Care: Inpatient admission
Assign to:: Telemetry
Physician / Group: Gina
Diagnosis: SIRS
Reason for Telemetry: Arrhythmia
Date to Stop Telemetry: 10/08/24
Time to Stop Telemetry: 11:00
Reason for Hospitalization: IVF, IV abx
Expected length of stay greater than two midnights?: Yes
ELOS- Estimated Length of Stay in days: 3
I certify the patient meets the requirements for IP care: Yes
PRN Pain Medication Management As Directed
May give lesser potent ordered pain med per pt: Yes
preference::
Protocol:: Medication orders for pain may be administered in a
manner that supports deferring to patient preference
when the pt is:
- Requesting an ordered lesser potent pain medication.
Least to most potent pain medications are defined
as: acetaminophen < NSAID < tramadol < opioids
(morphine, oxycodone, hydromorphone).
- Requesting a lesser dose of the same medication IF
ORDERED.
- Requesting a less intrusive route of administration
if both routes are prescribed by the provider (PO <
IV).
10/05/24 18:19
Code Status As Directed
Resuscitation Status: Full Code
10/05/24 18:29
Add On- LAB Urgent
Tests Added?: monospot
COVID-19 Antigen Urgent
Source: Nasal Swab
Rapid Strep Group A Urgent
[facility] Source: Throat/Pharynx
Specimen Description:
Throat Culture, Comprehensive Urgent
[facility] Source: Throat/Pharynx
Specimen Description:
10/05/24 19:30
Lactic Acid Q4H
Comment: repeat q4 hours x 4 or until less than 2 mmol/L
10/05/24 23:30
Lactic Acid Q4H
Comment: repeat q4 hours x 4 or until less than 2 mmol/L
10/06/24 03:30
Lactic Acid Q4H
Comment: repeat q4 hours x 4 or until less than 2 mmol/L
10/08/24 11:00
DC Protocol for Telemetry ONCE
Abnormal Lab Results
10/05/24 10/05/24
14:00 15:30
WBC 21.5 H 10^3/uL
(4.8-10.8)
RBC 4.03 L 10^6/uL
(4.20-5.40)
Hgb 10.5 L g/dL
(12.0-16.0)
Hct 33.8 L %
(37.0-47.0)
MCH 26.1 L pg
(27.0-31.0)
MCHC 31.1 L g/dL
(33.0-37.0)
RDW 18.9 H %
(11.5-14.5)
Plt Count 107 L 10^3/uL
(130-400)
Abs Neuts (Manual) 18.0 H 10^3/uL
(1.4-6.5)
Band Neutrophils 29 H %
(0-3)
Lymphocytes (Manual) 6 L %
(20-51)
Lactic Acid 4.6 H* mmol/L
(0.7-2.0)
Calcium 8.2 L mg/dl
(8.4-10.2)
AST 40 H U/L
(14-36)
Alkaline Phosphatase 198 H U/L
(38-126)
Total Protein 5.6 L g/dl
(6.3-8.2)
Albumin 3.1 L g/dl
(3.5-5.0)
Urine Ketones 3+ A
(Negative)
Ur Occult Blood Reflex 1+ A
(Negative)
Leukocyte Esterase Rfl 1+ A
(Negative)
Urine Albumin (Reflex) 2+ A
(Neg - Trace)
10/05/24 14:00
10/05/24 14:00
Vital Signs
Initial and Last Documented VS:
Initial Vital Signs
Temp Pulse Resp BP Pulse Ox
97.8 F 137 18 109/72 97
10/05/24 13:14 10/05/24 13:14 10/05/24 13:14 10/05/24 13:14 10/05/24 13:14
Last Documented Vital Signs
Temp Pulse Resp BP Pulse Ox
97.8 F 123 18 126/78 98
10/05/24 13:14 10/05/24 17:15 10/05/24 17:15 10/05/24 16:43 10/05/24 17:15
<Brant Crowley PA-C - Last Filed: 10/05/24 19:14>
MDM/Problems Addressed
MDM/Problems Addressed:
Patient's leukocytosis and bandemia may certainly be a product of recent Neulasta however cannot discount the role of her severe tachycardia and lactic acidosis. Will cover with empiric antibiotics and admit to the hospitalist service for further
management, no clear source of infection identified at this time
<Brant Crowley PA-C - Last Filed: 10/05/24 19:14>
*Pulse Oximetry
SaO2: 97
Oxygen Mode of Delivery: Room air
Patient hypoxic: no
*Critical Care Note
Total Time (30-74mins, 75-104mins- exclusive of procedures): Not Applicable
ED Attending Note
<Brant Crowley PA-C - Last Filed: 10/05/24 19:14>
-
Portions of this chart may have been created with voice recognition software.� Occasional wrong word or��sound alike� substitutions may have occurred due to the inherent limitations of voice recognition software.
<Sabi Giron MD - Last Filed: 10/05/24 16:29>
ED Attending Note
Patient seen and examined by attending physician: Yes
I performed the substantive portion of visit, reviewed & personally made and approve the management plan that is documented in note by myself or ROMAINE.: Yes
ED Attending Note:
Patient appears pale and tired. However, patient is nontoxic. She is breathing comfortably. Abdomen is distended
Discharge Plan
Departure
Patient Disposition: Admit
Date of Disposition: 10/05/24
Time of Disposition: 16:58
Admit to: Med/Surg
Presentation/result/management discussed w/ accepting MD/DO: Hospitalist
Discharge Problem:
Tachycardia, Leukocytosis, Bilateral pleural effusion, Primary cancer of ovary with widespread metastatic disease
Interventions
Interventions:
*Risk Screen - Suicide Last Done: 10/05/24 13:16
*General Assessment Last Done: 10/05/24 13:16
*Neglect/Abuse Screening Last Done: 10/05/24 13:16
*ED COVID-19 Vaccine History Last Done: 10/05/24 13:16
ED- Pulmonary Assessment Last Done: 10/05/24 17:26
ED- Cardiac Assessment Last Done: 10/05/24 17:26
[2024-10-05 15:40] LABS: Urine Character Clear (Clear)
[2024-10-05 15:52] LABS: Urine Squamous Cell 0-2 /LPF (Few)
[2024-10-05 15:53] LABS: Urine Red Blood Cell 0-2 /HPF (0-2); Urine Urothelial Cell 0-2 /LPF (FEW)
[2024-10-05] MEDS: LR 1000 IV (16:39)
[2024-10-05] MEDS: MAXIPIME 2000 MG IV (16:51)
--- NOTE | 2024-10-05 17:43 | HPS.HSE ---
Family Physician
-
Family Physician: JULEE John
Chief Complaint
-
Tachycardia
History of Present Illness
Patient is a 63 y/o female past medical history of stage IV metastatic ovarian cancer and RLE DVT who presents with tachycardia. Patient was scheduled for an outpatient stress test today. Upon arrival for the test her rate was in the 130s and she
was sent to the emergency department. Patient reports very poor intake due to difficult swallowing. She reports she has to swallow several times to get solids down. She reports some associated sore throat. She reports shortness of breath which is
unchanged. She denies cough. She reports some diarrhea about on episode per day which she attributes to poor oral intake. She denies abdominal pain. She denies dysuria or urinary frequency. She has noted increased pain in her sacral area and
notes she has been mostly in bed or chair due to her weakness. Last chemotherapy was 2 weeks ago after which she did receive Neulasta. Last paracentesis was yesterday and not consistent with infection
Medical History
Past Medical History
Past Medical History: Reports Other
Additional Past Medical History:
Stage IV Metastatic Ovarian Cancer
Peritoneal Carcinomatosis
RLE DVT - September 2024
Left Breast Cancer s/p Lumpectomy, Chemo and Radiation
Past Surgical History: Reports Other
Additional Past Surgical History:
Left Lumpectomy
Social History
Tobacco: Non-smoker
Alcohol: None
Drug: None
Living: With Family
Family History
Family History: Not pertinent
Allergies / Home Medications
Allergies reflects when Allergies were last updated in [facility].
Home Medications with original date entered in [facility]
Allergy/Medication List:
Allergies
Allergy/AdvReac Type Severity Reaction Status Date / Time
penicillin G Allergy Unknown Verified 10/05/24 16:47
from
childhood
Home Medications
sucralfate 100 mg/mL oral suspension 1 g (10 mL) PO ACHS #1,000 mL 09/15/24
apixaban 5 mg tablet (Eliquis) 5 mg PO DAILY 10/05/24
atorvastatin 20 mg tablet (Lipitor) 20 mg PO DAILY 10/05/24
lorazepam 1 mg tablet 1 mg PO BIDPRN PRN anixety 10/05/24
ondansetron HCl 4 mg tablet 4 mg PO Q6HPRN PRN nausea and vomiting 10/05/24
polyethylene glycol 3350 17 gram oral powder packet 17 g PO DAILYPRN PRN constipation 10/05/24
tramadol 50 mg tablet 50 mg PO TIDPRN PRN moderartes pains 10/05/24
Review of Systems
-
A 12 point ROS was completed and negative except as noted: Yes
Constitutional: Denies Fever
Physical Exam
Vital Signs
Vital Signs
Temp Pulse Resp BP Pulse Ox
97.8 F 123 18 126/78 98
10/05/24 13:14 10/05/24 17:15 10/05/24 17:15 10/05/24 16:43 10/05/24 17:15
Physical Exam
General: Comfortable, Conversant and Other (Appears thin)
HEENT: NormoCephalic and Atraumatic
Respiratory: Clear, Non Labored Respirations and Decreased Breath Sounds (Bilateral bases)
Cardiac: S1/S2, Regular Rhythm and Tachycardia
GI: Soft, Non Tender and Distended (Slight fluid wave)
Genito-urinary: Clear Urine
Musculoskeletal: No Clubbing, No Cyanosis and Edema, Right Lower Extremity
Skin: Warm and Dry; No Decubitus Ulcers
Neuro: Awake, Alert, Oriented and Nonfocal/grossly intact
Psych: Calm
Laboratory Results
-
10/05/24 14:00
10/05/24 14:00
Laboratory Results
PT 13.9 Sec (11.4-14.6) 10/05/24 14:00
INR 1.02 10/05/24 14:00
Lactic Acid 4.6 mmol/L (0.7-2.0) H* 10/05/24 15:30
Total Bilirubin 0.5 mg/dl (0.2-1.3) 10/05/24 14:00
AST 40 U/L (14-36) H 10/05/24 14:00
ALT 12 U/L (0-35) 10/05/24 14:00
Alkaline Phosphatase 198 U/L (38-126) H 10/05/24 14:00
Troponin I < 0.012 ng/ml 10/05/24 14:[address] PE Study:
Examination is negative for pulmonary embolism.
Bilateral pleural effusions, right greater than left.
Ascites within the visualized upper abdomen, with findings suggestive of peritoneal carcinomatosis.
Data Reviewed
-
CT Scan: Report Reviewed by me
Lab Data: Labs Reviewed by me
Impression/Plan
-
Systemic Inflammatory Response Syndrome, appears septic with elevated lactic acid however source remains unclear
-Await blood cultures and check third culture from port
-Check monospot, strep and throat culture
-Check COVID
-Consult IR for thoracentesis for evaluate for possible empyema
-Continue vancomycin, cefepime and Flagyl pending culture data
-Trend lactic acid level
Sinus Tachycardia
-Review of records indicate heart rate around 100-110s during prior admission
-Monitor on Telemetry
Stage IV Metastatic Ovarian Cancer
Peritoneal Carcinomatosis
Malignant Ascites / Pleural Effusion
-Last Chemo 2 weeks ago
Right Lower Extremity DVT - September 2024
-Continue Eliquis
Code Status: Full Code
--- NOTE | 2024-10-05 19:28 | W.PN.UPDATE ---
Update Note
Progress Note Update
This is an addendum to the H&P written by Naty Montero on 10/05/2024. �Patient seen and examined independently with PA.
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
deficiency, hyponatremia, chronic dysphagia, presenting with severe tachycardia and generalized weakness. �She had scheduled outpatient stress test today and a heart rate was in the 130s and was sent to the emergency room.
Has been having sore throat for few days with difficulty swallowing, neck swelling. �Shortness of breath at baseline.
Underwent paracentesis yesterday with negative fluid culture.
Vital signs show tachycardia of 130s.
Lab for leukocytosis. �Chronic anemia 10.5. �Thrombocytopenia 107. �Lactic acid 4.6. �EKG shows sinus tachycardia, incomplete right bundle branch block. �Urinalysis unremarkable.
Concern for sepsis unclear source. �Check COVID, throat culture, Monospot, strep throat. �Check port culture, blood cultures. �IR for thoracentesis for culture studies for consideration of empyema. �IV fluids. �Vancomycin/cefepime and Flagyl
empirically.
Pancytopenia secondary to chemotherapy.
[2024-10-05 20:30] LABS: COVID-19 Antigen Negative (Negative)
--- NOTE | 2024-10-05 21:15 | PTCARENOTE ---
Received patient from ED via stretcher. Patient ambulated from stretcher to bed x1 assist. Oriented patient to room and placed call bradshaw within reach.
--- NOTE | 2024-10-05 21:23 | PHA.VAN.IN ---
Assessment
- Assessment
Renal Function: Appears similar to baseline (09/20/24 BASELINE SCR: 0.8)
Concomitant Antimicrobials: CEFEPIME
- Previous Dosing Experience
Previous Regimen: SINGLE DOSE ONLY
AUC Dosing Plan
- Dosing Variables
Dosing Weight (kg): 49.8
Dosing CrCl (ml/min): 75
Vd coefficient (L/kg): 0.7
- Empiric Dosing
Initial / Loading Dose: 1GM
Maintenance Regimen: 500MG IV Q12H
Estimated AUC (mcg*h/mL): 445
Estimated Peak (mcg*h/mL): 26.1
Estimated Trough (mcg/ml): 12.5
Estimated Half Life (H): 10.4
Pharmacokinetics Vancomycin I
- -
Patient Age: 63
Patient Sex: Female
Vancomycin Day #: 1
Indication: Other (SEPSIS)
Requesting Provider: ANTHONY
Height / Weight:
Height 5 ft 2 in
Actual Weight 49.555 kg
Pertinent Past Medical History: STAGE IV OVARIAN CA; PANCYTOPENIA
- Vital Signs / Lab Results
Temp Pulse Resp BP Pulse Ox
97.7 F 113 18 102/62 96
10/05/24 21:11 10/05/24 21:11 10/05/24 21:11 10/05/24 21:11 10/05/24 21:11
Lab Results - Hematology
10/05/24
14:00
WBC 21.5 H
Band Neutrophils 29 H
Lab Results - Chemistry
10/05/24
14:00
BUN 12
Creatinine 0.6
Albumin 3.1 L
10/05/24 10/05/24 10/05/24
15:30 19:07 20:02
Lactic Acid 4.6 H* Cancelled 1.4
Lab Results - Urine
07/29/25
15:30
Urine Nitrite (Reflex) Negative
Leukocyte Esterase Rfl 1+ A
Urine WBC (Reflex) 6-10
Ur Squamous Epith Cells 0-2
[2024-10-05] MEDS: TYLENOL 650 MG PO (22:43)
[2024-10-05] MEDS: ELIQUIS 5 MG PO (22:43)
[2024-10-05] MEDS: ATIVAN 1 MG PO (22:44)
[2024-10-05] MEDS: STERILE WATER FOR INJECTION 10 ML IV (22:44)
[2024-10-05] MEDS: MAXIPIME 1000 MG IV (22:44)
[2024-10-05] MEDS: VANCOCIN 200 IV (23:15)
[2024-10-06] VITALS (16 sets, daily range): BP systolic 78–106; BP diastolic 49–66; PULSE 110–121; O2SAT 96
[2024-10-06] MEDS: FLAGYL 500 MG 100 IV ×4 (00:15→23:29)
[2024-10-06] MEDS: NSS 1000 IV ×2 (01:16→20:27)
[2024-10-06] MEDS: MAXIPIME 1000 MG IV ×4 (05:07→23:21)
[2024-10-06] MEDS: STERILE WATER FOR INJECTION 10 ML IV ×4 (05:07→23:21)
[2024-10-06 05:20] LABS: Hematocrit 25.1 % (37.0-47.0); Hemoglobin 8.0 g/dL (12.0-16.0); Mean Corp Hgb Conc. 31.9 g/dL (33.0-37.0); Mean Corpuscular Volume 82.6 fL (81.0-99.0); Platelet Count 83 10^3/uL (130-400); Red Cell Dist. Width 18.7 % (11.5-14.5)
[2024-10-06] MEDS: VANCOCIN HCL 500 MG 100 IV ×2 (05:27→20:27)
[2024-10-06 05:28] LABS: Blood Urea Nitrogen 10 mg/dl (7-17); Calcium 7.2 mg/dl (8.4-10.2); Carbon Dioxide 22 mmol/L (22-30); Chloride 107 mmol/L (98-107); Estimated Creatinine Clearance 75 ml/min; Glucose 69 mg/dl (70-99); LDH 410 U/L (120-246); Potassium 3.5 mmol/L (3.5-5.1); Sodium 135 mmol/L (135-145); Total Protein 4.2 g/dl (6.3-8.2); eGFR > 60.00
[2024-10-06 06:20] LABS: Glucose - Point of Care 93 mg/dl (70-99)
--- NOTE | 2024-10-06 08:11 | PHA.VAN.FU ---
Vancomycin Assessment / Plan
- Assessment
Renal Function: Stable
WBC's are: Stable
In the past 24 hrs, patient has been: Afebrile
Concomitant Antimicrobials: cefepime, metronidazole
- Dosing Plan
Continue: Vanc 500mg Q12H
- Monitoring Plan
No level(s) ordered at this time: consider levels in next few days
- Follow Up
Pharmacy will continue to follow.
Vancomycin Follow UP
- -
Patient Age: 63
Patient Sex: Female
Vancomycin Day #: 2
Indication: Other
Requesting Provider: Monica Dunaway
Pertinent Antimicrobial Allergies:
penicillin - unknown from childhood
Height / Weight:
Height 5 ft 2 in
Actual Weight 49.555 kg
Pertinent Past Medical History: Stage IV Ovarian Cancer, Port
- Vital Signs / Lab Results
Temp Pulse Resp BP Pulse Ox
97.6 F 107 16 96/56 95
10/06/24 07:25 10/06/24 07:25 10/06/24 07:25 10/06/24 07:25 10/06/24 07:25
Lab Results - Hematology
10/05/24 10/06/24
14:00 04:35
WBC 21.5 H 20.2 H
Band Neutrophils 29 H
Lab Results - Chemistry
10/05/24 10/06/24
14:00 04:35
BUN 12 10
Creatinine 0.6 0.5 L
Estimated Creat Clear 75
Albumin 3.1 L
10/05/24 10/05/24 10/05/24
15:30 19:07 20:02
Lactic Acid 4.6 H* Cancelled 1.4
Lab Results - Urine
10/05/24
15:30
Urine Nitrite (Reflex) Negative
Leukocyte Esterase Rfl 1+ A
Ur Squamous Epith Cells 0-2
Microbiology Results
10/05/24 23:33 Streptococcus Rapid Screen - Final
Throat/Pharynx Rapid Strep Screen (Group A) Negative
--- NOTE | 2024-10-06 08:28 | VNURNOTE ---
Chart reviewed. Patient is current with [facility]. Will continue to follow hospital course and DC plans.
[2024-10-06 10:03] LABS: Glucose - Point of Care 76 mg/dl (70-99)
--- NOTE | 2024-10-06 10:05 | PTOTSP ---
Speech Language Pathology
Pt seen for clinical bedside swallow evaluation. P.O. trials of puree, regular solids, and thin liquids provided. Adequate mastication, bolus formation, and A-P transit noted with no oral residue. No overt signs of aspiration. Pt endorsed
needing to swallow 'harder' with food, liquid, and even saliva. thinks at least partially related to irritation from frequent vomiting. Do not suspect a true oropharyngeal dysphagia.
Recommend:
(1) Regular solids/thin liquids
(2) General aspiration precautions
(3) Meds as tolerated
(4) [employer] to follow, likely briefly
[2024-10-06 10:27] LABS: Body Fluid Second Tech CMB
[2024-10-06] MEDS: ELIQUIS PO (10:55)
[2024-10-06] MEDS: NSS IV (10:56)
[2024-10-06] MEDS: NSS 500 IV ×2 (13:44→20:02)
[2024-10-06] MEDS: TYLENOL 650 MG PO ×2 (14:38→20:27)
[2024-10-06 14:45] LABS: Hematocrit 24.1 % (37.0-47.0); Hemoglobin 7.8 g/dL (12.0-16.0); Mean Corp Hgb Conc. 32.4 g/dL (33.0-37.0); Mean Corpuscular Volume 83.1 fL (81.0-99.0); Platelet Count 82 10^3/uL (130-400); Red Cell Dist. Width 18.9 % (11.5-14.5)
--- NOTE | 2024-10-06 14:58 | W.PN.HOSP.TC ---
Today's Communication/Plan
-
See plan above.
Assessment / Plan
Assessment / Plan
Systemic Inflammatory Response Syndrome-with elevated lactic acid rule out sepsis.
-Await blood cultures and check third culture from port
- Negative monospot, strep ; throat culture pending
- Negative COVID
- Status post thoracentesis-pleural fluid was suggestive of transudative etiology. Culture pending.
-Continue vancomycin, cefepime and Flagyl pending culture data
- Normalized lactic acid level
Sinus Tachycardia
-Review of records indicate heart rate around 100-110s during prior admission
-Monitor on Telemetry
- TSH recently was 5.7. CT chest negative for PE. Echo with normal EF.
--Suspect possible sepsis more than sepsis
Stage IV Metastatic Ovarian Cancer
Peritoneal Carcinomatosis
Recurrent malignant Ascites / Pleural Effusion
-Last Chemo 2 weeks ago
- Rapid reaccumulation of ascitic fluid. Patient had 2 days ago. Check Doppler ultrasound of the abdomen.
- Will arrange for a tap tomorrow if still progressive and uncomfortable.
Looks like she is at a stage where she might need scheduled paracentesis
Right Lower Extremity DVT - September 2024
-Continue Eliquis-hold today with a drop in H&H
Anemia-normocytic
- Drop in H&H noted with a suspect may be dilutional. She is also on chemo causing anemia and possible thrombocytopenia. Follow H&H for now.
Code Status: Full Code
Anticipated Discharge: Within 24 hours
Subjective/Interval History
-
Date of Service: October 06, 2024
Feels abdomen is bloated and probably more fluid reaccumulation since her last tap on 10/04. No abdominal pain. No nausea vomiting.
Denies shortness of breath. No palpitations.
Denies dizziness.
Objective Data
-
Labs:
Laboratory Results
10/06/24 10/06/24
04:35 14:32
WBC 20.2 H 24.4 H
Hgb 8.0 L D 7.8 L
Hct 25.1 L 24.1 L
Plt Count 83 L D 82 L
Sodium 135
Potassium 3.5
Chloride 107
Carbon Dioxide 22
BUN 10
Creatinine 0.5 L
Glucose 69 L
Calcium 7.2 L
Vital Signs:
Vital Signs
Temp Pulse Resp BP Pulse Ox
97.6 F 102 18 94/56 100
10/06/24 11:15 10/06/24 14:29 10/06/24 11:15 10/06/24 14:29 10/06/24 11:15
Physical Exam
-
General: Comfortable
Respiratory: Clear to Auscultation and Non Labored Respirations; Negative Accessory Resp Muscle Use
Cardiac: Regular Rhythm, S1/S2 and Tachycardic
GI: Soft, Nontender, Normal Bowel Sounds and Distended
Musculoskeletal: No Edema
Neuro: AO x 3
Data Reviewed
-
Labs: Labs Reviewed by me
[2024-10-07] VITALS (37 sets, daily range): BP systolic 86–113; BP diastolic 53–69; BMI 21.2
--- NOTE | 2024-10-07 00:06 | W.PN.UPDATE ---
Update Note
Progress Note Update
Asked to see patient for hypotension. Patient blood pressure remains low after multiple boluses and initiation of midodrine. BP 88/52, HR 97, Resp 16, pulsox 97% on room air, temp 97.5. Patient unable to tolerate any more fluids due to ascites.
Transfer to IMU and initiate Levophed gtt.
--- NOTE | 2024-10-07 01:12 | PTCARENOTE ---
Patient's blood pressure at 1920 84/49, HR 106. 500 cc NSS bolus given over 1 hour per MD order. Patient complaining of dizziness, shortness of breath, and 'feeling off'. Oxygen 97% on RA. Reports 'feeling like my abdomen might burst' while getting
IVF. BP after bolus 91/53, HR 99. Blood pressure recheck at 2300 88/52. WEAVER TIRE CORD made aware, orders to transfer patient to IMU. Report given to RASHAD Hanks and patient transferred to [facility] with all belongings.
--- NOTE | 2024-10-07 01:19 | PTCARENOTE ---
Pt arrived from , IMU level of care in 3359. Pt upgraded for hypotension. On arrival, pts BP 91/60. Levophed ordered to maintain SBP > 90.
Pt Ox3, generalized weakness. SR, HR 90s. Trace LE edema. RA, pulse ox 96%. Breath sounds diminished t/o. Abdomen round, firm, tender to palpation. Hypoactive bowel sounds. R SQ port accessed, dressing intact. Safe environment maintained, call bradshaw
within reach, pt assisted with repositioning.
--- NOTE | 2024-10-07 02:20 | VATNOTE ---
R SUBQ PRT DRSG NON-OCCLUSIVE. RD PER PROTOCOL. SITE APPEARS WNL.
--- NOTE | 2024-10-07 03:23 | PTCARENOTE ---
SBP remains in low 90s. Levophed remains off at this time. Safe environment maintained, call bradshaw within reach.
[2024-10-07 04:28] LABS: Hematocrit 26.8 % (37.0-47.0); Hemoglobin 8.5 g/dL (12.0-16.0); Mean Corp Hgb Conc. 31.7 g/dL (33.0-37.0); Mean Corpuscular Volume 83.0 fL (81.0-99.0); Platelet Count 111 10^3/uL (130-400); Red Cell Dist. Width 18.9 % (11.5-14.5)
[2024-10-07] MEDS: MAXIPIME 1000 MG IV ×2 (04:50→11:04)
[2024-10-07] MEDS: STERILE WATER FOR INJECTION 10 ML IV ×2 (04:50→11:04)
[2024-10-07 05:00] LABS: Blood Urea Nitrogen 9 mg/dl (7-17); Calcium 6.9 mg/dl (8.4-10.2); Carbon Dioxide 24 mmol/L (22-30); Chloride 108 mmol/L (98-107); Estimated Creatinine Clearance 76 ml/min; Glucose 81 mg/dl (70-99); Potassium 3.0 mmol/L (3.5-5.1); Sodium 135 mmol/L (135-145); eGFR > 60.00
[2024-10-07] MEDS: VANCOCIN HCL 500 MG 100 IV (05:31)
[2024-10-07] MEDS: CALCIUM GLUCONATE 100 IV (06:20)
--- NOTE | 2024-10-07 09:01 | W.PN.HOSP.TC ---
Today's Communication/Plan
-
Planning for paracentesis both diagnostic and therapeutic
Consult ID.
Continue with current antibiotics
Increase doses of midodrine
Check serum cortisol
Assessment / Plan
Assessment / Plan
Systemic Inflammatory Response Syndrome-with elevated lactic acid suspect sepsis.
- Blood culture data is negative so far
- Negative monospot, strep ; throat culture pending
- Negative COVID
- Status post thoracentesis-pleural fluid was suggestive of transudative etiology. Culture pending.
-Continue vancomycin, cefepime and Flagyl pending culture data
- Normalized lactic acid level
- With persistent hypotension repeat lactic acid
- Obtain diagnostic paracentesis today with no obvious source
Hypotension requiring vasopressors suggestive of shock suspect septic shock.
Echocardiogram this month showed normal EF with no significant valvular abnormalities.
Continue with antibiotic treatment and vasopressors
Check random cortisol
Will consider repeat echocardiogram if no source of infection and persistent hypotension. She has ascites and pleural effusions so would like to rule out pericardial effusion
Sinus Tachycardia
-Review of records indicate heart rate around 100-110s during prior admission
-Monitor on Telemetry
- TSH recently was 5.7. CT chest negative for PE. Echo with normal EF.
--Suspect possible sepsis versus primary malignancy related
Stage IV Metastatic Ovarian Cancer
Peritoneal Carcinomatosis
Recurrent malignant Ascites / Pleural Effusion
-Last Chemo 2 weeks ago
- Rapid reaccumulation of ascitic fluid. Patient had 2 days ago. Check Doppler ultrasound of the abdomen.
- Will arrange for a tap today.
Looks like she is at a stage where she might need scheduled paracentesis
Right Lower Extremity DVT - September 2024
-Continue Eliquis-
Anemia-normocytic
- Drop in H&H noted with a suspect may be dilutional. She is also on chemo causing anemia and possible thrombocytopenia. Follow H&H for now.
Code Status: Full Code
Discussed with on the phone and went over clinicals including change in status yesterday, today's plan, and current treatments.
Total time spent on today's encounter was 52 minutes which included time spent in counseling the patient/family regarding diagnosis and treatment plan as listed above, goals of care, and symptom management. Case was discussed with nursing staff,
specialists, and care coordinators/case management. All labs and imaging personally reviewed by me. Remainder the time spent in detailed review of previous records, lab data, imaging, and other medical provider documentation.
Anticipated Discharge: > 48 hours
Subjective/Interval History
-
Date of Service: October 07, 2024
Transferred to U level of care last night because of persistent hypotension. Currently requiring low-dose Levophed.
She just feels weak and tired. She also not having much appetite because of her ascites accumulation. She also has some discomfort in her abdomen.
No fever or chills.
No shortness of breath or chest pain.
Denies dizziness
Objective Data
-
Labs:
Laboratory Results
10/07/24
04:04
WBC 27.1 H
Hgb 8.5 L
Hct 26.8 L
Plt Count 111 L D
Sodium 135
Potassium 3.0 L
Chloride 108 H
Carbon Dioxide 24
BUN 9
Creatinine 0.6
Glucose 81
Calcium 6.9 L*
Vital Signs:
Vital Signs
Temp Pulse Resp BP Pulse Ox
98.1 F 98 17 96/60 97
10/07/24 07:42 10/07/24 06:25 10/07/24 06:25 10/07/24 06:20 10/07/24 06:25
I&O
10/06/24 10/07/24 10/08/24
06:59 06:59 06:59
Intake Total 700 / 700
Balance 700 / 700
Physical Exam
-
General: No Apparent Distress
Respiratory: Clear to Auscultation and Non Labored Respirations; Negative Accessory Resp Muscle Use
Cardiac: Regular Rhythm, S1/S2 and Tachycardic
GI: Soft, Normal Bowel Sounds, Tender (Some discomfort in the left lower quadrant without rebound guarding rigidity) and Distended
Neuro: AO x 3
Psych: Calm; Negative Confused or Agitated
Data Reviewed
-
Labs: Labs Reviewed by me
--- NOTE | 2024-10-07 09:50 | PTCARENOTE ---
Patient taking to IR for Parenthesis
--- NOTE | 2024-10-07 10:00 | PN.CDI ---
CDI
- -
CDI:
Physician Documentation Request
Admit Date: 10/05/24 18:30
Dear Doctor Henri,
Patient admitted with suspected sepsis.
10/05 PN, 'Stage 1 sacral pressure injury, POA.'
Physician documentation of the type and location of wounds is required for compliant documentation. Based on the above clinical findings and your assessment, please provide the following in your progress note:
Type (etiology) of ulcer/wound:
- Pressure (decubitus) ulcer
- Other
- Unable to determine
For a pressure ulcer, please also include the stage* of the ulcer:
- Stage 1 - Skin intact, non-blanchable redness
- Stage 2 - Partial thickness loss of dermis, includes intact or open blister
- Stage 3 - Full thickness tissue not including bone, tendon or muscle
- Stage 4 - Full thickness tissue loss, including exposed bone, tendon or muscle
- Unstageable - Full thickness loss in which the base of the ulcer is covered by slough (yellow, mora, moya, green or brown) and/or eschar (mora, brown or black) in the wound bed.
- Unable to determine
Use of terms such as suspected, likely, concern for, or probable (associated with a specific diagnosis that is being evaluated, monitored, or treated as if it exists) are acceptable and can be coded in the inpatient setting, when documented at the
time of discharge.
Thank you,
Bridget DOBBS,RN,CCDS
CDI Specialist
Available via [place] text
Please use your independent medical judgment in providing your response.
*Source: National Pressure Ulcer Advisory Panel (NPUAP)
--- NOTE | 2024-10-07 10:24 | PN.CDI ---
CDI
- -
CDI:
Physician Documentation Request
Admit Date: 10/05/24 18:30
Dear Doctor Henri,
Patient admitted with suspected sepsis.
10/06 Nutrition note, 'Pt with temporal wasting, orbital area sunken in, apparent ribs, and protrusion of clavicle.
With observed muscle and fat wasting, as well as < 75% estimated needs > 1 month pt meets AND/ASPEN criteria for moderate protein calorie malnutrition of chronic illness.
Please provide in your note the diagnosis associated with the above nutrition findings and your assessment:
Moderate protein calorie malnutrition
Mild protein calorie malnutrition
Other (please specify)
[place] Criteria ([facility] Hospitalist 2017)
2 or more criteria must be present for either
non severe or severe malnutrition
Note that the criteria differs related to the
presence of an acute or chronic illness
Chronic Illness
Energy Intake Non Severe: <75% for >1 month
Severe: <75% for >1 month
Weight Loss Non Severe: 5% over 1 month
7.5% over 3 months
10% over 6 months
20% over 1 year
Severe: >5% over 1 month
>7.5% over 3 months
>10% over 6 months
>20% over 1 year
Body Fat Non Severe: Mild Loss
Severe: Severe Loss
Muscle Mass Non Severe: Mild Loss
Severe: Severe Loss
Fluid Accumulation Non Severe: Mild Accumulation
Severe: Moderate to severe
accumulation
Reduced Manager [employer] Strength Non Severe: N/A
Severe: Measurably reduced
Use of terms such as suspected, likely, concern for, or probable (associated with a specific diagnosis that is being evaluated, monitored, or treated as if it exists) are acceptable and can be coded in the inpatient setting, when documented at the
time of discharge.
Thank you,
Bridget Amend BSN,RN,CCDS
CDI Specialist
Available via [place] text
Please use your independent medical judgment in providing your response.
--- NOTE | 2024-10-07 10:33 | PN.CDI ---
CDI
- -
CDI:
Physician Documentation Request
Admit Date: 10/05/24 18:30
Dear Doctor Henri,
Patient admitted with suspected sepsis.
10/05 Lactic acid 4.6.
10/05 Patient received IV Lactated Ringer's.
Based on the above, please clarify in the progress notes, the appropriate diagnosis, if significant, that supports the above abnormalities and additional evaluation, monitoring and/or treatment rendered:
Lactic acidosis
Insignificant abnormal lab findings
Other
Use of terms such as suspected, likely, concern for, or probable (associated with a specific diagnosis that is being evaluated, monitored, or treated as if it exists) are acceptable and can be coded in the inpatient setting, when documented at the
time of discharge.
Thank you,
Bridget DOBBS,RN,CCDS
CDI Specialist
Available via [place] text
Please use your independent medical judgment in providing your response.
--- NOTE | 2024-10-07 10:36 | PTOTSP ---
Reviewed chart and noted pt transferred from 4th floor to IMU 3359. PT order was not continued uon transfer. Will need new order for PT (and OT ) when stable to resume therapy activities.
[2024-10-07] MEDS: FLAGYL 500 MG 100 IV (10:52)
--- NOTE | 2024-10-07 11:02 | CON.ID ---
Consultation
-
Date/Time Consultation Requested: October 07, 2024
Date/Time Consultation Performed: October 07, 2024 1100
Requesting Provider: Dr. Justin Álvarez
Performing Provider: Dr. Susan Lopez
Reason for Consultation: Ovarian cancer, possible sepsis
Chief Complaint / Past History
Chief Complaint
Tachycardia
History of Present Illness
63-year-old female with remote history of left breast cancer, recently diagnosed with stage IV ovarian cancer with malignant ascites and pleural effusions started currently on chemotherapy who presented from stress test lab to the hospital on September
due to tachycardia in the 140s. The stress test was for preop. White count was 21.5. She was hypotensive last night and therefore transferred to IMU. Patient denies fevers or chills. She has pain with swallowing. Per patient vomited
for 12 hours after receiving IV fluid bolus at the infusion center. The pain with swallowing could be from acidic stomach content. Her blood pressure tends to be low and she will get IV fluids. However the ascites then accumulates which pushed on
her stomach and therefore she would vomit. She cough or shortness of breath from recurrent malignant pleural effusions. No headache or sinus congestion. No diarrhea. No dysuria or flank pain. No rash. No specific joint pain. She requires
frequent paracentesis last being October 04 prior to hospitalization. She had another paracentesis today. No ill contacts.
Past History
Additional Past Medical History:
Stage IV ovarian cancer with peritoneal carcinomatosis, malignant pleural effusuon on chemotherapy
Right lower extremity DVT September 2024
History of left breast cancer status post lumpectomy, chemo and radiation
Port placement
Allergy History:
penicillin G Allergy (Verified 10/05/24 16:47)
Unknown from childhood
Medications Reviewed: Yes
Current Antibiotics:
Vancomycin
Cefepime
Metronidazole
Social History
Tobacco: Non-Smoker
Alcohol: None
Drug: None
Personal:
Living: With Family
Family History
Family History: Not Pertinent
Review of Systems
Review of Systems
General: Change in Appetite; Negative Fever or Chills
HEENT: Pharyngitis; Negative Sinus Problems or Headache
Cardiovascular: Negative Chest Pain
Respiratory: Negative Dyspnea or Cough
Gasteroenterology: Nausea; Negative Diarrhea
Genital / Urological: Negative Dysuria or Flank Pain
Endocrine: Weakness
Musculoskeletal: Negative Arthralgias
Skin / Hair / Nails: Negative Rash
Neurological: Negative Dizziness
All systems: All other systems were reviewed and were negative
Vital Signs
Temp Pulse Resp BP Pulse Ox
97.4 F 93 16 97/64 98
10/07/24 09:50 10/07/24 10:32 10/07/24 10:32 10/07/24 10:32 10/07/24 10:32
Physical Exam
Physical Exam
Constitutional: No Acute Distress, Chronically Ill and Non-toxic
Head: Other (No frontal or max or sinus tenderness.)
Eyes: No Conjunctival Hemorrhage and Sclera Anicteric
Pharynx: Benign
Oral: No Thrush
Cardiovascular: Regular Rate and S1/S2
Pulmonary: Non Labored and Other (Decreased breath sounds at the bases)
Gastrointestinal: Soft, Non Tender, Distended and Normal Bowel Sounds
Genito-Urinary: Negative CVA Tenderness
Extremities: Edema (Right lower extremity)
Musculoskeletal: Negative Joint Swelling or Joint Effusion
Neurological: AO x 3
Lines: Port (Right chest wall no erythema)
Lab / Diagnostic Study Results
10/07/24 04:04
10/07/24 04:04
Total Counted 100 10/05/24 14:00
Abs Neuts (Manual) 18.0 10^3/uL (1.4-6.5) H 10/05/24 14:00
Segmented Neutrophils 55 % (42-75) 10/05/24 14:00
Band Neutrophils 29 % (0-3) H 10/05/24 14:00
Lymphocytes (Manual) 6 % (20-51) L 10/05/24 14:00
PT 13.9 Sec (11.4-14.6) 10/05/24 14:00
INR 1.02 10/05/24 14:00
Lactic Acid 1.4 mmol/L (0.7-2.0) 10/05/24 20:02
Ur Squamous Epith Cells 0-2 /LPF (Few) 10/05/24 15:30
Microbiology Results
Micro:
10/05/24 23:33 Streptococcus Screen ([facility]) - Preliminary
Throat/Pharynx Culture in Progress
Streptococcus Rapid Screen - Final
Rapid Strep Screen (Group A) Negative
10/05/24 23:33 Throat Culture - Preliminary
Throat/Pharynx Usual Respiratory Orin
10/06/24 09:14 Body Fluid Culture - Preliminary
Pleural Fluid No Growth After 18-24 Hours
Gram Stain - Preliminary
10/05/24 22:53 MRSA Screen - Final
Nose No Methicillin Resistant Staphylococcus aureus isolated.
10/05/24 19:07 Blood Culture - Preliminary
Blood/Venous No Growth in 24 hours- Final report to follow
10/05/24 15:30 Blood Culture - Preliminary
Blood/Venous No Growth in 24 hours- Final report to follow
10/05/24 15:30 Blood Culture - Preliminary
Blood/Venous No Growth in 24 hours- Final report to follow
10/05/24 15:30 Urine Culture - Final
Urine
10/05/[address]: Examination is negative for pulmonary embolism. Bilateral pleural effusions, right greater than left. Ascites within the visualized upper abdomen, with findings suggestive of peritoneal carcinomatosis.
Assessment / Plan
# SIRS without infection
# Leukocytosis - recent Neulasta
# Stage IV ovarian ca with mets to pleura and peritoneum, on chemo
# Odynophagia - suspect post-emesis esophagitis
- UA neg.
- Blood cx's neg
- Chest CT R>L pleural effusion. Right pleural fluid transudate, cx neg
- Ascitic fluid with <250 polys, no SBP
- DC abx's.
-Continue supportive care.
[2024-10-07 11:06] LABS: Cortisol, Random 22.6 ug/dl
--- NOTE | 2024-10-07 11:19 | PTCARENOTE ---
10:15 Returned from IR s/p RT paracentesis with 1050 cc drained. Midodrine dose increased from 5 to 10 mg. 1st dose adm now pt on Maxipine and Flagyl, BP 92/52
[2024-10-07 11:34] LABS: Body Fluid Second Tech EM
--- NOTE | 2024-10-07 16:14 | PHA.VAN.FU ---
Vancomycin Assessment / Plan
- Assessment
Renal Function: Stable
WBC's are: Trending Up
In the past 24 hrs, patient has been: Afebrile
Concomitant Antimicrobials: cefepime, metronidazole
- Dosing Plan
Adjust Regimen to: dosing by level
Dosing Comments: no UOP recorded today - will pre-emptively adjust to DBL
- Monitoring Plan
Random Level: 10/08 0600
- Follow Up
Pharmacy will continue to follow.
Vancomycin Follow UP
- -
Patient Age: 63
Patient Sex: Female
Vancomycin Day #: 3
Indication: Other
Requesting Provider: Monica Dunaway
Pertinent Antimicrobial Allergies:
penicillin - unknown from childhood
Height / Weight:
Height 5 ft 2 in
Actual Weight 52.5 kg
Pertinent Past Medical History: Stage IV Ovarian Cancer, Port
- Vital Signs / Lab Results
Temp Pulse Resp BP Pulse Ox
98.1 F 93 16 123/75 98
10/07/24 15:40 10/07/24 13:41 10/07/24 10:32 10/07/24 13:41 10/07/24 10:32
Lab Results - Hematology
10/05/24 10/06/24 10/06/24
14:00 04:35 14:32
WBC 21.5 H 20.2 H 24.4 H
Band Neutrophils 29 H
10/07/24
04:04
WBC 27.1 H
Band Neutrophils
Lab Results - Chemistry
10/05/24 10/06/24 10/07/24
14:00 04:35 04:04
BUN 12 10 9
Creatinine 0.6 0.5 L 0.6
Estimated Creat Clear 75 76
Albumin 3.1 L
10/05/24 10/05/24 10/05/24
15:30 19:07 20:02
Lactic Acid 4.6 H* Cancelled 1.4
Microbiology Results
10/05/24 15:30 Blood Culture - Preliminary
Blood/Venous No Growth in 48 hours- Final report to follow
10/05/24 15:30 Blood Culture - Preliminary
Blood/Venous No Growth in 48 hours- Final report to follow
10/07/24 10:02 Gram Stain - Preliminary
Peritoneal Fluid
10/05/24 23:33 Streptococcus Screen ([facility]) - Preliminary
Throat/Pharynx Culture in Progress
Streptococcus Rapid Screen - Final
Rapid Strep Screen (Group A) Negative
10/05/24 23:33 Throat Culture - Preliminary
Throat/Pharynx Usual Respiratory Orin
10/06/24 09:14 Body Fluid Culture - Preliminary
Pleural Fluid No Growth After 18-24 Hours
Gram Stain - Preliminary
10/05/24 22:53 MRSA Screen - Final
Nose No Methicillin Resistant Staphylococcus aureus isolated.
10/05/24 19:07 Blood Culture - Preliminary
Blood/Venous No Growth in 24 hours- Final report to follow
10/05/24 15:30 Urine Culture - Final
Urine
--- NOTE | 2024-10-07 16:54 | CM ---
Patient seen at bedside in ICU. Patient lives alone with her daughter in a 2 story home with no DME. Patient is current with [facility] prior to admission. Patient PCP is Dr. Greenfield and uses the [facility] on [facility] in [place]. Patient for further
assessment and CM will follow for discharge planning needs.
Plan; home with [facility] vs SNF; pending medical treatment plan
[2024-10-07] MEDS: FLAGYL 500 MG IV (17:46)
[2024-10-07] MEDS: STERILE WATER FOR INJECTION IV (17:47)
[2024-10-07] MEDS: MAXIPIME IV (17:47)
[2024-10-07] MEDS: ELIQUIS 5 MG PO (20:13)
--- NOTE | 2024-10-07 21:23 | PTCARENOTE ---
Pt received at 19:00, Ox3, withdrawn, flat affect. SR 60s-70s. Trace LE edema. RA, pulse ox 96% and above. Diminished t/o. Abdomen round and distended. No BM. No urine output at this time, denies the urge to void. Safe environment maintained, call
bradshaw within reach.
[2024-10-08] VITALS (39 sets, daily range): BP systolic 84–133; BP diastolic 51–87; PULSE 78; BMI 20.5
[2024-10-08] MEDS: LEVOPHED 250 IV (02:42)
--- NOTE | 2024-10-08 04:03 | PTCARENOTE ---
SBP sustained < 90, levophed started at 2mcg/min. SBP now 90s. Purewick in place. Pt denies urge to void. Bladder scanned for 213ml.
[2024-10-08 04:13] LABS: Hematocrit 28.9 % (37.0-47.0); Hemoglobin 9.2 g/dL (12.0-16.0); Mean Corp Hgb Conc. 31.8 g/dL (33.0-37.0); Mean Corpuscular Volume 81.9 fL (81.0-99.0); Platelet Count 125 10^3/uL (130-400); Red Cell Dist. Width 19.4 % (11.5-14.5)
[2024-10-08 04:34] LABS: Absolute Neutrophils -Man Diff 24.4 10^3/uL (1.4-6.5); Anisocytosis Slight; Normal RBC Morphology No; Platelets Checked Yes; Total Cells Counted 100
[2024-10-08 04:42] LABS: ALT (SGPT) < 10 U/L (0-35); AST (SGOT) 34 U/L (14-36); Albumin 2.0 g/dl (3.5-5.0); Alkaline Phosphatase 168 U/L (38-126); Blood Urea Nitrogen 8 mg/dl (7-17); Calcium 6.9 mg/dl (8.4-10.2); Carbon Dioxide 24 mmol/L (22-30); Chloride 104 mmol/L (98-107); Estimated Creatinine Clearance 76 ml/min; Glucose 83 mg/dl (70-99); Potassium 3.1 mmol/L (3.5-5.1); Sodium 134 mmol/L (135-145); Total Protein 4.1 g/dl (6.3-8.2); eGFR > 60.00
--- NOTE | 2024-10-08 08:23 | PTOTSP ---
Reviewed chart and noted pt transferred from 4th floor to U 3359. PT order was not continued upon transfer. Will need new order for PT (and OT ) when stable to resume therapy activities.
[2024-10-08] MEDS: ELIQUIS 5 MG PO ×2 (08:51→21:16)
[2024-10-08] MEDS: TYLENOL 650 MG PO (08:51)
--- NOTE | 2024-10-08 09:28 | W.PN.ID1 ---
Date of Service
Date of Service: October 08, 2024
Today's Communication
Observe off abx.
ID will sign off.
Assessment / Plan
# SIRS without infection
# Leukocytosis - recent Neulasta
# Stage IV ovarian ca with mets to pleura and peritoneum, on chemo
# Odynophagia - suspect post-emesis esophagitis
- UA neg.
- Blood cx's neg
- Chest CT R>L pleural effusion. Right pleural fluid transudate, cx neg
- Ascitic fluid with <250 polys, no SBP, cx neg to date
- Magic mouthwash prn for odynophagia.
-Continue supportive care.
ID will sign off.
Chief Complaint
-: Other (SIRS)
Subjective / Review of Systems
No new complaints.
Difficulty swallowing meds due to pain, although slightly better.
Vital Signs / Physical Exam
Vital Signs
Vital Signs
Temp Pulse Resp BP Pulse Ox
97.8 F 87 9 105/75 98
10/08/24 07:00 10/08/24 08:48 10/08/24 08:00 10/08/24 08:48 10/08/24 08:00
Physical Exam
Constitutional: Chronically Ill
Eyes: Sclera Anicteric
Cardiovascular: Regular Rate and S1/S2
Pulmonary: Other (Decreased BS bases)
Gastrointestinal: Soft, Non Tender, Distended and Normal Bowel Sounds
Extremities: Edema (RLE)
Neurological: AO x 3
Lines: Port (RCW no erythema)
Objective Data
Lab Data
Lab Results
10/08/24 03:58
10/08/24 03:58
PT 13.9 Sec (11.4-14.6) 10/05/24 14:00
INR 1.02 10/05/24 14:00
Estimated Creat Clear 76 ml/min 10/08/24 03:58
Lactic Acid Cancelled 10/07/24 08:33
Total Bilirubin 0.3 mg/dl (0.2-1.3) 10/08/24 03:58
AST 34 U/L (14-36) 10/08/24 03:58
ALT < 10 U/L (0-35) 10/08/24 03:58
Alkaline Phosphatase 168 U/L (38-126) H 10/08/24 03:58
Most recent labs reviewed.
Micro Results:
10/05/24 19:07 Blood Culture - Preliminary
Blood/Venous No Growth in 48 hours- Final report to follow
10/05/24 15:30 Blood Culture - Preliminary
Blood/Venous No Growth in 48 hours- Final report to follow
10/05/24 15:30 Blood Culture - Preliminary
Blood/Venous No Growth in 48 hours- Final report to follow
10/07/24 10:02 Body Fluid Culture - Pending
Peritoneal Fluid Gram Stain - Preliminary
10/05/24 23:33 Streptococcus Screen ([facility]) - Preliminary
Throat/Pharynx Culture in Progress
Streptococcus Rapid Screen - Final
Rapid Strep Screen (Group A) Negative
10/05/24 23:33 Throat Culture - Preliminary
Throat/Pharynx Usual Respiratory Orin
10/06/24 09:14 Body Fluid Culture - Preliminary
Pleural Fluid No Growth After 18-24 Hours
Gram Stain - Preliminary
10/05/24 22:53 MRSA Screen - Final
Nose No Methicillin Resistant Staphylococcus aureus isolated.
10/05/24 15:30 Urine Culture - Final
Urine
10/05/[address]: Examination is negative for pulmonary embolism. Bilateral pleural effusions, right greater than left. Ascites within the visualized upper abdomen, with findings suggestive of peritoneal carcinomatosis.
[2024-10-08 09:32] LABS: Magnesium 1.4 mg/dl (1.6-2.3)
[2024-10-08] MEDS: CALCIUM GLUCONATE 100 IV (09:45)
[2024-10-08] MEDS: KCL 270 MEQ IV (11:23)
--- NOTE | 2024-10-08 12:17 | PTCARENOTE ---
Pt was rec'd in report from offgoing RN this am at 07:15, Levo infusing via right chest wall port as documented, see flowsheet. Pts VSS. AOx3 with very flat affect. Poor appetite. Pills taken whole with water, family at bedside encouraging PO
intake. Purewick in place, Levo titrated off, vitals remain stable. Pt annoyed with monitoring equipment, pulse ox monitor removed per pt request. Pt encouraged to keep turning self in bed, refusing RN to turn at this time. Plan disussed. Care
ongoing.
--- NOTE | 2024-10-08 12:26 | W.PN.HOSP.TC ---
Today's Communication/Plan
-
PT/OT
continue Midodrine
monitor off Abx
DC Planning
Tele Tx
Assessment / Plan
Assessment / Plan
Assessment:
Systemic Inflammatory Response Syndrome
- cultures negative
- para fluid no SBP
- ID evaluated - currently off Abx
Hypotension requiring vasopressors suggestive of shock - septic etiology ruled out
- Echocardiogram this month showed normal EF with no significant valvular abnormalities.
- continue Midodrine TID
Esophagitis
- continue magic mouthwash
Sinus Tachycardia
- Review of records indicate heart rate around 100-110s during prior admission
- Monitor on Telemetry
- TSH recently was 5.7. CT chest negative for PE. Echo with normal EF.
- Suspect possibly malignancy related
Stage IV Metastatic Ovarian Cancer
Peritoneal Carcinomatosis
Recurrent malignant Ascites/Pleural Effusion
- Last Chemo 2 weeks ago (Dr. Ellington)
- s/p Paracentesis 09/30, 10/04 and 10/07
- schedule OP paracentesis with Oncology service
Hypomagnesemia
Hypokalemia
Hypocalcemia
- replete lytes today, repeat labs
Right Lower Extremity DVT - September 2024
- continue Eliquis
Anemia
- normocytic
- Drop in H&H noted with a suspect may be dilutional. She is also on chemo causing anemia and possible thrombocytopenia. Follow H&H for now.
Thrombocytopenia related to malignancy and chemotherapy
DVT ppx: Eliquis
Code: Full
Anticipated Discharge: 24 - 48 hours
Subjective/Interval History
-
Date of Service: October 08, 2024
resting comfortably, no complaints
Objective Data
-
Labs:
Laboratory Results
10/08/24
03:58
WBC 28.4 H
Hgb 9.2 L
Hct 28.9 L
Plt Count 125 L
Sodium 134 L
Potassium 3.1 L
Chloride 104
Carbon Dioxide 24
BUN 8
Creatinine 0.5 L
Glucose 83
Calcium 6.9 L*
Total Bilirubin 0.3
AST 34
ALT < 10
Alkaline Phosphatase 168 H
Vital Signs:
Vital Signs
Temp Pulse Resp BP Pulse Ox
97.8 F 79 17 93/60 98
10/08/24 07:00 10/08/24 11:23 10/08/24 10:30 10/08/24 11:23 10/08/24 10:30
I&O
10/07/24 10/08/24 10/09/24
06:59 06:59 06:59
Intake Total 700 / 700 690 / 697.5 135.0 / 135.0
Output Total 200 / 200
Balance 700 / 700 490 / 497.5 135.0 / 135.0
Physical Exam
-
General: No Apparent Distress, Appears Chronically Ill and Cachectic
HEENT: Normocephalic and Atraumatic
Respiratory: Negative Wheezes
Cardiac: Regular Rhythm
GI: Soft
Musculoskeletal: No Edema
Neuro: AO x 3
Hematologic / Lymphatic: No Lymphadenopathy
Psych: Calm
Data Reviewed
-
Total Time Spent with Patient (in minutes): 42
Labs: Labs Reviewed by me
--- NOTE | 2024-10-08 15:57 | CM ---
Discharge POC: Therapy recommendation for SNF. Patient preference is [facility]. Referral forwarded.
--- NOTE | 2024-10-08 16:11 | PTCARENOTE ---
Pt has been assigned clean bed 409-1. Pt and family were updated. Pt with an episode of vomiting at 04:10, no complaints of nausea. Family at bedside helping patient, oral care provided.
--- NOTE | 2024-10-08 17:19 | PTCARENOTE ---
Pt declined 17:00 dose of Midodrine due to upset stomach, worried it would cause her to vomit. Pt transported onto new bed and sent to new room with RN and PCT, family accompanying with all belongings.
--- NOTE | 2024-10-08 19:36 | PTCARENOTE ---
Received pt from ICU. Pt with N/V/D. HR elevated to 140s but broke to low 100-110s. Pt oriented to room, oncoming nurse made aware.
[2024-10-08] MEDS: TIGAN 200 MG IM (20:27)
[2024-10-09 03:24] VITALS: BP 98/64
[2024-10-09 05:02] LABS: ALT (SGPT) < 10 U/L (0-35); AST (SGOT) 34 U/L (14-36); Albumin 2.2 g/dl (3.5-5.0); Alkaline Phosphatase 211 U/L (38-126); Blood Urea Nitrogen 9 mg/dl (7-17); Calcium 7.5 mg/dl (8.4-10.2); Carbon Dioxide 23 mmol/L (22-30); Chloride 106 mmol/L (98-107); Estimated Creatinine Clearance 76 ml/min; Glucose 75 mg/dl (70-99); Magnesium 1.5 mg/dl (1.6-2.3); Potassium 3.6 mmol/L (3.5-5.1); Sodium 135 mmol/L (135-145); Total Protein 4.4 g/dl (6.3-8.2); eGFR > 60.00
[2024-10-09 05:16] LABS: Hematocrit 28.8 % (37.0-47.0); Hemoglobin 9.4 g/dL (12.0-16.0); Mean Corp Hgb Conc. 32.6 g/dL (33.0-37.0); Mean Corpuscular Volume 81.6 fL (81.0-99.0); Platelet Count 152 10^3/uL (130-400); Red Cell Dist. Width 19.8 % (11.5-14.5)
[2024-10-09] MEDS: KCL 160 MEQ IV (06:12)
[2024-10-09 07:25] VITALS: BP 105/69
[2024-10-09] MEDS: MAGNESIUM SULFATE 100 IV (08:22)
[2024-10-09] MEDS: ELIQUIS 5 MG PO ×2 (09:13→20:57)
[2024-10-09] MEDS: MAGNESIUM OXIDE PO (09:20)
[2024-10-09] MEDS: OSCAL CAL 500 PO (09:20)
[2024-10-09] MEDS: ATIVAN 1 MG PO ×2 (09:21→21:10)
[2024-10-09 11:17] LABS: Nucleated Red Blood Cells % 0.1 %
[2024-10-09 11:18] LABS: Absolute Neutrophils -Man Diff 36.9 10^3/uL (1.4-6.5)
[2024-10-09 11:28] LABS: Anisocytosis 1+; Hypochromasia Slight; Normal RBC Morphology No; Ovalocytes Slight; Platelets Checked Yes; Total Cells Counted 100
[2024-10-09 11:47] VITALS: BP 109/67
--- NOTE | 2024-10-09 11:48 | W.PN.HOSP.TC ---
Today's Communication/Plan
-
replete lytes
monitor CBC off Abx
add PPI/Carafate
DC planning to SNF
Assessment / Plan
Assessment / Plan
Assessment:
Systemic Inflammatory Response Syndrome
- cultures negative
- para fluid no SBP
- ID evaluated - currently off Abx
Hypotension requiring vasopressors suggestive of shock - septic etiology ruled out
- Echocardiogram this month showed normal EF with no significant valvular abnormalities.
- continue Midodrine TID
Esophagitis
Hiatal hernia
- continue magic mouthwash prn
- add Carafate/PPI
Sinus Tachycardia
- Review of records indicate heart rate around 100-110s during prior admission
- Monitor on Telemetry
- TSH recently was 5.7. CT chest negative for PE. Echo with normal EF.
- Suspect possibly malignancy related
Stage IV Metastatic Ovarian Cancer
Peritoneal Carcinomatosis
Recurrent malignant Ascites/Pleural Effusion
- Last Chemo 2 weeks ago (Dr. Ellington)
- s/p Paracentesis 09/30, 10/04 and 10/07
- has scheduled OP paracentesis with Oncology service weekly
Hypomagnesemia
Hypokalemia
Hypocalcemia
- replete lytes via IV; eventually orally if esophagitis symptoms improve
Right Lower Extremity DVT - September 2024
- continue Eliquis
Anemia
- normocytic
- Drop in H&H noted with a suspect may be dilutional. She is also on chemo causing anemia and possible thrombocytopenia. Follow H&H for now.
Thrombocytopenia related to malignancy and chemotherapy
DVT ppx: Eliquis
Code: Full
Anticipated Discharge: > 48 hours
Subjective/Interval History
-
Date of Service: October 09, 2024
reports some discomfort with pills/food
reports abdomen feels softest in 1 week
Objective Data
-
Labs:
Laboratory Results
10/09/24
03:59
WBC 45.0 H*
Hgb 9.4 L
Hct 28.8 L
Plt Count 152 D
Sodium 135
Potassium 3.6
Chloride 106
Carbon Dioxide 23
BUN 9
Creatinine 0.5 L
Glucose 75
Calcium 7.5 L
Total Bilirubin 0.4
AST 34
ALT < 10
Alkaline Phosphatase 211 H
Vital Signs:
Vital Signs
Temp Pulse Resp BP Pulse Ox
97.9 F 102 16 109/67 99
10/09/24 11:47 10/09/24 11:47 10/09/24 11:47 10/09/24 11:47 10/09/24 11:47
I&O
10/08/24 10/09/24 10/10/24
06:59 06:59 06:59
Intake Total 690 / 697.5 295.0 / 295.0
Output Total 200 / 200 650 / 650
Balance 490 / 497.5 -355.0 / -355.0
Physical Exam
-
General: No Apparent Distress and Cachectic
HEENT: Normocephalic and Atraumatic
Respiratory: Negative Wheezes
Cardiac: Regular Rhythm and S1/S2
GI: Soft and Nondistended
Neuro: AO x 3
Psych: Calm
Data Reviewed
-
Total Time Spent with Patient (in minutes): 41
Labs: Labs Reviewed by me
[2024-10-09] MEDS: NSS (PRESERVATIVE FREE) 10 ML IV (12:05)
[2024-10-09] MEDS: PROTONIX IV 40 MG IV (12:05)
[2024-10-09] MEDS: CARAFATE SUSPENSION 1 GM PO ×3 (12:06→21:10)
[2024-10-09] MEDS: CALCIUM GLUCONATE 100 IV (12:09)
[2024-10-09 15:30] VITALS: BP 108/75
[2024-10-09 19:09] VITALS: BP 104/71
[2024-10-09 23:13] VITALS: BP 90/57
[2024-10-10 03:29] VITALS: BP 95/61
[2024-10-10 04:46] LABS: Hematocrit 25.2 % (37.0-47.0); Hemoglobin 8.1 g/dL (12.0-16.0); Mean Corp Hgb Conc. 32.1 g/dL (33.0-37.0); Mean Corpuscular Volume 81.8 fL (81.0-99.0); Platelet Count 169 10^3/uL (130-400); Red Cell Dist. Width 19.9 % (11.5-14.5)
[2024-10-10 04:54] LABS: ALT (SGPT) < 10 U/L (0-35); AST (SGOT) 32 U/L (14-36); Albumin 2.1 g/dl (3.5-5.0); Alkaline Phosphatase 188 U/L (38-126); Blood Urea Nitrogen 10 mg/dl (7-17); Calcium 7.8 mg/dl (8.4-10.2); Carbon Dioxide 26 mmol/L (22-30); Chloride 105 mmol/L (98-107); Estimated Creatinine Clearance 76 ml/min; Glucose 82 mg/dl (70-99); Magnesium 1.6 mg/dl (1.6-2.3); Potassium 4.0 mmol/L (3.5-5.1); Sodium 132 mmol/L (135-145); Total Protein 4.2 g/dl (6.3-8.2); eGFR > 60.00
[2024-10-10 07:00] VITALS: BP 102/64
[2024-10-10] MEDS: CARAFATE SUSPENSION 1 GM PO ×4 (09:24→21:16)
[2024-10-10] MEDS: PROTONIX IV 40 MG IV (09:25)
[2024-10-10] MEDS: NSS (PRESERVATIVE FREE) 10 ML IV (09:25)
[2024-10-10] MEDS: ELIQUIS 5 MG PO ×2 (09:26→20:31)
[2024-10-10 11:00] VITALS: BP 107/71
--- NOTE | 2024-10-10 11:41 | W.PN.HOSP.TC ---
Today's Communication/Plan
-
repeat para with labs tomorrow
monitor CBC - if stable/improving can dc to SNF in 24-48 hours
Assessment / Plan
Assessment / Plan
Assessment:
Systemic Inflammatory Response Syndrome
- cultures negative
- para fluid no SBP, thora fluid negative cultures
- ID evaluated - currently off Abx
Hypotension requiring vasopressors suggestive of shock - septic etiology ruled out
- Echocardiogram this month showed normal EF with no significant valvular abnormalities.
- continue Midodrine TID
Esophagitis
Hiatal hernia
- continue magic mouthwash prn
- continue Carafate/PPI
Sinus Tachycardia
- Review of records indicate heart rate around 100-110s during prior admission
- Monitor on Telemetry
- TSH recently was 5.7. CT chest negative for PE. Echo with normal EF.
- Suspect possibly malignancy related
Stage IV Metastatic Ovarian Cancer
Peritoneal Carcinomatosis
Recurrent malignant Ascites/Pleural Effusion
- Last Chemo 2 weeks ago (Dr. Ellington)
- s/p Paracentesis 09/30, 10/04 and 10/07
- has scheduled OP paracentesis with Oncology service weekly
- repeat Paracentesis with labs 10/11
Hypomagnesemia
Hypokalemia
Hypocalcemia
- replete lytes via IV; eventually orally as esophagitis symptoms improve
Right Lower Extremity DVT - September 2024
- continue Eliquis
Anemia
- normocytic
- Drop in H&H noted with a suspect may be dilutional. She is also on chemo causing anemia and possible thrombocytopenia. Follow H&H for now.
Thrombocytopenia related to malignancy and chemotherapy
DVT ppx: Eliquis
Code: Full
Dispo: to SNF ([facility]) when medically stable
Anticipated Discharge: 24 - 48 hours
Subjective/Interval History
-
Date of Service: October 10, 2024
reports some increase in distention of abdomen
no fevers
Objective Data
-
Labs:
Laboratory Results
10/10/24
04:18
WBC 42.5 H*
Hgb 8.1 L
Hct 25.2 L
Plt Count 169
Sodium 132 L
Potassium 4.0
Chloride 105
Carbon Dioxide 26
BUN 10
Creatinine 0.5 L
Glucose 82
Calcium 7.8 L
Total Bilirubin 0.4
AST 32
ALT < 10
Alkaline Phosphatase 188 H
Vital Signs:
Vital Signs
Temp Pulse Resp BP Pulse Ox
98.7 F 98 16 102/64 97
10/10/24 07:00 10/10/24 09:25 10/10/24 07:00 10/10/24 09:25 10/10/24 07:00
I&O
10/09/24 10/10/24 10/11/24
06:59 06:59 06:59
Intake Total 295.0 / 295.0 120 / 120
Output Total 650 / 650
Balance -355.0 / -355.0 120 / 120
Physical Exam
-
General: No Apparent Distress, Appears Chronically Ill and Cachectic
HEENT: Normocephalic and Atraumatic
Respiratory: Clear to Auscultation; Negative Wheezes
Cardiac: Regular Rhythm and S1/S2
GI: Nontender and Distended
Genito-urinary: No Costovertebral Tender
Neuro: AO x 3
Psych: Calm
Data Reviewed
-
Total Time Spent with Patient (in minutes): 42
Labs: Labs Reviewed by me
[2024-10-10] MEDS: TYLENOL 650 MG PO (12:25)
[2024-10-10 17:20] VITALS: BP 97/55
[2024-10-10 19:42] VITALS: BP 90/56
[2024-10-10] MEDS: OSCAL CAL 500 PO ×2 (20:31→22:16)
[2024-10-10] MEDS: ATIVAN 1 MG PO (21:16)
[2024-10-10 23:55] VITALS: BP 99/65
[2024-10-11] VITALS (10 sets, daily range): BP systolic 89–108; BP diastolic 52–72; PULSE 96–133; O2SAT 97–99
[2024-10-11 06:49] LABS: Hematocrit 27.4 % (37.0-47.0); Hemoglobin 8.8 g/dL (12.0-16.0); Mean Corp Hgb Conc. 32.1 g/dL (33.0-37.0); Mean Corpuscular Volume 82.5 fL (81.0-99.0); Platelet Count 233 10^3/uL (130-400); Red Cell Dist. Width 20.0 % (11.5-14.5)
[2024-10-11 07:11] LABS: ALT (SGPT) < 10 U/L (0-35); AST (SGOT) 39 U/L (14-36); Albumin 2.3 g/dl (3.5-5.0); Alkaline Phosphatase 234 U/L (38-126); Blood Urea Nitrogen 10 mg/dl (7-17); Calcium 7.5 mg/dl (8.4-10.2); Carbon Dioxide 26 mmol/L (22-30); Chloride 104 mmol/L (98-107); Estimated Creatinine Clearance 76 ml/min; Glucose 63 mg/dl (70-99); Potassium 3.9 mmol/L (3.5-5.1); Sodium 131 mmol/L (135-145); Total Protein 4.5 g/dl (6.3-8.2); eGFR > 60.00
[2024-10-11] MEDS: CARAFATE SUSPENSION 1 GM PO ×4 (08:10→21:01)
[2024-10-11] MEDS: ELIQUIS 5 MG PO ×2 (08:10→19:59)
[2024-10-11] MEDS: MAGNESIUM OXIDE 500 MG PO (08:10)
[2024-10-11] MEDS: OSCAL CAL 500 500 MG PO (08:11)
[2024-10-11] MEDS: PROTONIX IV 40 MG IV (08:11)
[2024-10-11] MEDS: NSS (PRESERVATIVE FREE) 10 ML IV (08:12)
--- NOTE | 2024-10-11 12:48 | W.PN.HOSP.TC ---
Today's Communication/Plan
-
Paracentesis today
DC planning
Assessment / Plan
Assessment / Plan
Assessment:
Systemic Inflammatory Response Syndrome
- cultures negative
- para fluid no SBP, thora fluid negative cultures
- ID evaluated - currently off Abx
Hypotension requiring vasopressors suggestive of shock - septic etiology ruled out
- Echocardiogram this month showed normal EF with no significant valvular abnormalities.
- continue Midodrine TID
Esophagitis
Hiatal hernia
- continue magic mouthwash prn
- continue Carafate/PPI -increase PPI to twice daily
Sinus Tachycardia
- Review of records indicate heart rate around 100-110s during prior admission
- Monitor on Telemetry
- TSH recently was 5.7. CT chest negative for PE. Echo with normal EF.
- Suspect possibly malignancy related
Stage IV Metastatic Ovarian Cancer
Peritoneal Carcinomatosis
Recurrent malignant Ascites/Pleural Effusion
- Last Chemo 2 weeks ago (Dr. Ellington)
- s/p Paracentesis 09/30, 10/04 and 10/07
- has scheduled OP paracentesis with Oncology service weekly
- repeat Paracentesis with labs 10/11
Hypomagnesemia
Hypokalemia
Hypocalcemia
- Improved magnesium and calcium. Potassium okay
Hyponatremia-intermittent. Suspect may have been multifactorial including nausea, situs. Will follow for now.
Right Lower Extremity DVT - September 2024
- continue Eliquis
Anemia
- normocytic
- Drop in H&H noted with a suspect may be dilutional. She is also on chemo causing anemia and possible thrombocytopenia. Follow H&H for now.
Thrombocytopenia related to malignancy and chemotherapy
DVT ppx: Eliquis
Code: Full
Dispo: to SNF ([facility]) -aim for DC tomorrow after paracentesis today
Anticipated Discharge: Within 24 hours
Subjective/Interval History
-
Date of Service: October 11, 2024
Patient noticed swallowing difficulty with big pills. She had dysphagia evaluation on the recent visit which thought may be related to severe GERD and was prescribed PPI twice daily. Seen by speech on this admission and cleared for regular diet.
Abdominal distended but denies any pain.
No fever or chills.
Feels that she could benefit from rehab.
Denies shortness of breath at rest. Some exertional shortness of breath noted. No chest pain.
Objective Data
-
Labs:
Laboratory Results
10/11/24
06:02
WBC 44.2 H*
Hgb 8.8 L
Hct 27.4 L
Plt Count 233 D
Sodium 131 L
Potassium 3.9
Chloride 104
Carbon Dioxide 26
BUN 10
Creatinine 0.5 L
Glucose 63 L
Calcium 7.5 L
Total Bilirubin 0.4
AST 39 H
ALT < 10
Alkaline Phosphatase 234 H
Vital Signs:
Vital Signs
Temp Pulse Resp BP Pulse Ox
97.9 F 84 16 91/61 98
10/11/24 12:15 10/11/24 12:15 10/11/24 12:15 10/11/24 12:15 10/11/24 12:15
I&O
10/10/24 10/11/24 10/12/24
06:59 06:59 06:59
Intake Total 120 / 120 1140 / 1140
Balance 120 / 120 1140 / 1140
Physical Exam
-
General: Comfortable
Respiratory: Non Labored Respirations and Decreased Breath Sounds (LEFT BASE); Negative Accessory Resp Muscle Use
Cardiac: Regular Rhythm and S1/S2
GI: Soft, Nondistended and Distended
Musculoskeletal: Edema, Right Lower Extrem
Neuro: AO x 3
Psych: Calm
Data Reviewed
-
Labs: Labs Reviewed by me
[2024-10-11 13:18] LABS: Body Fluid Second Tech AMA
--- NOTE | 2024-10-11 13:53 | CM ---
Addendum entered by Lucrecia Ortiz 10/11/24 16:03:
[facility] have declined patient and patient and spouse made aware, other options reviewed from list of skilled rehab options in area however patient and spouse stated they wanted to review list further.
Plan: skilled placement.
Original Note:
Chart reviewed and plan is skilled placement at [facility] referral sent to [facility] however admissions at [facility] to review plan for ongoing Paracentesis at rehab and need to see if physician has any plans for chemo.
Plan; To follow up with admissions at [facility].
[2024-10-11] MEDS: CALCIUM CARBONATE ORAL SUSP 500 MG PO (19:59)
[2024-10-11] MEDS: PROTONIX 40 MG PO (19:59)
[2024-10-11] MEDS: ATIVAN 1 MG PO (21:01)
[2024-10-12] VITALS (8 sets, daily range): BP systolic 90–101; BP diastolic 54–63
[2024-10-12 05:29] LABS: Hematocrit 27.3 % (37.0-47.0); Hemoglobin 8.7 g/dL (12.0-16.0); Mean Corp Hgb Conc. 31.9 g/dL (33.0-37.0); Mean Corpuscular Volume 82.7 fL (81.0-99.0); Platelet Count 280 10^3/uL (130-400); Red Cell Dist. Width 20.0 % (11.5-14.5)
[2024-10-12 05:39] LABS: Blood Urea Nitrogen 10 mg/dl (7-17); Calcium 7.8 mg/dl (8.4-10.2); Carbon Dioxide 27 mmol/L (22-30); Chloride 104 mmol/L (98-107); Estimated Creatinine Clearance 76 ml/min; Glucose 82 mg/dl (70-99); Magnesium 1.6 mg/dl (1.6-2.3); Potassium 4.0 mmol/L (3.5-5.1); Sodium 130 mmol/L (135-145); eGFR > 60.00
--- NOTE | 2024-10-12 06:34 | W.CON.GYNONC ---
Chief Complaint
-
tachycardia/weakness
History of Present Illness
63�year�old�G1,�P1�menopausal�white�woman�who�was�admitted�to[facility]with�abdominal�distention�and
discomfort.�On�the�CT�there�was�a�large�heterogeneous�mixed�cystic�and�solid�lesions�in�the�right�adnexa�concerning�for�ovarian
malignancy�larger�lesion�on�the�right�measured�18.7�cm�there�is�associated�omental�caking�thickening�and�enhancement�which
may�represent�metastatic�disease�there�are�numerous�small�nodules�within�mesentery�suspicious�for�mesenteric�implants.�There�is associated�moderate�ascites�and�moderate�right�pleural�effusion.�CA125�=8830,�CEA�45
Patient�underwent�omental�biopsy�[facility]��that�showed�metastatic�high�grade�serous�carcinoma She�underwent�paracentesis�as�well�as�right�thoracentesis�both�of�which�resulted�as�malignant�consistent�with�high�grade�serous carcinoma
Patient received first cycle of chemo with taxol, carbo as outpatient on 09/24
she was admitted 10/05 as she went to have stress test and noted to have tachycardia, was sent to ED.while in hospital last week she has had paracentheis and thoracenthesis for ascites and pleural effusion, she is weak, tolerates po poorly.
Past�medical�history�hypercholesterolemia,�breast�cancer�2011�treated�with�surgery�chemotherapy�dd�AC�followed�by�weekly�Taxol, radiation�and�antiestrogen�therapy.
Past�surgical�history�significant�for�right�kidney�surgery�at�age�20�for�kidney�stone,�left�kidney�stone�surgery�for�abnormal�ureter ureteral�constructions,�C�section
Past�gynecologic�history�term��36�years�ago�delivered�by�C�section�menopause�at�age�49 Family�history�father�with�stomach�cancer
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
Medical History
Allergies
Allergies reflect when allergies were last updated in [facility].
penicillin G Allergy (Verified 10/05/24 16:47)
Unknown from childhood
Physical Exam
Vital Signs / I&O
Vitals
Temp Pulse Resp BP Pulse Ox
97.8 F 92 16 90/54 97
10/12/24 03:12 10/12/24 03:12 10/12/24 03:12 10/12/24 03:12 10/12/24 03:12
I&O
10/09/24 10/10/24 10/11/24 10/12/24
06:59 06:59 06:59 06:59
Intake Total 295.0 / 295.0 120 / 120 1140 / 1140 780 / 780
Output Total 650 / 650
Balance -355.0 / -355.0 120 / 120 1140 / 1140 780 / 780
Physical Exam
General:Chronically�ill�appearing.�Malnourished/cachectic�in�appearance.� Head:�Atraumatic�and�normocephalic.�Bilateral�temporal�wasting Neck:�No�thyromegaly.�No�cervical�lymphadenopathy.
Lungs:�Clear�to�auscultation.�Good�air�movement�bilaterally.�Incision�for�port�placement�appears�intact�dressing�was�removed Cardiac:�Regular�rate.�Regular�rhythm.�No�murmurs�appreciated.
Abdomen:�Abdomen�is�soft.�Non�tender�to�palpation.�Ascites�is�present.Mass�palpated:�Right�lower�abdomen.Distension present. Extremities:�No�edema. Hematologic/Lymphatic:�No�palpable�lymphadenopathy.
Musculoskeletal:�Normal�range�of�motion.�Strength�and�Tone�are�normal. Skin:Non�jaundiced.�No�petechia.�No�purpura. Neurologic:�Speech�is�fluent.�Normal�gait�and�station.�Cranial�nerves�intact.
Results
-
10/12/24 05:01
10/12/24 05:01
Impression / Plan
-
This�patient�has�stage�Mary�high�grade�serous�carcinoma�probably�arising�from�right�ovary�with�evidence�of�right�pleural�effusion.
Given�advanced�stage�I�have�recommended�neoadjuvant�chemotherapy,�combination�of�Taxol�carboplatin�and�bevacizumab�will�be administered�likely�for�3-�4�cycles�before�interval�cytoreductive�surgery�is�performed. Bevacizumab was held during first
cycle due to new diagnosis of DVT.
germline testing performed shows she has BRCA 1 mutation
she is scheduled for chemo 10/15 at [facility] (Taxol/carbo and Bevacizumab). She really should receive this chemo treatment, otherwise she will continue to develop ascites and pleural effusion making her recovery harder. we should
consider administering this treatment while inpatient before sending her to SNF, while in SNF she cannot receive chemo. I will ask [facility] Onc to see patient and comment.
Patient�has�a�new�diagnosis�of�right�lower�extremity�DVT�not�surprising�given�the�extent�of�her�disease�and�was�on�enoxaparin during�the�course�of�hospitalization�and�is�now�on�therapeutic�Eliquis.
Annelise�and�medical�oncology�along�with�me�during�the�course�of�treatment
[2024-10-12] MEDS: CARAFATE SUSPENSION 1 GM PO ×4 (08:05→21:07)
[2024-10-12] MEDS: CALCIUM CARBONATE ORAL SUSP 500 MG PO ×2 (08:05→19:39)
[2024-10-12] MEDS: ELIQUIS 5 MG PO ×2 (08:06→19:39)
[2024-10-12] MEDS: PROTONIX 40 MG PO ×2 (08:06→19:39)
[2024-10-12] MEDS: MAGNESIUM OXIDE PO (08:13)
--- NOTE | 2024-10-12 12:27 | CON.ONC ---
Impression
Impression
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
RLE DVT on DOAC
hypotension
electrolyte derangements
leukocytosis -s/p GCSF in C1 chemo
anemia
thrombocytopenia -resolved
Plan
Plan
Poor PS and poor nutritional status risk of giving chemotherapy at this point would outweigh benefit so recommend rehab then reevaluate once PS improves upon return home
continue prn paracentesis/thoracentesis and symptom support
Pt should have OP follow up with medical oncology or [employer]ER oncology prior to next cycle of chemotherapy in the office
Dr. العراقي is planning for chemotherapy followed by interval cytoreductive surgery
Patient History
History of Present Illness
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 She was scheduled for an OP stress test 10/05, however, due to tachycardia she was
referred to the ER. She reports that after receiving her 1st cycle of carbo/taxol on 09/24/2024 that she was unable to eat or drink adequately due to nausea and vomiting. She feels that the vomiting caused throat pain which further affected her
ability to eat and drink. She lives alone and has been spending most of her day in bed, however, her best friend/ex- lives close by and helps as much as possible. She denies any fever or chills. Her SOB is unchanged since diagnosis. She
continues to undergo therapeutic paracentesis and thoracentesis for recurrent malignant ascites and pleural effusion. She denies any uncontrolled pain or bleeding.
Pt best friend/ex at bedside during visit provided updates and questions answered.
Past-Medical/Surgical History
PMH breast cancer, hyperthyroidism, breast cancer around 2011( treated with surgery, chemo , radiation, and anti-estrogen therapy Dr. Velazquez and Dr. Reyna Rios at [facility])
PSH left lumpectomy
Social denies smoking, ETOH or recreational drugs. Lives alone
Family father from stomach cancer.
Patient Medication
�Medication �Instructions �Recorded �Confirmed �Last Taken �Type
sucralfate 100 mg/mL oral 1 g (10 mL) PO ACHS #1,000 mL 09/15/24 10/05/24 09/29/24 Rx
suspension
apixaban 5 mg tablet (Eliquis) 5 mg PO DAILY Blood Clot 10/05/24 10/05/24 Unknown History
Prevention/Tx
atorvastatin 20 mg tablet (Lipitor) 20 mg PO DAILY High Cholesterol 10/05/24 10/05/24 Unknown History
lorazepam 1 mg tablet 1 mg PO BIDPRN PRN anixety 10/05/24 10/05/24 Unknown History
ondansetron HCl 4 mg tablet 4 mg PO Q6HPRN PRN nausea and 10/05/24 10/05/24 Unknown History
vomiting
polyethylene glycol 3350 17 gram 17 g PO DAILYPRN PRN constipation 10/05/24 10/05/24 Unknown History
oral powder packet
tramadol 50 mg tablet 50 mg PO TIDPRN PRN moderartes 10/05/24 10/05/24 Unknown History
pains
Active Medications
Generic Name Dose Route Start Last Admin
Trade Name Freq PRN Reason Stop Dose Admin
Acetaminophen 650 mg 10/05/24 21:03 10/10/24 12:25
Acetaminophen 325 Mg Tablet PO 11/02/24 21:02 650 mg
Q4HPRN PRN Administration
mild pain/ fever>100.5F
Apixaban 5 mg 10/05/24 21:03 10/12/24 08:06
Apixaban (Eliquis) 5 Mg Tablet PO 11/02/24 21:02 5 mg
BID FLORINDA Administration
Calcium Carbonate 500 mg 10/11/24 20:00 10/12/24 08:05
Calcium Carbonate Oral Suspension (500 Mg/5 Ml) Cup PO 11/08/24 19:59 500 mg
BID FLORINDA Administration
Heparin Sodium (Porcine) 500 unit 10/05/24 19:30 10/12/24 10:09
Heparin Flush Pf (100 Unit/Ml) 5 Ml Syringe IV 11/02/24 19:29 500 unit
PER PROTOCOL FLORINDA Administration
Lorazepam 1 mg 10/05/24 21:03 10/11/24 21:01
Lorazepam 1 Mg Tablet PO 11/02/24 21:02 1 mg
BIDPRN PRN Administration
anixety
Magnesium Oxide 500 mg 10/09/24 09:00 10/12/24 08:13
Magnesium Oxide 500 Mg Tablet PO 11/06/24 08:59 Not Given
DAILY FLORINDA
Midodrine 10 mg 10/07/24 11:00 10/12/24 11:45
Midodrine 5 Mg Tablet PO 11/04/24 10:59 10 mg
TID @ 0800,1200,1700 FLORINDA Administration
Multi-Ingredient Mouthwash/Gargle 5 ml 10/08/24 09:04
Magic (Miracle) Mouthwash 90 Ml Bottle PO
Q4H PRN
Oropharyngeal pain
Pantoprazole Sodium 40 mg 10/11/24 20:00 10/12/24 08:06
Pantoprazole 40 Mg Delayed Release Tablet PO 11/08/24 19:59 40 mg
BID FLORINDA Administration
Sodium Chloride 0 flush 10/05/24 22:00
Sodium Chloride 0.9% (Flush) Syringe IV 11/02/24 21:59
PER PROTOCOL FLORINDA
Sucralfate 1 gm 10/09/24 11:30 10/12/24 11:45
Sucralfate (Carafate) 1 Gm/10 Ml Cup PO 11/06/24 11:29 1 gm
ACHS FLORINDA Administration
Trimethobenzamide HCl 200 mg 10/08/24 18:03 10/08/24 20:27
Trimethobenzamide 200 Mg/2 Ml Vial IM 11/05/24 18:02 200 mg
Q6HPRN PRN Administration
nausea/vomiting
Review of Systems
-
ROS is notable for HPI, otherwise negative
Physical Exam
-
General: No Apparent Distress, Appears Chronically Ill and Cachetic
HEENT: Moist Mucous Membranes; Negative Jaundice
Cardiology: S1 and S2
Pulmonary: Other (diminished bilateral bases. unlabored)
GI: Soft and Distended
Extremities: Pulses Present and Edema (b/l LE )
Neurology: Non Focal
Skin: Warm
Psych: Calm
Labs
Lab Results
WBC 37.6 10^3/uL (4.8-10.8) H 10/12/24 05:01
RBC 3.30 10^6/uL (4.20-5.40) L 10/12/24 05:01
Hgb 8.7 g/dL (12.0-16.0) L 10/12/24 05:01
Hct 27.3 % (37.0-47.0) L 10/12/24 05:01
MCV 82.7 fL (81.0-99.0) 10/12/24 05:01
MCH 26.4 pg (27.0-31.0) L 10/12/24 05:01
MCHC 31.9 g/dL (33.0-37.0) L 10/12/24 05:01
RDW 20.0 % (11.5-14.5) H 10/12/24 05:01
Plt Count 280 10^3/uL (130-400) D 10/12/24 05:01
MPV 9.6 fL (7.4-10.4) 10/12/24 05:01
Creatinine 0.5 mg/dL (0.6-1.0) L 10/12/24 05:01
Vital Signs
Vital Signs
Temp Pulse Resp BP Pulse Ox
97.5 F 89 16 95/60 96
10/12/24 11:16 10/12/24 11:16 10/12/24 11:16 10/12/24 11:16 10/12/24 11:16
--- NOTE | 2024-10-12 15:15 | W.PN.HOSP.TC ---
Today's Communication/Plan
-
DC
Assessment / Plan
Assessment / Plan
Assessment:
Systemic Inflammatory Response Syndrome
- cultures negative
- para fluid no SBP, thora fluid negative cultures
- ID evaluated - currently off Abx
Hypotension requiring vasopressors suggestive of shock - septic etiology ruled out
- Echocardiogram this month showed normal EF with no significant valvular abnormalities.
- continue Midodrine TID
Esophagitis
Hiatal hernia
- continue magic mouthwash prn
- continue Carafate/PPI
Sinus Tachycardia
- Review of records indicate heart rate around 100-110s during prior admission
- Monitor on Telemetry
- TSH recently was 5.7. CT chest negative for PE. Echo with normal EF.
- Suspect possibly malignancy related
- Improved
Stage IV Metastatic Ovarian Cancer
Peritoneal Carcinomatosis
Recurrent malignant Ascites/Pleural Effusion
- Last Chemo 2 weeks ago (Dr. Ellington)
- s/p Paracentesis 09/30, 10/04 , 10/07, 10/11
- has scheduled OP paracentesis with Oncology service weekly
- Appreciate RN MDS COORDINATOR oncology and medical oncology input-holding chemotherapy for this Friday to improve functional status.
Hypomagnesemia
Hypokalemia
Hypocalcemia
- Improved magnesium and calcium. Potassium okay
Hyponatremia-intermittent. Suspect may have been multifactorial including nausea, situs. Will follow for now.
Right Lower Extremity DVT - September 2024
- continue Eliquis
Anemia
- normocytic
- Drop in H&H noted with a suspect may be dilutional. She is also on chemo causing anemia and possible thrombocytopenia. Follow H&H for now.
Thrombocytopenia related to malignancy and chemotherapy
DVT ppx: Eliquis
Code: Full
Dispo: to SNF when bed available
Anticipated Discharge: Today
Subjective/Interval History
-
Date of Service: October 12, 2024
Feels ok today
S/P paracentesis yesterday , abdomen feels ok. Able to tolerated oral diet.
No fevers. No shortness of breath at rest.
Denies dizziness. Still feels weak.
Objective Data
-
Labs:
Laboratory Results
10/12/24
05:01
WBC 37.6 H
Hgb 8.7 L
Hct 27.3 L
Plt Count 280 D
Sodium 130 L
Potassium 4.0
Chloride 104
Carbon Dioxide 27
BUN 10
Creatinine 0.5 L
Glucose 82
Calcium 7.8 L
Vital Signs:
Vital Signs
Temp Pulse Resp BP Pulse Ox
97.5 F 89 16 95/60 97
10/12/24 11:16 10/12/24 11:16 10/12/24 11:16 10/12/24 11:16 10/12/24 12:51
I&O
10/11/24 10/12/24 10/13/24
06:59 06:59 06:59
Intake Total 1140 / 1140 780 / 780
Balance 1140 / 1140 780 / 780
Physical Exam
-
General: Comfortable
Respiratory: Non Labored Respirations and Decreased Breath Sounds (left base); Negative Wheezes, Crackles or Accessory Resp Muscle Use
Cardiac: Regular Rhythm and S1/S2
GI: Soft and Nontender
Neuro: AO x 3
Psych: Calm and Confused
Data Reviewed
-
Labs: Labs Reviewed by me
[2024-10-12] MEDS: ATIVAN 1 MG PO (16:10)
--- NOTE | 2024-10-12 17:15 | CM ---
Spoke with patient who stated that her spouse is still deciding on facility. Patient made aware that she is medically cleared, therefore decision will have to be made. No auth will be need for rehab.
Plan: Case management will continue to follow and assist with discharge planning. SNF tomorrow. Will f/u with spouse regarding selection.
[2024-10-13 03:33] VITALS: BP 89/55
[2024-10-13 07:15] VITALS: BP 96/61
[2024-10-13] MEDS: CALCIUM CARBONATE ORAL SUSP 500 MG PO ×2 (08:36→19:50)
[2024-10-13] MEDS: ELIQUIS 5 MG PO ×2 (08:36→19:51)
[2024-10-13] MEDS: CARAFATE SUSPENSION 1 GM PO ×3 (08:36→16:20)
[2024-10-13] MEDS: PROTONIX 40 MG PO ×2 (08:36→19:51)
[2024-10-13] MEDS: MAGNESIUM OXIDE PO (08:43)
[2024-10-13] MEDS: ATIVAN 1 MG PO (08:54)
--- NOTE | 2024-10-13 08:57 | W.PN.ONC2 ---
Today's Communication / Plan
-
discharge planning -optimize performance status and nutritional status
OP follow up will be arranged upon discharge
Impression
Impression
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
RLE DVT on DOAC
hypotension
electrolyte derangements
leukocytosis -s/p GCSF in C1 chemo
anemia
thrombocytopenia -resolved
Plan
Plan
Poor PS and poor nutritional status risk of giving chemotherapy at this point would outweigh benefit so recommend rehab then reevaluate once PS improves upon return home
continue prn paracentesis/thoracentesis and symptom support
Pt should have OP follow up with medical oncology or EATING DISORDER PSYCHOLOGIST oncology prior to next cycle of chemotherapy in the office
Dr. العراقي is planning for chemotherapy followed by interval cytoreductive surgery
Subjective/Objective
Subjective
no new complaints
trying to push calorie intake with focus on protein. still eating approximately '1 cup' of food with each meal
small BM yesterday
Vital Signs:
Vital Signs
Temp Pulse Resp BP Pulse Ox
98.1 F 101 18 96/61 98
10/13/24 07:15 10/13/24 07:15 10/13/24 07:15 10/13/24 07:15 10/13/24 07:15
Lab Results:
Laboratory Data
WBC 37.6 10^3/uL (4.8-10.8) H 10/12/24 05:01
Hgb 8.7 g/dL (12.0-16.0) L 10/12/24 05:01
Plt Count 280 10^3/uL (130-400) D 10/12/24 05:01
PT 13.9 Sec (11.4-14.6) 10/05/24 14:00
INR 1.02 10/05/24 14:00
eGFR > 60.00 10/12/24 05:01
Physical Exam
HEENT: Moist Mucous Membranes; No Jaundice
Pulmonary: Other (unlabored)
GI: Soft and Distended
Extremities: Pulses Present and Edema
[2024-10-13 11:10] VITALS: BP 105/63
--- NOTE | 2024-10-13 14:16 | CM ---
Spoke with patient and her friend who was at bedside. Patient stated that she would like to go to [facility] for rehab. Referral sent through [facility]. Spoke with Lucrecia in admissions who confirmed acceptance # For report [phone] # For
fax #[phone]. Medical necessity completed as well as transfer sheet for 4e unit support representative. No auth needed.
Plan: Case management will continue to follow and assist with discharge planning. Transfer to [facility] today.
--- NOTE | 2024-10-13 14:53 | W.PN.HOSP.TC ---
Addendum entered and electronically signed by Justin Álvarez MD 10/14/24 08:07:
Stage 1 sacral pressure injury, POA.'
Pt with temporal wasting, orbital area sunken in, apparent ribs, and protrusion of clavicle.
With observed muscle and fat wasting, as well as < 75% estimated needs > 1 month pt meets AND/ASPEN criteria for moderate protein calorie malnutrition of chronic illness
10/05 pt lactic acid was 4.6 suggestive of lactic acidosis.
Original Note:
Today's Communication/Plan
-
dc
Assessment / Plan
Assessment / Plan
Assessment:
Systemic Inflammatory Response Syndrome
- cultures negative
- para fluid no SBP, thora fluid negative cultures
- ID evaluated - currently off Abx
Hypotension requiring vasopressors suggestive of shock - septic etiology ruled out
- Echocardiogram this month showed normal EF with no significant valvular abnormalities.
- continue Midodrine TID
Esophagitis
Hiatal hernia
- continue magic mouthwash prn
- continue Carafate/PPI
Sinus Tachycardia
- Review of records indicate heart rate around 100-110s during prior admission
- Monitor on Telemetry
- TSH recently was 5.7. CT chest negative for PE. Echo with normal EF.
- Suspect possibly malignancy related
Stage IV Metastatic Ovarian Cancer
Peritoneal Carcinomatosis
Recurrent malignant Ascites/Pleural Effusion
- Last Chemo 2 weeks ago (Dr. Ellington)
- s/p Paracentesis 09/30, 10/04 , 10/07, 10/11
- has scheduled OP paracentesis with Oncology service weekly
- Appreciate TELEPHONE MECHANIC oncology and medical oncology input-holding chemotherapy for this Friday pending improvement in functional status.
Hypomagnesemia
Hypokalemia
Hypocalcemia
- Improved
- CW calcium and magnesium supplementation
Hyponatremia-intermittent. Suspect may have been multifactorial including nausea, liver dz. Will follow for now.
Right Lower Extremity DVT - September 2024
- continue Eliquis
Anemia
- normocytic
- Drop in H&H noted with a suspect may be dilutional. She is also on chemo causing anemia and possible thrombocytopenia. Follow H&H for now.
Thrombocytopenia related to malignancy and chemotherapy
DVT ppx: Eliquis
Code: Full
Dispo: to SNF when bed available
DW CM -likely bed available today
DW at bedside
Total time of dc 35 min
Anticipated Discharge: Today
Subjective/Interval History
-
Date of Service: October 13, 2024
Still feeling weak. Poor functional status.
No nausea vomiting. Tolerating diet.
Denies any dizziness.
Slow reaccumulation of ascites per patient. No abdominal pain.
Objective Data
-
Vital Signs:
Vital Signs
Temp Pulse Resp BP Pulse Ox
97.5 F 134 18 105/63 99
10/13/24 11:10 10/13/24 11:10 10/13/24 11:10 10/13/24 11:10 10/13/24 11:10
I&O
10/12/24 10/13/24 10/14/24
06:59 06:59 06:59
Intake Total 780 / 780 1020 / 1020
Balance 780 / 780 1020 / 1020
Physical Exam
-
Respiratory: Clear to Auscultation and Non Labored Respirations; Negative Accessory Resp Muscle Use
Cardiac: Regular Rhythm and S1/S2; Negative Tachycardic
GI: Soft, Nontender, Normal Bowel Sounds and Distended
Neuro: AO x 3; Negative Tremors
Psych: Calm
Data Reviewed
-
Labs: Labs Reviewed by me
[2024-10-13 15:05] VITALS: BP 95/61
[2024-10-13 19:20] VITALS: BP 94/56
== END 2024-10-13 20:23 | DRG 374 ==
LOC: 4 EAST ACU 18:30
PROVIDERS: Emergency Medicine; Internal Medicine; Physician Assistant; Physician Assistant Medical; Radiology Vascular & Interventional Radiology; Registered Nurse; ADMITTING PHYSICIAN Hospitalist; ATTENDING PHYSICIAN Internal Medicine; CONSULT PHYSICIAN Obstetrics & Gynecology Gynecologic Oncology; EMERGENCY PHYSICIAN Emergency Medicine; FAMILY PHYSICIAN Nurse Practitioner Family; OTHER PHYSICIAN Internal Medicine Hematology & Oncology; OTHER PHYSICIAN Internal Medicine Infectious Disease
PROC: 0W993ZZ Drainage of Right Pleural Cavity, Percutaneous Approach (ICD-10-PCS; 2024-10-06)
PROC: 0W9G3ZZ Drainage of Peritoneal Cavity, Percutaneous Approach (ICD-10-PCS; 2024-10-07)
DX: C78.6 Secondary malignant neoplasm of retroperitoneum and peritoneum (principal); D61.810 Antineoplastic chemotherapy induced pancytopenia; J91.0 Malignant pleural effusion; C56.1 Malignant neoplasm of right ovary; R18.0 Malignant ascites; E87.1 Hypo-osmolality and hyponatremia; R65.10 Systemic inflammatory response syndrome (SIRS) of non-infectious origin without acute organ dysfunction; E44.0 Moderate protein-calorie malnutrition; Z85.3 Personal history of malignant neoplasm of breast; Z80.0 Family history of malignant neoplasm of digestive organs; Z86.718 Personal history of other venous thrombosis and embolism; K20.90 Esophagitis, unspecified without bleeding; K44.9 Diaphragmatic hernia without obstruction or gangrene; E83.42 Hypomagnesemia; E87.6 Hypokalemia; E83.51 Hypocalcemia; L89.151 Pressure ulcer of sacral region, stage 1; Z68.20 Body mass index [BMI] 20.0-20.9, adult; T45.1X5A Adverse effect of antineoplastic and immunosuppressive drugs, initial encounter; E78.00 Pure hypercholesterolemia, unspecified; Z79.01 Long term (current) use of anticoagulants; Z79.899 Other long term (current) drug therapy; Z87.442 Personal history of urinary calculi; Z11.52 Encounter for screening for COVID-19
CPT/HCPCS: 32555; 49083; 71045; 71275; 80048; 80053; 81003; 81015; 82042; 82150; 82533; 82945; 82962; 83605; 83615; 83735; 83986; 84155; 84157; 84478; 84484; 85025; 85027; 85610; 86308; 87015; 87040; 87070; 87086; 87205; 87811; 87880; 89051; 92526; 92610; 93005; 93975; 96361; 96374; 96375; 97163; 97164; 97167; 97530; 97535; 99285; Q9967

== ENCOUNTER → 2024-10-19 09:48 | Outpatient (REF) | payer MEDICARE, OTHER, SELFPAY ==
[2024-10-19 10:00] VITALS: BP 113/73; BP_SYST 96
[2024-10-19 10:30] VITALS: BP 99/66; BP_SYST 92
[2024-10-19 10:45] VITALS: BP 100/66; BP_SYST 96
[2024-10-19 12:48] LABS: Body Fluid Second Tech CMB
== END ==
LOC: RADI 09:48
PROVIDERS: ATTENDING PHYSICIAN Internal Medicine Hematology & Oncology; FAMILY PHYSICIAN Nurse Practitioner Family
DX: C80.1 Malignant (primary) neoplasm, unspecified (principal); R18.0 Malignant ascites
CPT/HCPCS: 49083; 89051

== ENCOUNTER → 2024-10-26 09:42 | Outpatient (REF) | payer MEDICARE, OTHER, SELFPAY ==
[2024-10-26 09:56] VITALS: BP 104/63; BP_SYST 87
[2024-10-26 11:45] LABS: Hematocrit 29.4 % (37.0-47.0); Hemoglobin 9.1 g/dL (12.0-16.0); Mean Corp Hgb Conc. 31.0 g/dL (33.0-37.0); Mean Corpuscular Volume 90.2 fL (81.0-99.0); Nucleated Red Blood Cells % 0 %; Platelet Count 333 10^3/uL (130-400); Red Cell Dist. Width 23.5 % (11.5-14.5)
[2024-10-26 12:04] LABS: ALT (SGPT) 12 U/L (0-35); AST (SGOT) 25 U/L (14-36); Albumin 3.2 g/dl (3.5-5.0); Alkaline Phosphatase 113 U/L (38-126); Blood Urea Nitrogen 10 mg/dl (7-17); Calcium 8.8 mg/dl (8.4-10.2); Carbon Dioxide 30 mmol/L (22-30); Chloride 104 mmol/L (98-107); Glucose 84 mg/dl (70-99); Potassium 4.2 mmol/L (3.5-5.1); Sodium 138 mmol/L (135-145); Total Protein 5.9 g/dl (6.3-8.2); eGFR > 60.00
[2024-10-26 12:06] LABS: Anisocytosis 1+; Hypochromasia 1+; Normal RBC Morphology No
[2024-10-26 12:08] LABS: Polychromasia 1+; Stomatocytes 1+
== END ==
LOC: RADI 09:42
PROVIDERS: ATTENDING PHYSICIAN Internal Medicine Hematology & Oncology; FAMILY PHYSICIAN Nurse Practitioner Family
DX: R14.0 Abdominal distension (gaseous) (principal); R18.0 Malignant ascites; Z53.8 Procedure and treatment not carried out for other reasons; C80.0 Disseminated malignant neoplasm, unspecified; C56.9 Malignant neoplasm of unspecified ovary; C56.1 Malignant neoplasm of right ovary; J91.0 Malignant pleural effusion; Z15.01 Genetic susceptibility to malignant neoplasm of breast; Z15.02 Genetic susceptibility to malignant neoplasm of ovary; Z86.718 Personal history of other venous thrombosis and embolism
CPT/HCPCS: 36415; 76705; 80053; 85025

== ENCOUNTER → 2024-11-02 09:40 | Outpatient (REF) | payer MEDICARE, OTHER, SELFPAY ==
[2024-11-02 09:45] VITALS: BP 106/61; BP_SYST 77
[2024-11-02 10:20] VITALS: BP 108/57
== END ==
LOC: RADI 09:40
PROVIDERS: ATTENDING PHYSICIAN Internal Medicine Hematology & Oncology; FAMILY PHYSICIAN Nurse Practitioner Family
DX: R18.8 Other ascites (principal); R14.0 Abdominal distension (gaseous); Z53.8 Procedure and treatment not carried out for other reasons
CPT/HCPCS: 76705

== ENCOUNTER → 2024-11-09 09:43 | Outpatient (REF) | payer MEDICARE, OTHER, SELFPAY ==
[2024-11-09 10:07] VITALS: BP 101/62; BP_SYST 62
== END ==
LOC: RADI 09:43
PROVIDERS: ATTENDING PHYSICIAN Internal Medicine Hematology & Oncology; FAMILY PHYSICIAN Nurse Practitioner Family
DX: R18.8 Other ascites (principal); R14.0 Abdominal distension (gaseous); Z53.8 Procedure and treatment not carried out for other reasons
CPT/HCPCS: 76705

== ENCOUNTER → 2024-11-16 09:39 | Outpatient (REF) | payer MEDICARE, OTHER, SELFPAY ==
[2024-11-16 10:20] VITALS: BP 98/65; BP_SYST 94
== END ==
LOC: RADI 09:39
PROVIDERS: ATTENDING PHYSICIAN Internal Medicine Hematology & Oncology
DX: R18.8 Other ascites (principal); Z53.8 Procedure and treatment not carried out for other reasons
CPT/HCPCS: 76705

== ENCOUNTER → 2024-11-23 15:10 | Outpatient (REF) | payer MEDICARE, OTHER, SELFPAY ==
[2024-11-23 17:40] LABS: Urine Character Clear (Clear)
[2024-11-23 18:31] LABS: Urine Urothelial Cell 0-2 /LPF (FEW)
[2024-11-23 18:32] LABS: Urine Red Blood Cell 0-2 /HPF (0-2)
== END ==
LOC: REG 15:10
PROVIDERS: ATTENDING PHYSICIAN Nurse Practitioner Family
DX: N39.0 Urinary tract infection, site not specified (principal)
CPT/HCPCS: 81003; 81015; 87086

== ENCOUNTER → 2024-12-02 12:30 | Outpatient (REF) | payer MEDICARE, OTHER, SELFPAY ==
[2024-12-02 19:33] LABS: Urine Character Cloudy (Clear)
== END ==
LOC: OLAB 12:30
PROVIDERS: ATTENDING PHYSICIAN Nurse Practitioner Family; OTHER PHYSICIAN Internal Medicine Hematology & Oncology
DX: N39.0 Urinary tract infection, site not specified (principal)
CPT/HCPCS: 81003

== ENCOUNTER → 2024-12-10 07:43 | Outpatient (REF) | payer MEDICARE, OTHER, SELFPAY ==
[2024-12-10 09:54] LABS: Urine Character Clear (Clear)
[2024-12-10 11:24] LABS: Urine Red Blood Cell 0-2 /HPF (0-2)
== END ==
LOC: REG 07:43
PROVIDERS: ATTENDING PHYSICIAN Nurse Practitioner Family
DX: R39.9 Unspecified symptoms and signs involving the genitourinary system (principal)
CPT/HCPCS: 81003; 81015; 87086

== ENCOUNTER → 2025-02-15 10:53 | Outpatient (REF) | payer OTHER, MEDICARE, SELFPAY ==
[2025-02-15 11:59] LABS: Hematocrit 31.1 % (37.0-47.0); Hemoglobin 9.5 g/dL (12.0-16.0); Mean Corp Hgb Conc. 30.5 g/dL (33.0-37.0); Mean Corpuscular Volume 90.1 fL (81.0-99.0); Nucleated Red Blood Cells % 0 %; Platelet Count 737 10^3/uL (130-400); Red Cell Dist. Width 16.2 % (11.5-14.5)
[2025-02-15 13:44] LABS: Urine Character Clear (Clear)
[2025-02-15 16:13] LABS: ALT (SGPT) 21 U/L (0-35); AST (SGOT) 43 U/L (14-36); Albumin 4.2 g/dl (3.5-5.0); Alkaline Phosphatase 284 U/L (38-126); Blood Urea Nitrogen 11 mg/dl (7-17); Calcium 9.2 mg/dl (8.4-10.2); Carbon Dioxide 23 mmol/L (22-30); Chloride 105 mmol/L (98-107); Glucose 82 mg/dl (70-99); Magnesium 1.9 mg/dl (1.6-2.3); Potassium 5.4 mmol/L (3.5-5.1); Sodium 137 mmol/L (135-145); Total Protein 7.9 g/dl (6.3-8.2); eGFR > 60.00
== END ==
LOC: OLABN 10:53
PROVIDERS: ATTENDING PHYSICIAN Student in an Organized Health Care Education/Training Program
DX: D62 Acute posthemorrhagic anemia (principal); D72.829 Elevated white blood cell count, unspecified
CPT/HCPCS: 36415; 80053; 81003; 83735; 85025

== ENCOUNTER → 2025-02-22 11:28 | Outpatient (REF) | payer OTHER, MEDICARE, SELFPAY ==
[2025-02-22 12:36] LABS: Hematocrit 30.6 % (37.0-47.0); Hemoglobin 9.3 g/dL (12.0-16.0); Mean Corp Hgb Conc. 30.4 g/dL (33.0-37.0); Mean Corpuscular Volume 90.8 fL (81.0-99.0); Nucleated Red Blood Cells % 0 %; Platelet Count 537 10^3/uL (130-400); Red Cell Dist. Width 15.9 % (11.5-14.5)
[2025-02-22 12:45] LABS: ALT (SGPT) 19 U/L (0-35); AST (SGOT) 35 U/L (14-36); Albumin 3.9 g/dl (3.5-5.0); Alkaline Phosphatase 267 U/L (38-126); Blood Urea Nitrogen 13 mg/dl (7-17); Calcium 8.9 mg/dl (8.4-10.2); Carbon Dioxide 26 mmol/L (22-30); Chloride 101 mmol/L (98-107); Glucose 79 mg/dl (70-99); Magnesium 1.8 mg/dl (1.6-2.3); Potassium 4.9 mmol/L (3.5-5.1); Sodium 136 mmol/L (135-145); Total Protein 7.3 g/dl (6.3-8.2); eGFR > 60.00
[2025-02-23 09:12] LABS: HDL Cholesterol 34 mg/dl; LDL Cholesterol, Calculated 133 mg/dl; Very Low Density Lipoprotein 24 mg/dl (0-30)
== END ==
LOC: OLABN 11:28
PROVIDERS: ATTENDING PHYSICIAN Student in an Organized Health Care Education/Training Program
DX: D62 Acute posthemorrhagic anemia (principal); D72.829 Elevated white blood cell count, unspecified; E78.5 Hyperlipidemia, unspecified
CPT/HCPCS: 36415; 80053; 80061; 83735; 85025